=== PATIENT | male | born 1950 | race Caucasian/White ===

== ENCOUNTER → 2017-01-17 | Outpatient (REF) | payer MEDICARE | LOC: M LAB REF 16:33 | PROVIDERS: ATTEND Nurse Practitioner Adult Health | DX: G25.0 Essential tremor (principal) ==

== ENCOUNTER → 2017-03-29 | Outpatient (REF) | payer MEDICARE ==
[2017-04-03 00:06] LABS: PHENOBARBITAL (PRIMIDONE) 18 ug/mL (15-40)
== END ==
LOC: M LAB REF 17:25
PROVIDERS: ATTEND Nurse Practitioner Adult Health
DX: G25.0 Essential tremor (principal); Z79.899 Other long term (current) drug therapy

== ENCOUNTER → 2017-06-06 | Outpatient (REF) | payer MEDICARE | LOC: M LAB REF 17:44 | PROVIDERS: ATTEND Nurse Practitioner Adult Health | DX: D52.8 Other folate deficiency anemias (principal) ==

== ENCOUNTER → 2017-12-07 | Outpatient (REF) | payer MEDICARE ==
[2017-12-09 15:07] LABS: QUANTIFERON GOLD TB Negative (Negative); TB Test (QFT) Antigen 0.05 IU/mL (.); TB Test (QFT) Mitogen 6.33 IU/mL (.); TB Test (QFT) Nil 0.05 IU/mL (.)
== END ==
LOC: M LAB REF 14:22
DX: Z11.1 Encounter for screening for respiratory tuberculosis (principal)
CPT/HCPCS: 86480

== ENCOUNTER → 2018-06-20 | Outpatient (REF) | payer MEDICARE ==
[2018-06-22 08:06] LABS: LDL DIRECT 112 mg/dL (0-99)
== END ==
LOC: M LAB REF 16:44
DX: E78.5 Hyperlipidemia, unspecified (principal)
CPT/HCPCS: 83721

== ENCOUNTER 2018-06-30 17:43 | Emergency (ER) | payer MEDICARE ==
[~2018-06-30] VITALS: Ht 180.3 cm; Wt 132.3 kg
[2018-06-30] MEDS ORDERED: LOSA-4 PO (17:57)
[2018-06-30] MEDS ORDERED: PRIM125TAB PO (17:57)
[2018-06-30] MEDS ORDERED: HYDR-3713 PO (17:57)
[2018-06-30] MEDS ORDERED: METO1TAB33 PO (17:57)
[2018-06-30] MEDS ORDERED: SIMV40TA2 PO (17:57)
[2018-06-30] MEDS ORDERED: METH2.5T48 PO (17:57)
[2018-06-30] MEDS ORDERED: NS 1,000 ML IV ONE (18:15)
[2018-06-30 18:38] LABS: BASO % 0.3 % (0.0-1.0); EOS % 0.3 % (0.0-3.0); HEMATOCRIT 41.8 % (42.0-52.0); HEMOGLOBIN 14.8 g/dl (13.5-17.5); LYMPH # 1.1 10^3/uL (1.5-4.5); LYMPH % 14.4 % (24.0-44.0); MEAN CORPUSCULAR HEMOGLOBIN 35.7 pg (27.0-33.0); MEAN CORPUSCULAR HGB CONC 35.4 g/dl (32.0-36.5); MONO # 0.3 10^3/uL (0.0-0.8); NEUTROPHILS # 6.3 10^3/uL (1.8-7.7); NEUTROPHILS % 80.9 % (36.0-66.0); PLATELET COUNT, AUTOMATED 162 10^3/uL (150-450); RED BLOOD COUNT 4.14 10^6/uL (4.30-6.10); WHITE BLOOD COUNT 7.8 10^3/uL (4.0-10.0)
[2018-06-30 19:07] LABS: ALBUMIN 4.4 GM/DL (3.2-5.2); ALT/SGPT 50 U/L (12-78); BILIRUBIN,DIRECT 0.1 MG/DL (0.0-0.2); BILIRUBIN,TOTAL 0.3 MG/DL (0.2-1.0); BLOOD UREA NITROGEN 23 MG/DL (7-18); CALCIUM LEVEL 9.1 MG/DL (8.8-10.2); CARBON DIOXIDE LEVEL 26 MEQ/L (21-32); CHLORIDE LEVEL 104 MEQ/L (98-107); CREATININE FOR GFR 0.96 MG/DL (0.70-1.30); GLOMERULAR FILTRATION RATE > 60.0 (>49); GLUCOSE, FASTING 111 MG/DL (70-100); LIPASE 80 U/L (73-393); POTASSIUM SERUM 4.2 MEQ/L (3.5-5.1); SODIUM LEVEL 139 MEQ/L (136-145); TOTAL PROTEIN 7.7 GM/DL (6.4-8.2)
[2018-06-30] MEDS ORDERED: KETOROLAC 30 MG/ML VIAL (J1885) IV ONE (19:30)
[2018-06-30] MEDS ORDERED: ISOVUE-370 76% 100ML VIAL (Q9967) As Ordered ONE (19:42)
--- NOTE | 2018-06-30 20:14 | REP ---
Clinical: Lower abdominal pain. Technique: Axial contrast enhanced images from the lung bases to the pubic symphysis using 100 ml Isovue 370 intravenous contrast material with coronal and sagittal re-formations. Comparison: None. Findings: Lung bases demonstrate chronic fibroatelectatic changes. Liver, spleen, gallbladder, pancreas, bilateral adrenal glands and kidneys are essentially normal. 3 mm nonobstructing left renal calculus identified along with mild chronic bilateral perinephric stranding. The enteric system is without obstruction or acute inflammatory process. Normal terminal ileum, cecum and appendix are identified in the right lower quadrant. Extensive colonic and sigmoid diverticulosis noted. No definite evidence for acute diverticulitis. Pelvis demonstrates normal bladder and age appropriate prostate/seminal vesicles. No ascites. No free air. No intraperitoneal or retroperitoneal adenopathy. Surrounding musculoskeletal structures demonstrate degenerative change without focal osseous abnormality. Impression: 1. Extensive diverticulosis without definite evidence for acute diverticulitis. 2. 3 mm nonobstructing left renal calculus. 3. No further acute abdominopelvic pathology appreciated. This typically, no ascites, focal inflammatory stranding or adenopathy noted. Electronically Signed by Sameer Newsome MD 06/30/2018 08:06 P
--- NOTE | 2018-07-01 00:19 | REPVR ---
EXAM: MR Lumbar Spine Without Contrast. EXAM DATE/TIME: 06/30/2018 11:15 PM CLINICAL HISTORY: 68 years old, male; Anal leakage; Loss of anal tone TECHNIQUE: Multiplanar magnetic resonance images of the lumbar spine without intravenous contrast. COMPARISON: UN - CT ABD/PEL W/IV CONTRAST ONLY 06/30/2018 7:43:03 PM FINDINGS: Vertebrae: There is a lumbosacral transitional vertebra, which will be designated as S1 above the last well-defined intervertebral disc, and there is broadening of the both transverse proceses of the lumbosacral transitional vertebra, which are fused to both sides of the sacrum (Castellvi type IIIb lumbosacral transitional vertebra) and this stabilizes the level below the lumbosacral transitional vertebra and leads to the propensity for increased mobility and degenerative disc disease at the level above the lumbosacral transitional vertebra (Bertolotti's syndrome). There is a slight levoscoliosis of the lumbar spine. There is no fracture or subluxation. The vertebral body heights are preserved. Marrow: There is no infiltrative marrow replacing process. There is no evidence for discitis or osteomyelitis. Epidural space: There is no abnormal epidural fluid collection. Spinal cord: The conus medullaris is normal and terminates at the T12-L1 level. DISCS/SPINAL CANAL/NEURAL FORAMINA: T12-L1: Axial imaging was not performed at this level. The disc height is preserved. No disc herniation, spinal canal stenosis, lateral recess stenosis, or neural foraminal stenosis is noted. There are endplate spurs and mild osteoarthritis of the right facet joint. L1-L2: The disc height is preserved. There is desiccation, vacuum phenomenon in the intervertebral disc, mild endplate edema on both sides of the disc space, and endplate spurs projecting anteriorly. No disc herniation, spinal canal stenosis, lateral recess stenosis, or neural foraminal stenosis is noted. The facet joints are unremarkable. L2-L3: There is mild loss of disc height, desiccation, vacuum phenomenon in the intervertebral disc, a 3 mm broad-based posterior disc osteophyte complex, mild osteoarthritis of the facet joints, and endplate spurs. There is mild bilateral neural foraminal stenosis. No spinal canal stenosis or lateral recess stenosis is noted. L3-L4: There is mild loss of disc height dorsally, disc desiccation, mild endplate edema on both sides of the posterior aspect of the disc space, a 2 mm broad-based posterior protrusion, fissuring of the posterior portion of the annulus fibrosis, mild osteoarthritis of the right facet joint, endplate spurs, and increased epidural fat posteriorly. There is mild bilateral neural foraminal stenosis. No spinal canal stenosis or lateral recess stenosis is noted. L4-L5: The disc height is preserved. There is disc desiccation, a 2 mm broad-based posterior protrusion, fatty endplate degenerative changes on both sides of the posterior aspect of the disc space, mild osteoarthritis of the facet joints, increased epidural fat posteriorly, and thickening of the ligamentum flavum. No spinal canal stenosis, lateral recess stenosis, or neural foraminal stenosis is noted. L5-S1: The disc height is preserved. There is disc desiccation, a 2 mm broad-based posterior protrusion, and severe osteoarthritis of the facet joints. No spinal canal stenosis, lateral recess stenosis, or neural foraminal stenosis is noted. S1-S2: There is a lumbosacral transitional vertebra at this level. The disc height is preserved. No disc herniation, spinal canal stenosis, lateral recess stenosis, or neural foraminal stenosis is noted. The facet joints are normal. Soft tissues: No ligamentous sprain or muscular strain is noted. No soft tissue fluid collection is seen. There is nonspecific edema in the subcutaneous tissues dorsally along the midline of the lumbosacral spine. IMPRESSION: 1. Degenerative changes in the lumbar spine as detailed above, but without any severe spinal canal stenosis, lateral recess stenosis, neural foraminal stenosis, or nerve impingement. 2. L2-L3: Mild bilateral neural foraminal stenosis. 3. L3-L4: Mild bilateral neural foraminal stenosis. Electronically signed by: Harry Hernández On 07/01/2018 00:18:32 AM
[2018-07-01] MEDS ORDERED: MORPHINE 4 MG/ML 1ML VIAL/SYRINGE (J2270) IV ONE (01:15)
[2018-07-01 02:11] VITALS: BP 153/70
== END 2018-07-01 02:15 | disposition short-term general hospital (02) ==
LOC: M ED 17:43
DX: R15.9 Full incontinence of feces (principal); N20.0 Calculus of kidney; I10 Essential (primary) hypertension; G25.0 Essential tremor; E78.5 Hyperlipidemia, unspecified; Z87.891 Personal history of nicotine dependence
CPT/HCPCS: 72148; 74177; 80048; 80076; 81001; 83605; 83690; 85025; 96374; 96375; 99291; J1885; J2270; Q9967

== ENCOUNTER → 2018-10-04 | Outpatient (REF) | payer MEDICARE ==
[~2018-10-04] MED LIST: HYDR-3713 PO; LOSA100T50 PO; METH2.5T48 PO; METO1TAB33 PO; PRIM125TAB PO; SIMV40TA2 PO
[2018-10-04 14:17] LABS: INFLUENZA A AMPLIFICATION NEGATIVE (NEGATIVE); INFLUENZA B AMPLIFICATION NEGATIVE (NEGATIVE)
== END ==
LOC: M LAB REF 13:21
PROVIDERS: ATTEND Nurse Practitioner Family
DX: B34.9 Viral infection, unspecified (principal)

== ENCOUNTER → 2018-10-15 | Outpatient (REF) | payer MEDICARE | LOC: M LAB REF 17:00 | PROVIDERS: ATTEND Nurse Practitioner Adult Health | DX: R53.81 Other malaise (principal) ==

== ENCOUNTER → 2018-11-08 | Outpatient (REF) | payer MEDICARE ==
[2018-11-08 18:19] LABS: HEMATOCRIT 40.3 % (42.0-52.0); MEAN CORPUSCULAR HEMOGLOBIN 35.5 pg (27.0-33.0); MEAN CORPUSCULAR HGB CONC 34.7 g/dl (32.0-36.5); MEAN CORPUSCULAR VOLUME 102.3 fl (80.0-96.0); PLATELET COUNT, AUTOMATED 126 10^3/uL (150-450); RED BLOOD COUNT 3.94 10^6/uL (4.30-6.10)
[2018-11-08 18:40] LABS: ALBUMIN 4.2 GM/DL (3.2-5.2); ALT/SGPT 41 U/L (12-78); BILIRUBIN,DIRECT < 0.1 MG/DL (0.0-0.2); BILIRUBIN,TOTAL 0.4 MG/DL (0.2-1.0); TOTAL PROTEIN 7.4 GM/DL (6.4-8.2)
[2018-11-11 10:23] LABS: HEPATITIS B SURFACE ANTIBODY NEGATIVE (POSITIVE)
[2018-11-11 10:33] LABS: HEPATITIS B SURFACE ANTIGEN NEGATIVE (NEGATIVE)
== END ==
LOC: M SFHCPLAZ 14:59
PROVIDERS: ATTEND Dermatology
DX: L85.3 Xerosis cutis (principal)

== ENCOUNTER → 2019-10-15 | Outpatient (REF) | payer MEDICARE ==
[~2019-10-15] MED LIST changes: -SIMV40TA2 PO; +SIMV40TA20 PO
[2019-10-15 11:21] LABS: ALBUMIN 4.3 GM/DL (3.2-5.2); ALT/SGPT 31 U/L (12-78); BILIRUBIN,TOTAL 0.4 MG/DL (0.2-1.0); BLOOD UREA NITROGEN 21 MG/DL (7-18); CALCIUM LEVEL 8.9 MG/DL (8.8-10.2); CARBON DIOXIDE LEVEL 29 MEQ/L (21-32); CHLORIDE LEVEL 102 MEQ/L (98-107); CREATININE FOR GFR 0.75 MG/DL (0.70-1.30); GLOMERULAR FILTRATION RATE > 60.0 (>42); GLUCOSE, FASTING 95 MG/DL (70-100); POTASSIUM SERUM 4.1 MEQ/L (3.5-5.1); SODIUM LEVEL 138 MEQ/L (136-145); TOTAL PROTEIN 7.4 GM/DL (6.4-8.2)
== END ==
LOC: M SFHCPLAZ 08:50
PROVIDERS: ATTEND Nurse Practitioner Family
DX: I10 Essential (primary) hypertension (principal)

== ENCOUNTER → 2019-11-03 | Outpatient (REF) | payer MEDICARE ==
[2019-11-03 13:40] LABS: ALBUMIN 4.3 GM/DL (3.2-5.2); ALT/SGPT 33 U/L (12-78); BILIRUBIN,TOTAL 0.3 MG/DL (0.2-1.0); BLOOD UREA NITROGEN 17 MG/DL (7-18); CALCIUM LEVEL 9.1 MG/DL (8.8-10.2); CARBON DIOXIDE LEVEL 28 MEQ/L (21-32); CHLORIDE LEVEL 106 MEQ/L (98-107); CHOLESTEROL LEVEL 229 MG/DL (<200); CHOLESTEROL RISK RATIO 5.725 (<5); CREATININE FOR GFR 0.79 MG/DL (0.70-1.30); GLOMERULAR FILTRATION RATE > 60.0 (>42); GLUCOSE, FASTING 112 MG/DL (70-100); HDL CHOLESTEROL 40 MG/DL (>40); LDL CHOLESTEROL 121 MG/DL (<100); NON-HDL-C 189 MG/DL; POTASSIUM SERUM 4.6 MEQ/L (3.5-5.1); SODIUM LEVEL 141 MEQ/L (136-145); TOTAL PROTEIN 7.6 GM/DL (6.4-8.2); TRIGLYCERIDES LEVEL 339 MG/DL (<150)
[2019-11-03 13:48] LABS: TOTAL 25(OH) VITAMIN D 23.5 NG/ML (30.0-100.0)
[2019-11-03 14:02] LABS: CREATININE, URINE 29.4 MG/DL; MALB URINE SIEMENS < 5.0 MG/L
== END ==
LOC: M PLALAB 10:28
PROVIDERS: ATTEND Nurse Practitioner Family
DX: E78.2 Mixed hyperlipidemia (principal); Z12.5 Encounter for screening for malignant neoplasm of prostate; I10 Essential (primary) hypertension; M19.91 Primary osteoarthritis, unspecified site
CPT/HCPCS: 36415; 80053; 80061; 82043; 82306; G0103

== ENCOUNTER → 2019-12-25 | Outpatient (REF) | payer MEDICARE ==
[2019-12-25 13:35] LABS: BASO % 0.5 % (0.0-1.0); EOS # 0.1 10^3/uL (0.0-0.5); EOS % 2.1 % (0.0-3.0); HEMATOCRIT 40.6 % (42.0-52.0); LYMPH # 1.7 10^3/uL (1.5-5.0); LYMPH % 40.1 % (24.0-44.0); MEAN CORPUSCULAR HEMOGLOBIN 34.3 pg (27.0-33.0); MEAN CORPUSCULAR HGB CONC 34.5 g/dl (32.0-36.5); MEAN CORPUSCULAR VOLUME 99.5 fl (80.0-96.0); MONO # 0.3 10^3/uL (0.0-0.8); MONO % 6.7 % (0.0-5.0); NEUTROPHILS # 2.1 10^3/uL (1.5-8.5); NEUTROPHILS % 49.9 % (36.0-66.0); PLATELET COUNT, AUTOMATED 138 10^3/uL (150-450); RED BLOOD COUNT 4.08 10^6/uL (4.30-6.10); WHITE BLOOD COUNT 4.2 10^3/uL (4.0-10.0)
[2019-12-25 13:56] LABS: C REACTIVE PROTEIN QUANTITATIV 0.85 MG/DL (0.00-0.30); RHEUMATOID FACTOR QUANT < 10.0 IU/ML (<15.0)
[2019-12-25 14:06] LABS: ERYTHROCYTE SEDIMENTATION RATE 13 mm/hr (0-20)
[2019-12-26 21:07] LABS: ANA (HEP2) Positive (.)
== END ==
LOC: M SFHCPLAZ 12:24
PROVIDERS: ATTEND Nurse Practitioner Family
DX: M25.50 Pain in unspecified joint (principal)

== ENCOUNTER → 2020-02-11 | Outpatient (REF) | payer MEDICARE ==
[2020-03-27 11:47] LABS: ALBUMIN 4.4 GM/DL (3.2-5.2); ALT/SGPT 34 U/L (12-78); BILIRUBIN,TOTAL 0.3 MG/DL (0.2-1.0); BLOOD UREA NITROGEN 21 MG/DL (7-18); CARBON DIOXIDE LEVEL 30 MEQ/L (21-32); CHLORIDE LEVEL 108 MEQ/L (98-107); CHOLESTEROL LEVEL 206 MG/DL (<200); CHOLESTEROL RISK RATIO 4.681 (<5); CREATININE FOR GFR 0.75 MG/DL (0.70-1.30); GLOMERULAR FILTRATION RATE > 60.0 (>42); GLUCOSE, FASTING 116 MG/DL (70-100); HDL CHOLESTEROL 44 MG/DL (>40); HEMOGLOBIN A1c 5.6 %; LDL CHOLESTEROL 94 MG/DL (<100); NON-HDL-C 162 MG/DL; POTASSIUM SERUM 4.2 MEQ/L (3.5-5.1); SODIUM LEVEL 142 MEQ/L (136-145); TOTAL 25(OH) VITAMIN D 26.5 NG/ML (30.0-100.0); TOTAL PROTEIN 7.4 GM/DL (6.4-8.2); TRIGLYCERIDES LEVEL 342 MG/DL (<150)
== END ==
LOC: M SFHCPLAZ 09:06
PROVIDERS: ATTEND Nurse Practitioner Family
DX: R73.01 Impaired fasting glucose (principal); E55.9 Vitamin D deficiency, unspecified; I10 Essential (primary) hypertension; E78.2 Mixed hyperlipidemia; Z79.899 Other long term (current) drug therapy

== ENCOUNTER → 2020-08-18 | Outpatient (REF) | payer MEDICARE ==
[2020-08-18 13:33] LABS: HEMATOCRIT 42.5 % (42.0-52.0); HEMOGLOBIN 14.4 g/dl (13.5-17.5); MEAN CORPUSCULAR HEMOGLOBIN 33.5 pg (27.0-33.0); MEAN CORPUSCULAR HGB CONC 33.9 g/dl (32.0-36.5); MEAN CORPUSCULAR VOLUME 98.8 fl (80.0-96.0); PLATELET COUNT, AUTOMATED 161 10^3/uL (150-450); WHITE BLOOD COUNT 4.4 10^3/uL (4.0-10.0)
[2020-08-18 14:03] LABS: BLOOD UREA NITROGEN 24 MG/DL (7-18); CALCIUM LEVEL 9.6 MG/DL (8.8-10.2); CARBON DIOXIDE LEVEL 31 MEQ/L (21-32); CHLORIDE LEVEL 103 MEQ/L (98-107); CREATININE FOR GFR 0.88 MG/DL (0.70-1.30); GLOMERULAR FILTRATION RATE > 60.0 (>42); GLUCOSE, FASTING 100 MG/DL (70-100); POTASSIUM SERUM 4.2 MEQ/L (3.5-5.1); SODIUM LEVEL 141 MEQ/L (136-145)
[2020-08-18 14:57] LABS: HEMOGLOBIN A1c 5.5 %
== END ==
LOC: M SFHCPLAZ 09:46
PROVIDERS: ATTEND Nurse Practitioner Adult Health
DX: R73.01 Impaired fasting glucose (principal); R68.89 Other general symptoms and signs; Z20.822 Contact with and (suspected) exposure to COVID-19
CPT/HCPCS: 36415; 80048; 83036; 85027; U0003

== ENCOUNTER → 2020-12-27 | Outpatient (REF) | payer MEDICARE ==
[2020-12-27 18:15] LABS: ALBUMIN 4.2 GM/DL (3.2-5.2); ALT/SGPT 32 U/L (12-78); BILIRUBIN,TOTAL 0.3 MG/DL (0.2-1.0); BLOOD UREA NITROGEN 15 MG/DL (7-18); CALCIUM LEVEL 9.1 MG/DL (8.8-10.2); CARBON DIOXIDE LEVEL 31 MEQ/L (21-32); CHLORIDE LEVEL 107 MEQ/L (98-107); CREATININE FOR GFR 0.73 MG/DL (0.70-1.30); GLOMERULAR FILTRATION RATE > 60.0 (>42); GLUCOSE, FASTING 104 MG/DL (70-100); POTASSIUM SERUM 4.1 MEQ/L (3.5-5.1); SODIUM LEVEL 143 MEQ/L (136-145); TOTAL PROTEIN 7.3 GM/DL (6.4-8.2)
[2020-12-27 18:22] LABS: TOTAL 25(OH) VITAMIN D 25.1 NG/ML (30.0-100.0)
[2020-12-27 19:57] LABS: HEMOGLOBIN A1c 5.8 %
== END ==
LOC: M SFHCPLAZ 14:33
PROVIDERS: ATTEND Nurse Practitioner Adult Health
DX: R73.01 Impaired fasting glucose (principal); E55.9 Vitamin D deficiency, unspecified; I10 Essential (primary) hypertension

== ENCOUNTER → 2021-01-19 | Outpatient (CLI) | payer MEDICARE ==
--- NOTE | 2021-01-19 13:24 | REP ---
INDICATION: LEFT KNEE INJURY. COMPARISON: None. TECHNIQUE: Five views of the left knee are provided. FINDINGS: Five views of the left knee demonstrate overall normal mineralization. There is medial compartment joint space narrowing, subcortical cyst formation, spur formation, and sclerosis consistent with osteoarthritis. There is patellofemoral spurring as well. There is also non articular spurring on the superior pole the patella at the quadriceps tendon insertion. Mild vascular calcification is noted. Posterior tibial spurring is seen on the lateral radiograph. Possible small joint effusion.. No fracture or subluxation is seen. . IMPRESSION: Medial and patellofemoral compartment osteoarthritis. Possible joint effusion.. <Electronically signed by Juarez Brothers > 01/19/21 [id number]
== END ==
LOC: M PLAIMG 12:50
PROVIDERS: ATTEND Nurse Practitioner Adult Health
DX: M17.12 Unilateral primary osteoarthritis, left knee (principal)

== ENCOUNTER 2021-05-25 11:58 | Emergency (ER) | payer MEDICARE ==
[~2021-05-25] VITALS: Ht 177.8 cm; Wt 122.6 kg
[2021-05-25 11:59] VITALS: BP 158/74
[2021-05-25] MEDS ORDERED: PROP60CA (12:06)
[2021-05-25] MEDS ORDERED: DULO1CAP4 (12:06)
[2021-05-25] MEDS ORDERED: TORS10TA3 (12:06)
[2021-05-25] MEDS ORDERED: CELE1CAP9 (12:06)
[2021-05-25] MEDS ORDERED: ATOR40TA75 (12:06)
--- OUTSIDE RECORDS SUMMARY | 2021-05-25 12:06 | CCD ---
Author Author [facility] Organization [facility] Address Unknown Phone Unavailable Care Team Providers Care Utility Arborist Name Role Phone Adriana Hightower Unavailable PROBLEMS Type Condition ICD9-CM Code [id number] Code Onset Dates Condition S tatus W/U Status Risk SNOMED Code Notes Problem Seborrheic dermatitis L21.9 Active confirmed 71222189 Problem Actinic keratoses L57.0 Active confirmed 40 3980947 Problem Xerosis cutis L85.3 Active confirmed 358728 00 Problem Seborrheic keratoses L82.1 Active confirmed 647764011 Problem Essential (primary) hypertension I10 Active conf irmed 65792130 Problem Essential tremor G25.0 Active confirmed 609 808920 Problem Mixed hyperlipidemia E78.2 Active confirmed 432945923 Problem Right hip pain M25.551 Active confirmed 3169 [id number] Problem Primary osteoarthritis, unspecified site M19.91 Active confirmed 540418826 Problem Frequent falls R29.6 Active confirmed 09638 2001 Problem Lentigines L81.4 Active confirmed 327117323 Problem Vitamin D deficiency E55.9 Active confirmed 68469381 Problem Elevated fasting glucose R73.01 Active confirmed 85107293 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 Active confirmed 158235 04 Problem Body mass index (BMI) of 40.1 to 44.9 in adult Z68 .41 Active confirmed 241869270 ALLERGIES No Known Allergies ENCOUNTERS from 1950 to 2021-05-12 Encounter Location Date Provider Diagnosis [address] [phone] [place] [address] May, Adriana Hightower IMMUNIZATIONS Vaccine Route Administration Date Status COVID-19 dose #1 given elsewhere Unspecified Unknown Aug 11, 2020 Administered Influenza Pharmacy Given Unknown May 03, 2020 Adminis tered Influenza 18 yrs & older Flublok IM Intramuscular Aug 04, 2019 Administered SOCIAL HISTORY Tobacco Use: Social History Observation Description Date Details (start date - stop date) Former Smoker Sex Assigned At : Social History Observation Description Sex Assigned At Unknown Audit Question Answer Notes Total Score: 1 Interpretation: Alcohol Education Language: Question Answer Notes Languages spoken: Sinhala Yarsanism: Question Answer Notes Yarsanism 21 Scientology Sexual Hx: Question Answer Notes Had sex in the last 12 months (vaginal, oral, or anal)? No Have you ever had an STD? No Drug and Alcohol Question Answer Notes Total Score: 0 Interpretation: No problems reported BMI Care Goal Follow-Up Question Answer Notes Above Normal BMI Follow-Up Dietary management educatio n, guidance, and counseling Tobacco Use: Question Answer Notes Are you a: former smoker How long has it been since you last smoked? > 10 years REASON FOR REFERRAL No Information VITAL SIGNS No information MEDICATIONS Medication SIG (Take, Route, Frequency, Duration) Notes Start Da te End Date Status Propranolol HCl ER 60 MG 1 capsule Orally twice daily for 90 day(s) Active DULoxetine HCl 20 MG 1 capsule Orally Daily for 90 day(s) Dec, Active Chromium 1 MG 1 capsule Orally Twice a day Active Mometasone Furoate 0.1 % 1 application Externally Twi ce a day for five days once monthly as needed for 30 days Dec, Ac tive Torsemide 10 MG 1 tablet Orally Once a day for 90 day(s) Active Losartan Potassium 100 MG 1 tablet orally once daily for 90 days Active Atorvastatin Calcium 40 MG 1 tablet Orally Once a day for 90 Active Atorvastatin Calcium 40 MG 1 tablet Orally Once a day for 90 day(s) Active Vitamin B-6 100 MG 1 tablet Orally Once a day for 30 day(s) Active Metoprolol Succinate ER 100 MG 1 tablet Orally Once a day for 90 day( s) Active Vitamin D3 50 MCG (1999 UT) 1 capsule Orally Once a day for 30 day(s) Active Sulfacetamide-Sulfur Wash 10-5 wash topical Wash face and chest daily as instructed for 30 days Dec, Active Topamax 25 MG 1 tablet Orally Once a day Active Ketoconazole 2 % 1 application to affected ar ea Externally BID to face and scalp areas with gritty rash for 30 day(s) Active Vitamin B-1 100 MG 1 tablet Orally Once a day for 30 day(s) Active CeleBREX 200 MG 1 capsule with food Orally Once a day for 90 day(s) Active Primidone 250 MG 1.5 tabs orally three times daily for 90 days Active Hydrocortisone 2.5 % 1 application to affected ar ea Externally BID to areas on face to ears with rash after keto cream applied for 30 days 12 2018 Active Vitamin B-12 1000 MCG 1 tablet Orally Once a day Active Zithromax 250 MG 2 tablet on the first day, then 1 tablet daily for 4 days Orally Once a day for 5 day(s) Apr, A ctive Multi Vitamin Daily _ 2 gummies Orally Once a day Active Aspirin 81 81 MG 1 tablet Orally Once a day Active Aleve 220 MG 1 tablet with food or milk as needed Orally Twice a day Active Cephalexin 500 MG 1 tablet Orally Four times a day for 10 days Apr, Active traMADol HCl 50 MG 1 tablet [id number] tid prn right hip pain mdd3 for 30 days last fill 03/31/21 due Sunday do not fill early please Apr, Active PROCEDURES No Information RESULTS No Results REASON FOR VISIT Need all new scripts sent to [facility] MEDICAL (GENERAL) HISTORY Type Description Date Medical History HTN Medical History Hyperlipidemia Medical History Essential tremors Medical History elevated blood sugar Medical History osteoarthritis Medical History left knee needs replacement Medical History vitamin d deficiency Medical History Actinic Keratosis Medical History nuclear stress test years ago Dr. Woods 's office Medical History right hip pain- mri 11/26/20 minimal degenerative changes of hip joint Surgical History skull surgery (eyeball inucleated) Surgical History meniscus repair Right knee 2013 Surgical History Right Knee replacement 02/2019 Hospitalization History surgical Hospitalization History pnuemonia as a child Hospitalization History r/o intestional blockage 06/2018 Goals Section No Information Health Concerns No Information MEDICAL EQUIPMENT No Information MENTAL STATUS No Information FUNCTIONAL STATUS No Information ASSESSMENTS No Information PLAN OF TREATMENT Medication Medication Name Sig Start Date Stop Date Cephalexin 500 MG 1 tablet Orally Four times a day for 10 days 1 9 Apr, 2021 traMADol HCl 50 MG 1 tablet [id number] tid prn right hip pain mdd3 for 30 days Apr, Metoprolol Succinate ER 100 MG 1 tablet Orally Once a day for 90 day(s) DULoxetine HCl 20 MG 1 capsule Orally Daily for 90 day(s) Dec Zithromax 250 MG 2 tablet on the first day, then 1 tablet daily for 4 days Orally Once a day for 5 day(s) Apr, Primidone 250 MG 1.5 tabs orally three times daily for 90 days CeleBREX 200 MG 1 capsule with food Orally Once a day for 90 day (s) Losartan Potassium 100 MG 1 tablet orally once daily for 90 days Propranolol HCl ER 60 MG 1 capsule Orally twice daily for 90 day (s) Atorvastatin Calcium 40 MG 1 tablet Orally Once a day for 90 day (s) Torsemide 10 MG 1 tablet Orally Once a day for 90 day(s) Next Appt Details Provider Name:Adriana Hightower, 10:30:00 AM, [address] [facility], , [place], [address], Insurance Providers Payer Name Payer Address Payer Phone Insured Name Patient Relati onship to Insured Coverage Start Date Coverage End Date MEDICARE BLUE PPO [address] [facility] [address] [address] VALERIANO CEDENO self
--- OUTSIDE RECORDS SUMMARY | 2021-05-25 12:06 | CCD | Continuity of Care Document ---
Author [facility] Organization Unknown Address [address] [place] [address] Phone [phone] Care Team Providers Care Roadway Technician Name Role Phone AUTM Unavailable Adriana Hightower R.N. AUTM [phone] AUTM Unavailable Problems Description No Information Available Social History Type Date Description Comments Sex Unknown Tobacco Use Start: Unknown End: Patient is a former smoker 2 ppd Smoking Status Reviewed: 05/20/21 Patient is a former smoker 2 ppd Allergies and adverse reactions Description No Known Drug Allergies Medications Active Medications SIG Qnty Indications Ordering Provide r Date Topiramate 25mg Tablets 1 tab by mouth every day 30tabs Unknown Atorvastatin Calcium 40mg Tablets 1 tab by mouth every day Adriana Hightower A.N.P. Torsemide 10mg Tablets 1 tab by mouth every day 30tabs Adriana Hightower A.N.P. Duloxetine HCL 20mg Caps DR Part Take One Capsule By Mouth Every Day Unknown Losartan Potassium 100mg Tablets Take 1 Tablet By Mouth Every Day Adriana Hightower A.N.P . Tramadol HCL 50mg Tablets 1 tab by mouth everydau Adriana Hightower A.N.P. 00 Primidone 250mg Tablets Take 1 And 1/2 Tablets By Mouth Three Times Daily Ethan Hightower A.N.P. Celecoxib 200mg Capsules Take 1 Capsule By Mouth Every Day With Food Unknown Propranolol HCL ER 60mg Caps ER 24 HR Take 2 Capsules By Mouth Every Day. Maximum Daily Dose Is 2 Unknown Multivitamin Tablets 1 by mouth every day Unknown Chromium 400mcg Tablets 1 tab by mouth every day Unknown Vitamin B1 100mg Tablets 1 tab by mouth every day Unknown Vitamin B 6 50mg Tablets 1 tab by mouth every day Unknown Vitamin B 12 500mcg Tablets one tablet by mouth daily. Unknown Glucosamine Chondroitin 1500 Complex 1500Com Capsules 1 tab by mouth every day Unknown Immunizations Description No Information Available Vital Signs Date Vital Result Comment 05/20/2021 8:05am BP Systolic 120 mmHg BP Diastolic 74 mmHg Heart Rate 74 /min O2 % BldC Oximetry 93 % Height 71 inches 5'11" Weight 272.00 lb BMI (Body Mass Index) 37.9 kg/m2 [place] Body Weight 172 lb Neck Circumference in inches 19 [place] Score 12 Weight 123.379 kg BSA (Body Surface Area) 2.40 m2 Results Description No Information Available Procedures Description No Information Available Medical Devices Description No Information Available Encounters Description No Information Available Assessments Date Code Description Provider 05/20/2021 R06.83 Snoring Nona Berry N .PLeno 05/20/2021 R40.0 Somnolence Nona Berry N .P. Plan of Treatment Future Appointment(s):* 06/19/2021 7:45 pm - [facility] at [facility] Pulmonary/Thoracic 05/20/2021 - Nona Berry NNatty* R06.83 Snoring * R40.0 Somnolence * * New Orders:* Sleep Nocturnal Diagnostic Sleep Study, Ordered: 05/20/21 * Follow up:* 1. Follow up after testing. Functional Status Description No Information Available Mental Status Description No Information Available Referrals Refer to Reason for Referral Status Appt Date Nona Berry F.NNatty SNORING Scheduled 05/20/2021 [facility] Medical [facility] [address] [place], [place] [id number] [phone]
--- OUTSIDE RECORDS SUMMARY | 2021-05-25 12:06 | CCD ---
Author Author [facility] Organization [facility] Address Unknown Phone Unavailable Care Team Providers Care Teaseler Name Role Phone Adriana Hightower Unavailable PROBLEMS Type Condition ICD9-CM Code [id number] Code Onset Dates Condition S tatus W/U Status Risk SNOMED Code Notes Problem Seborrheic dermatitis L21.9 Active confirmed 55947431 Problem Actinic keratoses L57.0 Active confirmed 40 6812951 Problem Xerosis cutis L85.3 Active confirmed 988478 00 Problem Seborrheic keratoses L82.1 Active confirmed 154795357 Problem Essential (primary) hypertension I10 Active conf irmed 80688379 Problem Essential tremor G25.0 Active confirmed 609 137163 Problem Mixed hyperlipidemia E78.2 Active confirmed 947451766 Problem Right hip pain M25.551 Active confirmed 3169 [id number] Problem Primary osteoarthritis, unspecified site M19.91 Active confirmed 299947225 Problem Frequent falls R29.6 Active confirmed 75611 2001 Problem Lentigines L81.4 Active confirmed 575327303 Problem Vitamin D deficiency E55.9 Active confirmed 24432328 Problem Elevated fasting glucose R73.01 Active confirmed 10138965 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 Active confirmed 873827 04 Problem Body mass index (BMI) of 40.1 to 44.9 in adult Z68 .41 Active confirmed 081863208 ALLERGIES No Known Allergies ENCOUNTERS from 1950 to 2021-05-02 Encounter Location Date Provider Diagnosis [address] [phone] [place] [address] Apr, Adriana Hightower IMMUNIZATIONS Vaccine Route Administration Date [...] Education Language: Question Answer Notes Languages spoken: Slovenian Restorationist: Question Answer Notes Restorationist 21 Scientologist Sexual Hx: Question Answer Notes Had sex [...] Notes Start Da te End Date Status Losartan Potassium 100 MG TAKE 1 TABLET BY MOUTH EVERY DAY for 90 Active Mometasone Furoate 0.1 % 1 application Externally Twi ce a day for five days once monthly as needed for 30 days Dec, Ac tive Ketoconazole 2 % 1 application to affected ar ea Externally BID to face and scalp areas with gritty rash for 30 day(s) Active Topamax 25 MG 1 tablet Orally Once a day Active Vitamin B-1 100 MG 1 tablet Orally Once a day for 30 day(s) Active Vitamin B-6 100 MG 1 tablet Orally Once a day for 30 day(s) Active Atorvastatin Calcium 40 MG 1 tablet Orally Once a day for 90 Active Sulfacetamide-Sulfur Wash 10-5 wash topical Wash face and chest daily as instructed for 30 days Dec, Active Multi Vitamin Daily _ 2 gummies Orally Once a day Active Aleve 220 MG 1 tablet with food or milk as needed Orally Twice a day Active Cephalexin 500 MG 1 tablet Orally Four times a day for 10 days Apr, Active Vitamin D3 50 MCG (2000 UT) 1 capsule Orally Once a day for 30 day(s) Active Chromium 1 MG 1 capsule Orally Twice a day Active CeleBREX 200 MG 1 capsule with food Orally Once a day for 30 days Active Propranolol HCl ER 60 MG 1 capsule Orally twice daily Active Vitamin B-12 1000 MCG 1 tablet Orally Once a day Active Propranolol HCl 20 MG 1 tablet Oral Twice a day for 90 day(s) Active Aspirin 81 81 MG 1 tablet Orally Once a day Active Hydrocortisone 2.5 % 1 application to affected ar ea Externally BID to areas on face to ears with rash after keto cream applied for 30 days 2018 Active DULoxetine HCl 20 MG 1 capsule Orally Daily for 90 day(s) Dec, Active Atorvastatin Calcium 40 MG 1 tablet Orally Once a day for 90 day(s) Active Metoprolol Succinate ER 100 MG 1 tablet Orally Once a day for 90 day( s) Active Primidone 250 MG TAKE 1 AND 1/2 TABLETS BY MOUTH THREE TIMES DAILY Active traMADol HCl 50 MG 1 tablet [id number] tid prn right hip pain mdd3 for 30 days last fill 03/31/21 due Sunday do not fill early please Apr, Active Torsemide 10 MG 1 tablet Orally Once a day for 90 day(s) Active PROCEDURES No Information RESULTS No Results REASON FOR VISIT Update Demographics - Additional Info MEDICAL (GENERAL) HISTORY Type Description Date Medical [...] 2021 traMADol HCl 50 MG 1 tablet [id number] tid prn right hip pain mdd3 for 30 days Apr, Losartan Potassium 100 MG TAKE 1 TABLET BY MOUTH EVERY DAY for 9 0 Next Appt Details Provider Name:Adriana Hightower, 2021-07- 10:30:00 AM, [address] [facility], , [place], [address], Insurance Providers Payer Name Payer Address Payer Phone Insured Name Patient Relati onship to Insured Coverage Start Date Coverage End Date MEDICARE BLUE O [address] [id number] VALERIANO CEDENO self
--- OUTSIDE RECORDS SUMMARY | 2021-05-25 12:06 | CCD ---
Author Author [facility] Organization [facility] Address Unknown Phone Unavailable Care Team Providers Care Metal Technician Name Role Phone Adriana Hightower Unavailable PROBLEMS Type Condition ICD9-CM Code [id number] Code Onset Dates Condition S tatus W/U Status Risk SNOMED Code Notes Problem Seborrheic dermatitis L21.9 Active confirmed 63362860 Problem Actinic keratoses L57.0 Active confirmed 40 4622203 Problem Xerosis cutis L85.3 Active confirmed 373094 00 Problem Seborrheic keratoses L82.1 Active confirmed 978845009 Problem Essential (primary) hypertension I10 Active conf irmed 83664699 Problem Essential tremor G25.0 Active confirmed 609 441213 Problem Mixed hyperlipidemia E78.2 Active confirmed 647357168 Problem Right hip pain M25.551 Active confirmed 3169 [id number] Problem Primary osteoarthritis, unspecified site M19.91 Active confirmed 940903262 Problem Frequent falls R29.6 Active confirmed 24652 2001 Problem Lentigines L81.4 Active confirmed 210562517 Problem Vitamin D deficiency E55.9 Active confirmed 45519168 Problem Elevated fasting glucose R73.01 Active confirmed 12890818 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 Active confirmed 879153 04 Problem Body mass index (BMI) of 40.1 to 44.9 in adult Z68 .41 Active confirmed 100969502 ALLERGIES No Known Allergies ENCOUNTERS from 1950 to 2021-04-30 Encounter Location Date Provider Diagnosis [address] [phone] [place] [address] 11 Apr, 2021 Adriana Hightower IMMUNIZATIONS Vaccine Route Administration Date [...] Education Language: Question Answer Notes Languages spoken: Amharic Orthodox: Question Answer Notes Orthodox 21 Judaism Sexual Hx: Question Answer Notes Had sex [...] Notes Start Da te End Date Status Vitamin B-6 100 MG 1 tablet Orally Once a day for 30 day(s) Active Losartan Potassium 100 MG 1 tablet Orally Once a day for 90 Active Ketoconazole 2 % 1 application to affected ar ea Externally BID to face and scalp areas with gritty rash for 30 day(s) Active Mometasone Furoate 0.1 % 1 application Externally Twi ce a day for five days once monthly as needed for 30 days Dec, Ac tive Sulfacetamide-Sulfur Wash 10-5 wash topical Wash face and chest daily as instructed for 30 days Dec, Active Vitamin B-1 100 MG 1 tablet Orally Once a day for 30 day(s) Active Atorvastatin Calcium 40 MG 1 tablet Orally Once a day for 90 Active Vitamin B-12 1000 MCG 1 tablet Orally Once a day Active Multi Vitamin Daily _ 2 gummies Orally Once a day Active Aleve 220 MG 1 tablet with food or milk as needed Orally Twice a day Active Cephalexin 500 MG 1 tablet Orally Four times a day for 10 days Apr, Active Vitamin D3 50 MCG (2000 UT) 1 capsule Orally Once a day for 30 day(s) Active Propranolol HCl 20 MG 1 tablet Oral Twice a day for 90 day(s) Active CeleBREX 200 MG 1 capsule with food Orally Once a day for 30 days Active Propranolol HCl ER 60 MG 1 capsule Orally twice daily Active Chromium 1 MG 1 capsule Orally Twice a day Active Topamax 25 MG 1 tablet Orally Once a day Active Aspirin 81 [...] Active traMADol HCl 50 MG 1 tablet [id number] tid prn right hip pain mdd3 for 30 days last fill 03/31/21 due Sunday do not fill early please Apr, Active Torsemide 10 MG 1 tablet Orally Once a day for 90 day(s) Active PROCEDURES No Information RESULTS No Results REASON FOR VISIT referral MEDICAL (GENERAL) HISTORY Type Description Date Medical [...] times a day for 10 days 1 Apr, traMADol HCl 50 MG 1 tablet [id number] tid prn right hip pain mdd3 for 30 days Apr, Next Appt Details Provider Name:Adriana Hightower, 10:30:00 AM, [address] [place] [address], , [place], [address], Insurance Providers Payer Name Payer Address Payer Phone Insured Name Patient Relati onship to Insured Coverage Start Date Coverage End Date MEDICARE BLUE PPO [address] [place] [id number] VALERIANO CEDENO self
--- OUTSIDE RECORDS SUMMARY | 2021-05-25 12:06 | CCD | Continuity of Care Document ---
Author [facility] N[facility] Organization Unknown Address [address] [place] [address] Phone [phone] Care Team Providers Care Cotton Picker Operator Name Role Phone AUTM Unavailable Adriana Hightower R.N. AUTM [phone] AUTM Unavailable Problems Description No Information Available [...] Tablets By Mouth Three Times Daily Ethan Highotwer A.N.P. Celecoxib 200mg Capsules Take 1 Capsule [...] lb BMI (Body Mass Index) 37.9 kg/m2 [place] Body Weight 172 lb Neck Circumference in inches 19 [place] Score 12 Weight 123.379 kg BSA (Body Surface Area) 2.40 m2 Results Description No Information Available Procedures Date Code Description Status 05/20/2021 07719 Office/Outpatient New Low MDM 30 -44 Minutes Completed Medical Devices Description No Information Available Encounters Type Date Location Provider Dx Diagnosis Office Visit 05/20/2021 8:00a [facility] Pulmonary/Thoracic Ashok Berry N.PLeno R06.83 Snoring R40.0 Somnolence Assessments Date Code Description Provider 05/20/2021 R06.83 Snoring Nona Berry, N .PLeno 05/20/2021 R40.0 Somnolence Nona Berry, N .P. Plan of Treatment Future Appointment(s):* 07/13/2021 3:00 pm - Gigi Vasquez MD at [facility] Pulmonary/Thoracic * 06/19/2021 7:45 pm - [facility] Sleep Lab at [facility] Pulmonary/Thoracic 05/20/2021 - Nona Berry, N.P.* R06.83 Snoring * R40.0 Somnolence * * New Orders:* Sleep Nocturnal Diagnostic Sleep Study, Scheduled: 06/19/21 * Follow up:* 1. Follow up after testing. Functional Status Description No Information Available Mental Status Description No Information Available Referrals Refer to Reason for Referral Status Appt Date Nona Berry F.N.P. SNORING Scheduled 05/20/2021 [facility]-Pulmonary [address] [place], [place] [address] [phone]
--- OUTSIDE RECORDS SUMMARY | 2021-05-25 12:06 | CCD ---
Author Author [facility] Organization [facility] Address Unknown Phone Unavailable Care Team Providers Care Steward/Stewardess Deck Name Role Phone Adriana Hightower Unavailable PROBLEMS Type Condition ICD9-CM Code YEM32-VC Code Onset Dates Condition S tatus W/U Status Risk SNOMED Code Notes Problem Seborrheic dermatitis L21.9 Active confirmed 69588599 Problem Actinic keratoses L57.0 Active confirmed 40 8802981 Problem Xerosis cutis L85.3 Active confirmed 246167 00 Problem Seborrheic keratoses L82.1 Active confirmed 346255685 Problem Essential (primary) hypertension I10 Active conf irmed 27909063 Problem Essential tremor G25.0 Active confirmed 609 512960 Problem Mixed hyperlipidemia E78.2 Active confirmed 419153263 Problem Right hip pain M25.551 Active confirmed 3169 86965437876 Problem Primary osteoarthritis, unspecified site M19.91 Active confirmed 552188005 Problem Frequent falls R29.6 Active confirmed 03057 2001 Problem Lentigines L81.4 Active confirmed 155267370 Problem Vitamin D deficiency E55.9 Active confirmed 37032751 Problem Elevated fasting glucose R73.01 Active confirmed 21935345 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 Active confirmed 977647 04 Problem Body mass index (BMI) of 40.1 to 44.9 in adult Z68 .41 Active confirmed 479609123 ALLERGIES No Known Allergies ENCOUNTERS from 1950 to 2021-05-03 Encounter Location Date Provider Diagnosis [address] [phone] [place] [address] Apr, Adriana Hightower IMMUNIZATIONS Vaccine Route Administration [...] Education Language: Question Answer Notes Languages spoken: Uzbek Lutheran: Question Answer Notes Lutheran 21 Holiness Sexual Hx: Question Answer Notes Had sex [...] Notes Start Da te End Date Status Zithromax 250 MG 2 tablet on the first day, then 1 tablet daily for 4 days Orally Once a day for 5 day(s) Apr, A ctive Topamax 25 MG 1 tablet Orally Once a day Active Ketoconazole 2 % 1 application to affected ar ea Externally BID to face and scalp areas with gritty rash for 30 day(s) Active Propranolol HCl 20 MG 1 tablet Oral Twice a day for 90 day(s) Active Vitamin B-6 100 MG 1 tablet Orally Once a day for 30 day(s) Active Atorvastatin Calcium 40 MG 1 tablet Orally Once a day for 90 Active Losartan Potassium 100 MG TAKE 1 TABLET BY MOUTH EVERY DAY for 90 Active Mometasone Furoate 0.1 % 1 application Externally Twi ce a day for five days once monthly as needed for 30 days Dec, Ac tive Vitamin B-1 100 MG 1 tablet Orally Once a day for 30 day(s) Active Multi Vitamin Daily _ 2 gummies Orally Once a day Active Aleve 220 MG 1 tablet with food or milk as needed Orally Twice a day Active Cephalexin 500 MG 1 tablet Orally Four times a day for 10 days Apr, Active Vitamin D3 50 MCG (1999 UT) 1 capsule Orally Once a day for 30 day(s) Active Vitamin B-12 1000 MCG 1 tablet Orally Once a day Active CeleBREX 200 MG 1 capsule with food Orally Once a day for 30 days Active Propranolol HCl ER 60 MG 1 capsule Orally twice daily Active Sulfacetamide-Sulfur Wash 10-5 wash topical Wash face and chest daily as instructed for 30 days Dec, Active Chromium 1 MG 1 capsule Orally Twice a day Active Aspirin 81 81 MG [...] 1/2 TABLETS BY MOUTH THREE TIMES DAILY 90 Active traMADol HCl 50 MG 1 tablet [id number] tid prn right hip pain mdd3 for 30 days last fill 03/31/21 due Sunday do not fill early please Apr, Active Torsemide 10 MG 1 tablet Orally Once a day for 90 day(s) Active PROCEDURES No Information RESULTS No Results REASON FOR VISIT Now I need a [facility]! MEDICAL (GENERAL) HISTORY Type Description Date Medical [...] 2021 traMADol HCl 50 MG 1 tablet [id number] tid prn right hip pain mdd3 for 30 days Apr, Losartan Potassium 100 MG TAKE 1 TABLET BY MOUTH EVERY DAY for 9 0 Zithromax 250 MG 2 tablet on the first day, then 1 tablet daily for 4 days Orally Once a day for 5 day(s) Apr, Next Appt Details Provider Name:Adriana Hightower, 10:30:00 AM, [address] [facility], , [place], [address], Insurance Providers Payer Name Payer Address Payer Phone Insured Name Patient Relati onship to Insured Coverage Start Date Coverage End Date MEDICARE BLUE PPO [id number] [address] VALERIANO CEDENO self
--- OUTSIDE RECORDS SUMMARY | 2021-05-25 12:06 | CCD ---
Author Author [facility] Organization [facility] Address Unknown Phone Unavailable Care Team Providers Care Gypsum Calciner Name Role Phone Adriana Hightower Unavailable PROBLEMS Type Condition ICD9-CM Code KAH10-CI Code Onset Dates Condition S tatus W/U Status Risk SNOMED Code Notes Problem Seborrheic dermatitis L21.9 Active confirmed 22505061 Problem Actinic keratoses L57.0 Active confirmed 40 8564093 Problem Xerosis cutis L85.3 Active confirmed 987767 00 Problem Seborrheic keratoses L82.1 Active confirmed 928670110 Problem Essential (primary) hypertension I10 Active conf irmed 48615779 Problem Essential tremor G25.0 Active confirmed 609 549147 Problem Mixed hyperlipidemia E78.2 Active confirmed 095531197 Problem Right hip pain M25.551 Active confirmed 3169 37689636282 Problem Primary osteoarthritis, unspecified site M19.91 Active confirmed 650038772 Problem Frequent falls R29.6 Active confirmed 32394 2001 Problem Lentigines L81.4 Active confirmed 532284748 Problem Vitamin D deficiency E55.9 Active confirmed 42703144 Problem Elevated fasting glucose R73.01 Active confirmed 15739441 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 Active confirmed 094787 04 Problem Body mass index (BMI) of 40.1 to 44.9 in adult Z68 .41 Active confirmed 414470137 ALLERGIES No Known Allergies ENCOUNTERS from 1950 to 2021-05-05 Encounter Location Date Provider Diagnosis [facility] [address] [facility] [phone] [place] [address] Apr, Adriana Hihgtower Synovial cyst of elbow M71.3 29 ; Right hip pain M25.551 ; Essential tremor G25.0 and Frequent falls R29.6 IMMUNIZATIONS Vaccine Route Administration Date Status COVID-19 [...] Education Language: Question Answer Notes Languages spoken: Samoan Restorationism: Question Answer Notes Restorationism 21 Amish Sexual Hx: Question Answer Notes Had sex [...] smoked? > 10 years REASON FOR REFERRAL from 1950 to 2021-05-05 Reason please eval and treat 71 yr old male with essential tremor and frequrdnt falls. Diagnosis 1 Essential tremor (G25.0) Diagnosis 2 Frequent falls (R29.6) Referral Organization [facility] Referring Provider First Name Adriana Referring Provider Last Name Campbell Referring Provider Specialty Family Medicine Referred Provider AgapitoPhysical therapy Referred Provider Specialty Physical Therapist Referral Priority Routine VITAL SIGNS Weight 285.6 lbs Apr, Weight-kg 129.55 kg Apr, Height 70 in Apr, BMI 40.97 kg/m2 Apr, Heart Rate 74 /min Apr, Respiratory Rate 20 /min Apr, Temperature 98.3 degrees Fahrenheit Apr, Oximetry 95 Apr, Blood pressure systolic 126 mm Hg Apr, Blood pressure diastolic 68 mm Hg Apr, MEDICATIONS Medication SIG (Take, Route, Frequency, Duration) [...] Active traMADol HCl 50 MG 1 tablet [id number] tid prn right hip pain mdd3 for 30 days last fill 03/31/21 due Sunday do not fill early please Apr, Active Torsemide 10 MG 1 tablet Orally Once a day for 90 day(s) Active PROCEDURES No Information RESULTS No Results REASON FOR VISIT Cyst MEDICAL (GENERAL) HISTORY Type Description Date Medical [...] No Information FUNCTIONAL STATUS No Information ASSESSMENTS Encounter Date Diagnosis Assessment Notes Treatment Notes Treatm ent Clinical Notes Apr, Synovial cyst of elbow (ICD-10 - M71.329) Discussed treatment with patient, will treat with antibiotics, strongly advised patient not to poke a hole and drain fluid out of cyst. Discussed it will take at least 6 weeks to resolve Apr, Right hip pain (ICD-10 - M25.551) Tramadol has been working, has been following with orthopedics, [facility] I stop reviewed, last filled 03/31/2021, [facility] I stop [id number] Apr, Essential tremor (ICD-10 - G25.0) Requesting referral to physical therapy for essential tremor and frequent falls Apr, Frequent falls (ICD-10 - R29.6) PLAN OF TREATMENT Medication Medication Name Sig Start Date Stop Date Cephalexin 500 MG 1 tablet Orally Four times a day for 10 days 1 Apr, traMADol HCl 50 MG 1 tablet [id number] tid prn right hip pain mdd3 for 30 days Apr, Losartan Potassium 100 MG TAKE 1 TABLET BY MOUTH EVERY DAY for 9 0 Zithromax 250 MG 2 tablet on the first day, then 1 tablet daily for 4 days Orally Once a day for 5 day(s) Apr, Treatment Notes Assessment Notes Clinical Notes Synovial cyst of elbow Discussed treatme nt with patient, will treat with antibiotics, strongly advised patient not to poke a hole and drain fluid out of cyst. Discussed it will take at least 6 weeks to resolve Right hip pain Tramadol has been wo rking, has been following with orthopedics, [facility] I stop reviewed, last filled 03/31/2021, [facility] I stop [id number] Essential tremor Requesting referral to physical therapy for essential tremor and frequent falls Referrals Referral Date Details please eval and treat 71 yr old male with essential tremor and frequrdnt falls., Physical therapy Agapito Phillips Appt Details July 2021 as scheduled Reason: Provider Name:Adriana Hightower, 10:30:00 AM, [address] [facility], , [place], [address], Insurance Providers Payer Name Payer Address Payer Phone Insured Name Patient Relati onship to Insured Coverage Start Date Coverage End Date MEDICARE BLUE PPO [address] [facility] BLUE [address]OSS [address] [facility] [id number] VALERIANO CEDENO
--- OUTSIDE RECORDS SUMMARY | 2021-05-25 12:06 | CCD | Continuity of Care Document ---
Author Nas Brown N.P. Organization Unknown Address [address] [place] [address] Phone [phone] Care Team Providers Care Blast Furnace Keeper Name Role Phone AUTM Unavailable dAriana Hightower R.N. AUTM [phone] AUTM Unavailable Problems Description No Information Available [...] lb BMI (Body Mass Index) 37.9 kg/m2 [place] Body Weight 172 lb Neck Circumference in inches 19 [place] Score 12 Weight 123.379 kg BSA (Body Surface Area) 2.40 m2 Results Description No Information Available Procedures Description No Information Available Medical Devices Description No Information Available Encounters Description No Information Available Assessments Date Code Description Provider 05/20/2021 R06.83 Snoring Nona Berry N .PLeno 05/20/2021 R40.0 Somnolence Nona Berry N .P. Plan of Treatment Future Appointment(s):* 06/19/2021 7:45 pm - [facility] at [facility]monary/Thoracic 05/20/2021 - Nona Berry NNatty* R06.83 Snoring * R40.0 Somnolence * * New Orders:* Sleep Nocturnal Diagnostic Sleep Study, Ordered: 05/20/21 * Follow up:* 1. Follow up after testing. Functional Status Description No Information Available Mental Status Description No Information Available Referrals Refer to Reason for Referral Status Appt Date Nona Berry F.NNatty SNORING Scheduled 05/20/2021 [facility]-Pulmonary [address] [place], [place] [address] [phone]
--- OUTSIDE RECORDS SUMMARY | 2021-05-25 12:06 | CCD ---
Author Author [facility] Organization [facility] Address Unknown Phone Unavailable Care Team Providers Care Segmental Paver Installer Name Role Phone Campbell Adriana Unavailable PROBLEMS Type Condition ICD9-CM Code ETR39-CZ Code Onset Dates Condition S tatus W/U Status Risk SNOMED Code Notes Problem Seborrheic dermatitis L21.9 Active confirmed 17456047 Problem Actinic keratoses L57.0 Active confirmed 40 9159817 Problem Xerosis cutis L85.3 Active confirmed 140157 00 Problem Seborrheic keratoses L82.1 Active confirmed 919563279 Problem Essential (primary) hypertension I10 Active conf irmed 11816123 Problem Essential tremor G25.0 Active confirmed 609 142126 Problem Mixed hyperlipidemia E78.2 Active confirmed 456241081 Problem Right hip pain M25.551 Active confirmed 3169 96266432012 Problem Primary osteoarthritis, unspecified site M19.91 Active confirmed 840189411 Problem Frequent falls R29.6 Active confirmed 63898 2001 Problem Lentigines L81.4 Active confirmed 088489265 Problem Vitamin D deficiency E55.9 Active confirmed 83297812 Problem Elevated fasting glucose R73.01 Active confirmed 23309581 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 Active confirmed 362851 04 Problem Body mass index (BMI) of 40.1 to 44.9 in adult Z68 .41 Active confirmed 057693027 ALLERGIES No Known Allergies ENCOUNTERS from 1950 to 2021-05-12 Encounter Location Date Provider Diagnosis [address] [phone] [place] [address] May, Adriana Hightower Essential tremor G25.0 ; Mix ed hyperlipidemia E78.2 and Essential (primary) hypertension I10 IMMUNIZATIONS Vaccine Route Administration Date Status COVID-19 [...] Education Language: Question Answer Notes Languages spoken: Libyan Scientologist: Question Answer Notes Scientologist 21 Hindu Sexual Hx: Question Answer Notes Had sex [...] cream applied for 30 days 2018 Active Vitamin B-12 1000 MCG 1 [...] Active traMADol HCl 50 MG 1 tablet [id number] tid prn right hip pain mdd3 for 30 days last fill 03/31/21 due Sunday do not fill early please Apr, Active PROCEDURES No Information RESULTS No Results REASON FOR VISIT refill-all MEDICAL (GENERAL) HISTORY Type Description Date Medical [...] Notes Treatment Notes Treatm ent Clinical Notes May, Essential tremor (ICD-10 - G25.0) May, Mixed hyperlipidemia (ICD-10 - E78.2) May, Essential (primary) hypertension (ICD-10 - I10) PLAN OF TREATMENT Medication Medication Name Sig Start Date Stop Date Cephalexin 500 MG 1 tablet Orally Four times a day for 10 days 1 9 Apr, 2021 traMADol HCl 50 MG 1 tablet [id number] tid prn right hip pain mdd3 for [...] Details Provider Name:Adriana Hightower, 10:30:00 AM, [address] [facility], , [place], [address], Insurance Providers Payer Name Payer Address Payer Phone Insured Name Patient Relati onship to Insured Coverage Start Date Coverage End Date MEDICARE BLUE PPO [address] [facility] [address] [place] [address] [id number] VALERIANO CEDENO
--- OUTSIDE RECORDS SUMMARY | 2021-05-25 12:07 | CCD ---
Author Author [facility] Organization [facility] Address Unknown Phone Unavailable Care Team Providers Care Mechanical Design Engineer Name Role Phone Campbell, Adriana Unavailable PROBLEMS Type Condition ICD9-CM Code [id number] Code Onset Dates Condition S tatus W/U Status Risk SNOMED Code Notes Problem Seborrheic dermatitis L21.9 Active confirmed 44204213 Problem Actinic keratoses L57.0 Active confirmed 40 5196443 Problem Xerosis cutis L85.3 Active confirmed 060082 00 Problem Seborrheic keratoses L82.1 Active confirmed 999844269 Problem Essential (primary) hypertension I10 Active conf irmed 48071875 Problem Essential tremor G25.0 Active confirmed 609 711547 Problem Mixed hyperlipidemia E78.2 Active confirmed 008775696 Problem Right hip pain M25.551 Active confirmed 3169 14642210086 Problem Primary osteoarthritis, unspecified site M19.91 Active confirmed 649315603 Problem Frequent falls R29.6 Active confirmed 54411 2001 Problem Lentigines L81.4 Active confirmed 951114784 Problem Vitamin D deficiency E55.9 Active confirmed 12556107 Problem Elevated fasting glucose R73.01 Active confirmed 00678177 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 Active confirmed 701456 04 Problem Body mass index (BMI) of 40.1 to 44.9 in adult Z68 .41 Active confirmed 300309714 ALLERGIES No Known Allergies ENCOUNTERS from 1950 to 2021-03-30 Encounter Location Date Provider Diagnosis [address] [phone] [place] [address] Mar, Adriana Servage Right hip pain M25.551 IMMUNIZATIONS Vaccine Route Administration Date Status COVID-19 [...] Education Language: Question Answer Notes Languages spoken: Japanese Alevism: Question Answer Notes Alevism 21 Oriental Orthodox Sexual Hx: Question Answer Notes Had sex [...] Notes Start Da te End Date Status Chromium 1 MG 1 capsule Orally Twice a day Active Sulfacetamide-Sulfur Wash 10-5 wash topical Wash face and chest daily as instructed for 30 days Dec, Active Metoprolol Succinate ER 100 MG 1 tablet Orally Once a day for 90 day( s) Active DULoxetine HCl 20 MG 1 capsule Orally Daily for 90 day(s) Dec, Active Vitamin B-1 100 MG 1 tablet Orally Once a day for 30 day(s) Active Ketoconazole 2 % 1 application to affected ar ea Externally BID to face and scalp areas with gritty rash for 30 day(s) Active Torsemide 10 MG 1 tablet Orally Once a day for 90 day(s) Active Aspirin 81 81 MG 1 tablet Orally Once a day Active Losartan Potassium 100 MG 1 tablet Orally Once a day for 90 Active Primidone 250 MG TAKE 1 AND 1/2 TABLETS BY MOUTH THREE TIMES DAILY Active Vitamin D3 50 MCG (1999) 1 capsule Orally Once a day for 30 day(s) Active CeleBREX 200 MG 1 capsule with food Orally Once a day for 30 days Active Atorvastatin Calcium 40 MG 1 tablet Orally Once a day for 90 Active Hydrocortisone 2.5 % 1 application to affected ar ea Externally BID to areas on face to ears with rash after keto cream applied for 30 days 12 2018 Active Vitamin B-6 100 MG 1 tablet Orally Once a day for 30 day(s) Active Propranolol HCl ER 60 MG 1 capsule Orally twice daily Active Aleve 220 MG 1 tablet with food or milk as needed Orally Twice a day Active Vitamin B-12 1000 MCG 1 tablet Orally Once a day Active Mometasone Furoate 0.1 % 1 application Externally Twi ce a day for five days once monthly as needed for 30 days Dec, Ac tive Multi Vitamin Daily _ 2 gummies Orally Once a day Active traMADol HCl 50 MG 1 tablet orally [id number] ti d prn right hip pain mdd3 for 30 days Mar, Active Propranolol HCl 20 MG 1 tablet Oral Twice a day for 90 day(s) Active Atorvastatin Calcium 40 MG 1 tablet Orally Once a day for 90 day(s) Active Topamax 25 MG 1 tablet Orally Once a day Active PROCEDURES No Information RESULTS No Results REASON FOR VISIT refill MEDICAL (GENERAL) HISTORY Type Description Date Medical [...] Notes Treatment Notes Treatm ent Clinical Notes Mar, Right hip pain (ICD-10 - M25.551) PLAN OF TREATMENT Medication Medication Name Sig Start Date Stop Date CeleBREX 200 MG 1 capsule with food Orally Once a day for 30 day s Propranolol HCl 20 MG 1 tablet Oral Twice a day for 90 day(s) traMADol HCl 50 MG 1 tablet orally [id number] ti d prn right hip pain mdd3 for 30 days Mar, Primidone 250 MG TAKE 1 AND 1/2 TABLETS BY MOUTH THREE TIMES RUSS LY for 90 DULoxetine HCl 20 MG 1 capsule Orally Daily for 90 day(s) Dec Next Appt Details Provider Name:Adriana Hightower, 10:30:00 AM, [address] [facility], , [place], [address], Insurance Providers Payer Name Payer Address Payer Phone Insured Name Patient Relati onship to Insured Coverage Start Date Coverage End Date MEDICARE BLUE O [address] [address] VALERIANO CEDENO self
--- OUTSIDE RECORDS SUMMARY | 2021-05-25 12:07 | CCD | Continuity of Care Document ---
Author Author [facility] Organization Unknown Address [address], [address] [place] [address] Phone [phone] Care Team Providers Care Lithopress Operator Name Role Phone Adriana Hightower MARIELA AUTM [phone] Problems Description No Information Available Social History Type Date Description Comments Sex Unknown Tobacco Use Start: Unknown End: Unknown Former Cigarette Smo ker Quit - 2002 ETOH Use Social Drinker Sun Exposure minimum amount of sun exposure Sun Exposure Has never used tanning bed Sun Exposure Has never experienced blistering from sunburns Sun Exposure Does not use sunscreen Allergies, Adverse Reactions, Alerts Description No Information Available Medications Active Medications SIG Qnty Indications Ordering Provide r Date Ketoconazole 2% Cream apply to face and ears sparingly twice a day 60gm L21.8 LUIS A Sebastian 12/07/2020 Ketoconazole 2% Shampoo shampoo daily until scalp is clear, then 2-3 times per week for maintenance. 120ml L21.8 NINA Sebastian 11/17/2020 Clobetasol Propionate 0.05% Cream apply to affected area sparingly twice a day x 2 weeks and as needed for flares. 60gm R21 NNIA Sebastian 11/17/2020 Celebrex Unknown Aspirin 81 Unknown Glucosamine Chondroitin 1500 Complex Unknown [place] Unknown Vitamin D-3 Unknown Chromium Unknown Vitamin B-6 Unknown Vitamin B 12 Unknown Vitamin B-1 Unknown Multivitamin Unknown Losartan Potassium Unknown Tramadol HCL Unknown Topiramate Unknown Inderal LA Unknown Torsemide Unknown Atorvastatin Calcium Unknown Primidone Unknown History Medications Fluticasone Propionate 0.05% Cream apply to face, scalp, and chest sparingly twice a day x 3-5 days, then prn 30gm L21.8 Arturo Dhillon 01/13/2021 - 03/23/2021 Immunizations Description No Information Available Vital Signs Date Vital Result Comment 03/22/2021 2:36pm BP Systolic 152 mmHg BP Diastolic 69 mmHg Weight 286.00 lb Height 71 inches 5'11" BMI (Body Mass Index) 39.9 kg/m2 01/13/2021 11:32am BP Systolic 122 mmHg BP Diastolic 64 mmHg Weight 290.00 lb Respiratory Rate 17 /min Results Test Acquired Date Facility Test Result H/L Range Note Laboratory test finding 03/22/2021 [employer] [facility] Pathology <pending> L Back (1 Of 2) 11/17/2020 [employer] [facility] LC Icd9 Code ICD9 Code: L57.0 1, 2 PDFReport SEE IMAGE 1 A) LN2 to any remaining, merritt t 12/07/20 B) LN2 to any remaining, appt 12/07/20 2 ICD9 Code: L57.0 Protocol: shave Clinical Text: AK VS SCC Final Diagnosis: ACTINIC KERATOSIS. Gross Text: The specimen grossly was irregular in shape and measured 5 x 2 mm. on the surface and 1 mm. deep. All of the tissue was submitted for processing. Microscopic Description: The epidermis shows partial thickness keratinocytic atypia between adnexa. There is a background of solar elastosis. CPT: 88946*2 Procedures Date Code Description Status 03/22/2021 70372 Office/Outpatient Established Mo d MDM 30-39 Min Completed 03/22/2021 58095 Shave Biopsy Of Skin, Single Les ion Completed 01/13/2021 11282 Office/Outpatient Established Mo d MDM 30-39 Min Completed 12/07/2020 69918 Office/Outpatient Established Mo d MDM 30-39 Min Completed 12/07/2020 24642 Destruction Of Lesion First Comp leted 11/17/2020 63712 Office/Outpatient New Moderate M DM 45-59 Minutes Completed 11/17/2020 42127 Each Separate/Additional Lesion Completed 11/17/2020 09719 Shave Biopsy Of Skin, Single Les ion Completed Medical Devices Description No Information Available Encounters Type Date Location Provider Dx Diagnosis Office Visit 03/22/2021 2:30p Main Office SUSAN Sebastian-C R 21 Rash and other nonspecific skin eruption L21.8 Other seborrheic dermatitis R20.8 Other disturbances of skin s ensation Office Visit 01/13/2021 11:30a Main Office Mirta Cruz'yunier, F.N.P. L57.0 Actinic keratosis L21.8 Other seborrheic dermatitis R20.8 Other disturbances of skin s ensation Office Visit 12/07/2020 9:15a Main Office SUSAN Sebastian-C L 21.8 Other seborrheic dermatitis R20.8 Other disturbances of skin s ensation L57.0 Actinic keratosis R21 Rash and other nonspecific s kin eruption Office Visit 11/17/2020 10:30a Main Office SUSAN Sebastian-C D 48.5 Neoplasm of uncertain behavior of skin L82.1 Other seborrheic keratosis R21 Rash and other nonspecific s kin eruption L85.3 Xerosis cutis R20.8 Other disturbances of skin s ensation L81.4 Other melanin hyperpigmentat ion L21.8 Other seborrheic dermatitis Z12.83 Encounter for screening for malignant neoplasm of skin Assessments Date Code Description Provider 03/22/2021 R21 Rash and other nonspecific skin eruption Janice Ortiz [employer] PROGRAM TEACHER-C 03/22/2021 L21.8 Other seborrheic dermatitis Megan sa Sb Ortiz [employer] PROGRAM TEACHER-C 03/22/2021 R20.8 Other disturbances of skin sensa tion Janice Ortiz [employer] PROGRAM TEACHER-C 01/13/2021 L57.0 Actinic keratosis Janice LUIS A PalaciosP-C 01/13/2021 L57.0 Actinic keratosis Mirta florez, F.N.P. 01/13/2021 L21.8 Other seborrheic dermatitis Megan sa SUSAN Topete-C 01/13/2021 L21.8 Other seborrheic dermatitis Juana Downs, F.N.P. 01/13/2021 R20.8 Other disturbances of skin sensa tion Janice Sb Ortiz, [facility] 01/13/2021 R20.8 Other disturbances of skin sensa tion Mirta Downs, F.N.P. 12/07/2020 L21.8 Other seborrheic dermatitis Megan sa Sb Ortiz, [facility] 12/07/2020 R20.8 Other disturbances of skin sensa tion Janice Sb Ortiz, [facility] 12/07/2020 L57.0 Actinic keratosis Janice Sb barrett, [facility] 12/07/2020 R21 Rash and other nonspecific skin eruption Janice Sb Ortiz, [facility] 11/17/2020 D48.5 Neoplasm of uncertain behavior o f skin Janicesa Sb Ortiz, [facility] 11/17/2020 L82.1 Other seborrheic keratosis Eliss a Sb Ortiz, [facility] 11/17/2020 R21 Rash and other nonspecific skin eruption Janice Sb Joni, [facility] 11/17/2020 L85.3 Xerosis cutis Janice Basurto Kerry basurto, [facility] 11/17/2020 R20.8 Other disturbances of skin sensa tion Janice Sb Ortiz, [facility] 11/17/2020 L81.4 Other melanin hyperpigmentation Janice Ortiz [employer]GRAM TEACHER-C 11/17/2020 L21.8 Other seborrheic dermatitis Megan sa Sb Ortiz, [facility] 11/17/2020 Z12.83 Encounter for screening for true gnant neoplasm of skin NINA Sebastian Plan of Treatment Future Appointment(s):* 12/15/2021 2:45 pm - NINA Sebastian at Main Office 03/22/2021 - NINA Sebastian* R21 Rash and other nonspecific skin eruption* Comments:* Shave biopsy today, chest - AK vs. seborrheic dermatitis vs. nummular dermatitisWound care instructions given.Will call when pathology is available. * L21.8 Other seborrheic dermatitis* Comments:* Improved.Continue to wash with Ivory soap.Continue to apply Eucerin moisturizer.Continue Ketoconazole 2% shampoo daily until clear then decrease to TIW for maintenance. Continue Ketoconazole 2% cream to face and ears twice daily until clear.Call with problems. * R20.8 Other disturbances of skin sensation* Comments:* See above. * Follow up:* November 2021 - Functional Status Description No Information Available Mental Status Description No Information Available Referrals Description No Information Available
--- OUTSIDE RECORDS SUMMARY | 2021-05-25 12:07 | CCD ---
Author Author [facility] Organization [facility] Address Unknown Phone Unavailable Care Team Providers Care Case Management Assistant Name Role Phone Adriana Hightower Unavailable PROBLEMS Type Condition ICD9-CM Code [id number] Code Onset Dates Condition S tatus W/U Status Risk SNOMED Code Notes Problem Seborrheic dermatitis L21.9 Active confirmed 01921351 Problem Actinic keratoses L57.0 Active confirmed 40 4585861 Problem Xerosis cutis L85.3 Active confirmed 229565 00 Problem Seborrheic keratoses L82.1 Active confirmed 677340329 Problem Essential (primary) hypertension I10 Active conf irmed 73172100 Problem Essential tremor G25.0 Active confirmed 609 721888 Problem Mixed hyperlipidemia E78.2 Active confirmed 694129419 Problem Right hip pain M25.551 Active confirmed 3169 03328540597 Problem Primary osteoarthritis, unspecified site M19.91 Active confirmed 500422114 Problem Frequent falls R29.6 Active confirmed 67791 2002 Problem Lentigines L81.4 Active confirmed 489993650 Problem Vitamin D deficiency E55.9 Active confirmed 50608978 Problem Elevated fasting glucose R73.01 Active confirmed 65244459 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 Active confirmed 525454 04 Problem Body mass index (BMI) of 40.1 to 44.9 in adult Z68 .41 Active confirmed 446106056 ALLERGIES No Known Allergies ENCOUNTERS from 1950 to 2021-03-16 Encounter Location Date Provider Diagnosis [address] [phone] [place] [address] Mar, Adriana Hightower Snoring R06.83 IMMUNIZATIONS Vaccine Route Administration Date Status COVID-19 [...] Education Language: Question Answer Notes Languages spoken: Russian Jainism: Question Answer Notes Jainism 21 Restorationism Sexual Hx: Question Answer Notes Had sex [...] years REASON FOR REFERRAL from 1950 to 2021-03-16 Reason please eval and treat for sl eep apnea Diagnosis 1 Snoring (R06.83) Diagnosis 2 Body mass index (BMI) of 40. 1 to 44.9 in adult (Z68.41) Referral Organization [facility] Referring Provider First Name Adriana Referring Provider Last Name Campbell Referring Provider Specialty Family Medicine Referred Provider Gigi Vasquez Referred Provider Specialty Pulmonary Diseases Referral Priority Routine General Notes [place] Witt 03/16/2021 8:22 :43 AM > referral faxed VITAL SIGNS No information MEDICATIONS Medication SIG (Take, Route, Frequency, Duration) Notes Start Da te End Date Status Torsemide 10 MG 1 tablet Orally Once a day for 90 day(s) Active Sulfacetamide-Sulfur Wash 10-5 wash topical Wash face and chest daily as instructed for 30 days Dec, Active Chromium 1 MG 1 capsule Orally Twice a day Active traMADol HCl 50 MG 1 tablet orally 431443048 ti d prn right hip pain mdd3 for 30 days Oct, Active Losartan Potassium 100 MG 1 tablet Orally Once a day for 90 Active Hydrocortisone 2.5 % 1 application to affected ar ea Externally BID to areas on face to ears with rash after keto cream applied for 30 days 2018 Active Vitamin B-1 100 MG 1 tablet Orally Once a day for 30 day(s) Active Vitamin B-6 100 MG 1 tablet Orally Once a day for 30 day(s) Active Multi Vitamin Daily _ 2 gummies Orally Once a day Active Vitamin D3 50 MCG (1999 [place]) 1 capsule Orally Once a day for 30 day(s) Active Aspirin 81 81 MG 1 tablet Orally Once a day Active CeleBREX 200 MG 1 capsule with food Orally Once a day for 30 days Active Mometasone Furoate 0.1 % 1 application Externally Twi ce a day for five days once monthly as needed for 30 days Dec, Ac tive Atorvastatin Calcium 40 MG 1 tablet Orally Once a day for 90 Active Atorvastatin Calcium 40 MG 1 tablet Orally Once a day for 90 day(s) Active Topamax 25 MG 1 tablet Orally Once a day Active Primidone 250 MG 1 1/2 tablets Orally TID Active Ketoconazole 2 % 1 application to affected ar ea Externally BID to face and scalp areas with gritty rash for 30 day(s) Active Propranolol HCl ER 60 MG 1 capsule Orally twice daily Active Aleve 220 MG 1 tablet with food or milk as needed Orally Twice a day Active DULoxetine HCl 20 MG 1 capsule Orally Daily for 90 day(s) Dec, Active Propranolol HCl 20 MG 1 tablet Oral Twice a day for 90 day(s) Active Vitamin B-12 1000 MCG 1 tablet Orally Once a day Active Metoprolol Succinate ER 100 MG 1 tablet Orally Once a day for 90 day( s) Active PROCEDURES No Information RESULTS No Results REASON FOR VISIT For Adriana Hightower MEDICAL (GENERAL) HISTORY Type Description Date Medical [...] Treatment Notes Treatm ent Clinical Notes Mar, Snoring (ICD-10 - R06.83) PLAN OF TREATMENT Medication Medication Name Sig Start Date Stop Date CeleBREX 200 MG 1 capsule with food Orally Once a day for 30 day s Propranolol HCl 20 MG 1 tablet Oral Twice a day for 90 day(s) traMADol HCl 50 MG 1 tablet orally 112707000 ti d prn right hip pain mdd3 for 30 days Oct, DULoxetine HCl 20 MG 1 capsule Orally Daily for 90 day(s) Dec Referrals Referral Date Details please eval and treat for sl eep apnea, Gigi Vasquez Next Appt Details Provider Name:Adriana Hightower, 10:30:00 AM, [address] [facility], , [place], [address], Insurance Providers Payer Name Payer Address Payer Phone Insured Name Patient Relati onship to Insured Coverage Start Date Coverage End Date MEDICARE BLUE PPO [address] [address] VALERIANO CEDENO self
--- OUTSIDE RECORDS SUMMARY | 2021-05-25 12:07 | CCD ---
Author Author [facility] Organization [facility] Address Unknown Phone Unavailable Care Team Providers Care Receptionist/Telephone Operator Name Role Phone Adriana Hightower Unavailable PROBLEMS Type Condition ICD9-CM Code [id number] Code Onset Dates Condition S tatus W/U Status Risk SNOMED Code Notes Problem Seborrheic dermatitis L21.9 Active confirmed 35444601 Problem Actinic keratoses L57.0 Active confirmed 40 4213290 Problem Xerosis cutis L85.3 Active confirmed 296789 00 Problem Seborrheic keratoses L82.1 Active confirmed 721812623 Problem Essential (primary) hypertension I10 Active conf irmed 12170168 Problem Essential tremor G25.0 Active confirmed 609 031383 Problem Mixed hyperlipidemia E78.2 Active confirmed 571722025 Problem Right hip pain M25.551 Active confirmed 3169 70116242496 Problem Primary osteoarthritis, unspecified site M19.91 Active confirmed 204583765 Problem Frequent falls R29.6 Active confirmed 09158 2001 Problem Lentigines L81.4 Active confirmed 237002032 Problem Vitamin D deficiency E55.9 Active confirmed 40468449 Problem Elevated fasting glucose R73.01 Active confirmed 49217050 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 Active confirmed 040476 04 Problem Body mass index (BMI) of 40.1 to 44.9 in adult Z68 .41 Active confirmed 416917147 ALLERGIES No Known Allergies ENCOUNTERS from 1950 to 2021-04-23 Encounter Location Date Provider Diagnosis [address] [phone] [place] [address] 15 Apr, 2021 Adriana Hightower IMMUNIZATIONS Vaccine Route [...] Education Language: Question Answer Notes Languages spoken: Bengali Quaker: Question Answer Notes Quaker 21 Yazidi Sexual Hx: Question Answer Notes Had sex [...] keto cream applied for 30 days 12 J ul, 2019 Active Vitamin B-6 100 MG 1 tablet [...] traMADol HCl 50 MG 1 tablet orally 665684057 ti d prn right hip pain mdd3 for 30 days Mar, Active Propranolol HCl 20 MG 1 tablet Oral Twice a day for 90 day(s) Active Atorvastatin Calcium 40 MG 1 tablet Orally Once a day for 90 day(s) Active Topamax 25 MG 1 tablet Orally Once a day Active PROCEDURES No Information RESULTS No Results REASON FOR VISIT cyst MEDICAL (GENERAL) HISTORY Type Description Date Medical [...] traMADol HCl 50 MG 1 tablet orally 511856956 ti d prn right hip pain mdd3 for 30 days Mar, Primidone 250 MG TAKE 1 AND 1/2 TABLETS BY MOUTH THREE TIMES RUSS LY for 90 DULoxetine HCl 20 MG 1 capsule Orally Daily for 90 day(s) Dec Next Appt Details Provider Name:Adriana Hightower, 2020-10- 07:15:00 AM, [address] [facility], , [place], [address], Provider Name:Adriana Tray Forresterranda, 10:30:00 AM, [address] [facility], , [place], [address], Insurance Providers Payer Name Payer Address Payer Phone Insured Name Patient Relati onship to Insured Coverage Start Date Coverage End Date MEDICARE BLUE O [address] [address] VALERIANO CEDENO
--- OUTSIDE RECORDS SUMMARY | 2021-05-25 12:07 | CCD ---
Author Author [facility] Organization [facility] Address Unknown Phone Unavailable Care Team Providers Care Vacuum System Tester Name Role Phone Adriana Hightower Unavailable PROBLEMS Type Condition ICD9-CM Code [id number] Code Onset Dates Condition S tatus W/U Status Risk SNOMED Code Notes Problem Seborrheic dermatitis L21.9 Active confirmed 01688590 Problem Actinic keratoses L57.0 Active confirmed 40 3382178 Problem Xerosis cutis L85.3 Active confirmed 110686 00 Problem Seborrheic keratoses L82.1 Active confirmed 770265803 Problem Essential (primary) hypertension I10 Active conf irmed 75125492 Problem Essential tremor G25.0 Active confirmed 609 400778 Problem Mixed hyperlipidemia E78.2 Active confirmed 634926394 Problem Right hip pain M25.551 Active confirmed 3169 [id number] Problem Primary osteoarthritis, unspecified site M19.91 Active confirmed 033813002 Problem Frequent falls R29.6 Active confirmed 52017 2001 Problem Lentigines L81.4 Active confirmed 278294965 Problem Vitamin D deficiency E55.9 Active confirmed 24674125 Problem Elevated fasting glucose R73.01 Active confirmed 86588411 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 Active confirmed 767739 04 Problem Body mass index (BMI) of 40.1 to 44.9 in adult Z68 .41 Active confirmed 246748157 ALLERGIES No Known Allergies ENCOUNTERS from 1950 to 2021 Encounter Location Date Provider Diagnosis [address] [phone] [place] [address] 16 Mar, 2021 Adriana Hightower Essential tremor G25.0 IMMUNIZATIONS Vaccine Route Administration Date Status COVID-19 [...] Education Language: Question Answer Notes Languages spoken: Lithuanian Samaritan: Question Answer Notes Samaritan 21 Anabaptism Sexual Hx: Question Answer Notes Had sex [...] a day for 90 day( s) Active traMADol HCl 50 MG 1 tablet orally [id number] ti d prn right hip pain mdd3 for 30 days Oct, Active Vitamin B-1 100 MG 1 tablet Orally Once a day for 30 day(s) Active Hydrocortisone 2.5 % 1 application to affected ar ea Externally BID to areas on face to ears with rash after keto cream applied for 30 days 2018 Active Torsemide 10 MG 1 tablet Orally Once a day for 90 day(s) Active Vitamin B-6 100 MG 1 tablet Orally Once a day for 30 day(s) Active Losartan Potassium 100 MG 1 tablet Orally Once a day for 90 Active Vitamin D3 50 MCG (1999 UT) [...] Once a day for 90 day(s) Active Propranolol HCl ER 60 MG 1 capsule Orally twice daily Active Aleve 220 MG 1 tablet with food or milk as needed Orally Twice a day Active Ketoconazole 2 % 1 application to affected ar ea Externally BID to face and scalp areas with gritty rash for 30 day(s) Active Primidone 250 MG 1 1/2 tablets Orally TID for 90 day(s) Active Multi Vitamin Daily _ 2 gummies Orally Once a day Active DULoxetine HCl 20 MG 1 capsule Orally Daily for 90 day(s) Dec, Active Propranolol HCl 20 MG 1 tablet Oral Twice a day for 90 day(s) Active Vitamin B-12 1000 MCG 1 tablet Orally Once a day Active Topamax 25 MG 1 [...] Treatment Notes Treatm ent Clinical Notes Mar, Essential tremor (ICD-10 - G25.0) PLAN OF TREATMENT Medication Medication Name Sig Start Date Stop Date CeleBREX 200 MG 1 capsule with food Orally Once a day for 30 day s Propranolol HCl 20 MG 1 tablet Oral Twice a day for 90 day(s) DULoxetine HCl 20 MG 1 capsule Orally Daily for 90 day(s) Dec Primidone 250 MG 1 1/2 tablets Orally TID for 90 day(s) traMADol HCl 50 MG 1 tablet orally [id number] ti d prn right hip pain mdd3 for 30 days Oct, Next Appt Details Provider Name:Adriana Hightower, 10:30:00 AM, [address] [facility], , [place], [address], Insurance Providers Payer Name Payer Address Payer Phone Insured Name Patient Relati onship to Insured Coverage Start Date Coverage End Date MEDICARE BLUE PPO [address] [id number] VALERIANO CEDENO
--- OUTSIDE RECORDS SUMMARY | 2021-05-25 12:07 | CCD ---
Author Author [facility] Organization [facility] Address Unknown Phone Unavailable Care Team Providers Care Finishing Supervisor Plastic Sheets Name Role Phone Adriana Hightower Unavailable PROBLEMS Type Condition ICD9-CM Code [id number] Code Onset Dates Condition S tatus W/U Status Risk SNOMED Code Notes Problem Seborrheic dermatitis L21.9 Active confirmed 87219398 Problem Actinic keratoses L57.0 Active confirmed 40 2811087 Problem Xerosis cutis L85.3 Active confirmed 747193 00 Problem Seborrheic keratoses L82.1 Active confirmed 203908588 Problem Essential (primary) hypertension I10 Active conf irmed 03400467 Problem Essential tremor G25.0 Active confirmed 609 275464 Problem Mixed hyperlipidemia E78.2 Active confirmed 284956413 Problem Right hip pain M25.551 Active confirmed 3169 [id number] Problem Primary osteoarthritis, unspecified site M19.91 Active confirmed 632508903 Problem Frequent falls R29.6 Active confirmed 26570 2002 Problem Lentigines L81.4 Active confirmed 291587208 Problem Vitamin D deficiency E55.9 Active confirmed 00238468 Problem Elevated fasting glucose R73.01 Active confirmed 27196408 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.] Information RESULTS No Results REASON FOR VISIT worried about sleep apnea MEDICAL (GENERAL) HISTORY Type Description Date Medical [...] traMADol HCl 50 MG 1 tablet orally [id number] ti d prn right hip pain mdd3 for 30 days Oct, DULoxetine HCl 20 MG 1 capsule Orally Daily for 90 day(s) Dec Next Appt Details Provider Name:Adriana Hightower, 10:30:00 AM, [address] [facility], , [place], [address], Insurance Providers Payer Name Payer Address Payer Phone Insured Name Patient Relati onship to Insured Coverage Start Date Coverage End Date MEDICARE BLUE O [address] [id number] VALERIANO CEDENO self
--- OUTSIDE RECORDS SUMMARY | 2021-05-25 12:07 | CCD ---
Author Author [facility] Organization [facility] Address Unknown Phone Unavailable Care Team Providers Care Department Mgr Name Role Phone SYSTEM IN, NOT IN PROVIDER Unavailable Unavailable LAROCKGabi NP Unavailable Unavailable LAROCKGabi NP Unavailable Unavailable LAROCKGabi NP Unavailable Unavailable LAROCKGabi NP Unavailable Unavailable LAROCK, Gabi WILSON NP Unavailable Unavailable LAROCKGabi NP Unavailable Unavailable LAROCK, Gabi WILSON NP Unavailable Unavailable LAROCKGabi NP Unavailable Unavailable LAROCKGabi NP Unavailable Unavailable LAROCK, Gabi WILSON NP Unavailable Unavailable LAROCK, Gabi WILSON NP Unavailable Unavailable LAROCK, Gabi WILSON NP Unavailable Unavailable LAROCK, Gabi WILSON NP Unavailable Unavailable LAROCKGabi NP Unavailable Unavailable LAROCK, Gabi WILSON NP Unavailable Unavailable LAROCKGabi NP Unavailable Unavailable LAROCKGabi NP Unavailable Unavailable LAROCK, Gabi WILSON NP Unavailable Unavailable LAROCK, Gabi WILSON NP Unavailable Unavailable LAROCK, Gabi WILSON NP Unavailable Unavailable LAROCK, Gabi WILSON NP Unavailable Unavailable LAROCKGabi NP Unavailable Unavailable Victorina Mark MD Unavailable Unavailable Victorina Mark MD Unavailable Unavailable Victorina Mark MD Unavailable Unavailable Victorina Mark MD Unavailable Unavailable Victorina Mark MD Unavailable Unavailable Victorina Mark MD Unavailable Unavailable Victorina Mark MD Unavailable Unavailable Victorina Mark MD Unavailable Unavailable Victorina Mark MD Unavailable Unavailable JasVictorina MD Unavailable Unavailable JasVictorina MD Unavailable Unavailable ColonaVictorina MD Unavailable Unavailable ColonaVictorina MD Unavailable Unavailable JasVictorina MD Unavailable Unavailable JasVictorina MD Unavailable Unavailable ColonaVictorina MD Unavailable Unavailable JasVictorina MD Unavailable Unavailable JasVictorina MD Unavailable Unavailable JasVictorina MD Unavailable Unavailable JasVictorina MD Unavailable Unavailable ColonaVictorina MD Unavailable Unavailable ColonaVictorina MD Unavailable Unavailable ColonaVictorina MD Unavailable Unavailable ColonaVictorina MD Unavailable Unavailable JasVictorina MD Unavailable Unavailable JasVictorina MD Unavailable Unavailable JasVictorina MD Unavailable Unavailable ColonaVictorina MD Unavailable Unavailable ColonaVictorina MD Unavailable Unavailable JasVictorina MD Unavailable Unavailable JasVictorina MD Unavailable Unavailable JasVictorina MD Unavailable Unavailable JasVictorina MD Unavailable Unavailable JasVictorina MD Unavailable Unavailable ColonaVictorina MD Unavailable Unavailable ColonaVictorina MD Unavailable Unavailable JasVictorina MD Unavailable Unavailable JasVictorina MD Unavailable Unavailable ColonaVictorina MD Unavailable Unavailable ColonaVictorina MD Unavailable Unavailable ColonaVictorina MD Unavailable Unavailable JasVictorina MD Unavailable Unavailable ColonaVictorina MD Unavailable Unavailable JasVictorina MD Unavailable Unavailable JasVictorina khanna MD Unavailable Unavailable JasVictorina MD Unavailable Unavailable ColonaVictorina MD Unavailable Unavailable ColonaVictorina MD Unavailable Unavailable JasVictorina MD Unavailable Unavailable ColonaVictorina MD Unavailable Unavailable JasVictorina MD Unavailable Unavailable JasVictorina khanna MD Unavailable Unavailable ColonaVictorina MD Unavailable Unavailable ColonaVictorina MD Unavailable Unavailable ColonaVictorina MD Unavailable Unavailable JasVictorina MD Unavailable Unavailable ColonaVictorina MD Unavailable Unavailable ColonaVictorina MD Unavailable Unavailable JasVictorina MD Unavailable Unavailable JasVictorina MD Unavailable Unavailable JasVictorina MD Unavailable Unavailable JasVictorina MD Unavailable Unavailable JasVictorina MD Unavailable Unavailable JasVictorina MD Unavailable Unavailable Jas, Victorina Brad MALDONADO Unavailable Unavailable Colona, Victorina Brad MALDONADO Unavailable Unavailable Colona, Victorina Brad MALDONADO Unavailable Unavailable Jas, Victorina Brad MALDONADO Unavailable Unavailable Colona, Victorina Brad MALDONADO Unavailable Unavailable Jas, Victorina Brad MD Unavailable Unavailable Jas, Victorina Brad MALDONADO Unavailable Unavailable Colona, Victorina Brad MALDONADO Unavailable Unavailable Colona, Victorina Brad MALDONADO Unavailable Unavailable Jas, Victorina Brad MALDONADO Unavailable Unavailable Jas, Victorina Brad MALDONADO Unavailable Unavailable Jas, Victorina Brad MALDONADO Unavailable Unavailable Jas, Victorina Brad MD Unavailable Unavailable Jas, Victorina Brad MALDONADO Unavailable Unavailable Colona, Victorina Brad MALDONADO Unavailable Unavailable Colona, Victorina Brad MALDONADO Unavailable Unavailable Colona, Victorina Brad MALDONADO Unavailable Unavailable Colona, Victorina Brad MALDONADO Unavailable Unavailable Colona, Victorina Brad MD Unavailable Unavailable Colona, Victorina Brad MD Unavailable Unavailable Jas, Victorina Brad MD Unavailable Unavailable Colona, Victorina Brad MD Unavailable Unavailable Quinones, D Janice ENDODONTIST-C Unavailable Unavailable Quinones, D Janice ENDODONTIST-C Unavailable Unavailable Quinones, D Janice ENDODONTIST-C Unavailable Unavailable Quinones, D Janice ENDODONTIST-C Unavailable Unavailable Quinones, D Janice ENDODONTIST-C Unavailable Unavailable Quinones, D Janice ENDODONTIST-C Unavailable Unavailable Quinones, D Janice ENDODONTIST-C Unavailable Unavailable SUZANNA, RAY CARLOS ENDODONTIST-C Unavailable Unavailable SUZANNA, RAY CARLOS ENDODONTIST-C Unavailable Unavailable SUZANNA, RAY CARLOS ENDODONTIST-C Unavailable Unavailable SUZANNA, RAY CARLOS ENDODONTIST-C Unavailable Unavailable SUZANNA, RAY CARLOS ENDODONTIST-C Unavailable Unavailable SUZANNA, RAY CARLOS ENDODONTIST-C Unavailable Unavailable SUZANNA, RAY CARLOS ENDODONTIST-C Unavailable Unavailable SUZANNA, RAY CARLOS ENDODONTIST-C Unavailable Unavailable SUZANNA, RAY CARLOS ENDODONTIST-C Unavailable Unavailable SUZANNA, RAY CARLOS ENDODONTIST-C Unavailable Unavailable SUZANNA, RAY CARLOS ENDODONTIST-C Unavailable Unavailable SUZANNA, RAY CARLOS ENDODONTIST-C Unavailable Unavailable SUZANNA, RAY CARLOS ENDODONTIST-C Unavailable Unavailable SUZANNA, RAY CARLOS ENDODONTIST-C Unavailable Unavailable SUZANNA, RAY CARLOS ENDODONTIST-C Unavailable Unavailable SUZANNA, RAY CARLOS ENDODONTIST-C Unavailable Unavailable SUZANNARAY MartinezSEA ENDODONTIST-C Unavailable Unavailable Culberson, Alvina ENDODONTIST Unavailable Unavailable Culberson, Alvina ENDODONTIST Unavailable Unavailable Culberson, Alvina ENDODONTIST Unavailable Unavailable Culberson, Alvina ENDODONTIST Unavailable Unavailable Culberson, Alvina ENDODONTIST Unavailable Unavailable Culberson, Alvina ENDODONTIST Unavailable Unavailable Culberson, Alvina ENDODONTIST Unavailable Unavailable Culberson, Alvina ENDODONTIST Unavailable Unavailable Culberson, Alvina ENDODONTIST Unavailable Unavailable Culberson, Alvina ENDODONTIST Unavailable Unavailable Culberson, Alvina ENDODONTIST Unavailable Unavailable Culberson, Alvina ENDODONTIST Unavailable Unavailable Culberson, Alvina ENDODONTIST Unavailable Unavailable Culberson, Alvina ENDODONTIST Unavailable Unavailable Culberson, Alvina ENDODONTIST Unavailable Unavailable Culberson, Alvina ENDODONTIST Unavailable Unavailable Culberson, Alvina ENDODONTIST Unavailable Unavailable Culberson, Alvina ENDODONTIST Unavailable Unavailable Culberson, Alvina ENDODONTIST Unavailable Unavailable Culberson, Alvina ENDODONTIST Unavailable Unavailable Culberson, Alvina ENDODONTIST Unavailable Unavailable Culberson, Alvina ENDODONTIST Unavailable Unavailable Culberson, Alvina ENDODONTIST Unavailable Unavailable Culberson, Alvina ENDODONTIST Unavailable Unavailable Culberson, Alvina ENDODONTIST Unavailable Unavailable Culberson, Alvina ENDODONTIST Unavailable Unavailable Culberson, Alvina ENDODONTIST Unavailable Unavailable Culberson, Alvina ENDODONTIST Unavailable Unavailable Culberson, Alvina ENDODONTIST Unavailable Unavailable Culberson, Alvina ENDODONTIST Unavailable Unavailable Culberson, Alvina ENDODONTIST Unavailable Unavailable Culberson, Alvina ENDODONTIST Unavailable Unavailable Culberson, Alvina ENDODONTIST Unavailable Unavailable Culberson, Alvina ENDODONTIST Unavailable Unavailable Culberson, Alvina ENDODONTIST Unavailable Unavailable Culberson, Alvina ENDODONTIST Unavailable Unavailable MD JEREMIE MIRANDA Unavailable Unavailable KHAIRALLAH, RAMZI MD Unavailable Unavailable KHAIRALLAH, RAMZI MD Unavailable Unavailable KHAIRALLAH, RAMZI MD Unavailable Unavailable KHAIRALLAH, RAMZI MD Unavailable Unavailable KHAIRALLAH, RAMZI MD Unavailable Unavailable KHAIRALLAH, RAMZI MD Unavailable Unavailable KHAIRALLAH, RAMZI MD Unavailable Unavailable KHAIRALLAH, RAMZI MD Unavailable Unavailable KHAIRALLAH, RAMZI MD Unavailable Unavailable KHAIRALLAH, RAMZI MD Unavailable Unavailable KHAIRALLAH, RAMZI MD Unavailable Unavailable KHAIRALLAH, RAMZI MD Unavailable Unavailable KHAIRALLAH, RAMZI MD Unavailable Unavailable KHAIRALLAH, RAMZI MD Unavailable Unavailable KHAIRALLAH, RAMZI MD Unavailable Unavailable KHAIRALLAH, RAMZI MD Unavailable Unavailable KHAIRALLAH, RAMZI MD Unavailable Unavailable KHAIRALLAH, RAMZI MD Unavailable Unavailable KHAIRALLAH, RAMZI MD Unavailable Unavailable KHAIRALLAH, RAMZI MD Unavailable Unavailable KHAIRALLAH, RAMZI MD Unavailable Unavailable KHAIRALLAH, RAMZI MD Unavailable Unavailable KHAIRALLAH, RAMZI MD Unavailable Unavailable KHAIRALLAH, RAMZI MD Unavailable Unavailable KHAIRALLAH, RAMZI MD Unavailable Unavailable KHAIRALLAH, RAMZI MD Unavailable Unavailable KHAIRALLAH, RAMZI MD Unavailable Unavailable KHAIRALLAH, RAMZI MD Unavailable Unavailable KHAIRALLAH, RAMZI MD Unavailable Unavailable KHAIRALLAH, RAMZI MD Unavailable Unavailable KHAIRALLAH, RAMZI MD Unavailable Unavailable KHAIRALLAH, RAMZI MD Unavailable Unavailable KHAIRALLAH, RAMZI MD Unavailable Unavailable KHAIRALLAH, RAMZI MD Unavailable Unavailable KHAIRALLAH, RAMZI MD Unavailable Unavailable KHAIRALLAH, RAMZI MD Unavailable Unavailable KHAIRALLAH, RAMZI MD Unavailable Unavailable KHAIRALLAH, RAMZI MD Unavailable Unavailable KHAIRALLAH, RAMZI MD Unavailable Unavailable KHAIRALLAH, RAMZI MD Unavailable Unavailable KHAIRALLAH, RAMZI MD Unavailable Unavailable KHAIRALLAH, RAMZI MD Unavailable Unavailable KHAIRALLAH, RAMZI MD Unavailable Unavailable KHAIRALLAH, RAMZI MD Unavailable Unavailable KHAIRALLAH, RAMZI MD Unavailable Unavailable KHAIRALLAH, RAMZI MD Unavailable Unavailable KHAIRALLAH, RAMZI MD Unavailable Unavailable KHAIRALLAH, RAMZI MD Unavailable Unavailable KHAIRALLAH, RAMZI MD Unavailable Unavailable KHAIRALLAH, RAMZI MD Unavailable Unavailable KHAIRALLAH, RAMZI MD Unavailable Unavailable KHAIRALLAH, RAMZI MD Unavailable Unavailable KHAIRALLAH, RAMZI MD Unavailable Unavailable KHAIRALLAH, RAMZI MD Unavailable Unavailable KHAIRALLAH, RAMZI MD Unavailable Unavailable KHAIRALLAH, RAMZI MD Unavailable Unavailable KHAIRALLAH, RAMZI MD Unavailable Unavailable KHAIRALLAH, RAMZI MD Unavailable Unavailable KHAIRALLAH, RAMZI MD Unavailable Unavailable KHAIRALLAH, RAMZI MD Unavailable Unavailable KHAIRALLAH, RAMZI MD Unavailable Unavailable KHAIRALLAH, RAMZI MD Unavailable Unavailable KHAIRALLAH, RAMZI MD Unavailable Unavailable KHAIRALLAH, RAMZI MD Unavailable Unavailable KHAIRALLAH, RAMZI MD Unavailable Unavailable KHAIRALLAH, RAMZI MD Unavailable Unavailable KHAIRALLAH, RAMZI MD Unavailable Unavailable KHAIRALLAH, RAMZI MD Unavailable Unavailable KHAIRALLAH, RAMZI MD Unavailable Unavailable KHAIRALLAH, RAMZI MD Unavailable Unavailable KHAIRALLAH, RAMZI MD Unavailable Unavailable KHAIRALLAH, RAMZI MD Unavailable Unavailable KHAIRALLAH, RAMZI MD Unavailable Unavailable KHAIRALLAH, RAMZI MD Unavailable Unavailable KHAIRALLAH, RAMZI MD Unavailable Unavailable KHAIRALLAH, RAMZI MD Unavailable Unavailable KHAIRALLAH, RAMZI MD Unavailable Unavailable KHAIRALLAH, RAMZI MD Unavailable Unavailable KHAIRALLAH, RAMZI MD Unavailable Unavailable KHAIRALLAH, RAMZI MD Unavailable Unavailable KHAIRALLAH, RAMZI MD Unavailable Unavailable KHAIRALLAH, RAMZI MD Unavailable Unavailable KHAIRALLAH, RAMZI MD Unavailable Unavailable KHAIRALLAH, RAMZI MD Unavailable Unavailable KHAIRALLAH, RAMZI MD Unavailable Unavailable KHAIRALLAH, RAMZI MD Unavailable Unavailable KHAIRALLAH, RAMZI MD Unavailable Unavailable KHAIRALLAH, RAMZI MD Unavailable Unavailable KHAIRALLAH, RAMZI MD Unavailable Unavailable Re-disclosure Warning The records that you are about to access may contain information from federally-assisted alcohol or drug abuse programs. If such information is present, then the following federally mandated warning applies: This information has been disclosed to you from records protected by federal confidentiality rules (42 CFR part 2). The federal rules prohibit you from making any further disclosure of this information unless further disclosure is expressly permitted by the written consent of the person to whom it pertains or as otherwise permitted by 42 CFR part 2. A general authorization for the release of medical or other information is NOT sufficient for this purpose. The Federal rules restrict any use of the information to criminally investigate or prosecute any alcohol or drug abuse patient.The records that you are about to access may contain highly sensitive health information, the redisclosure of which is protected by Article 27-F of the [facility] Public Health law. If you continue you may have access to information: Regarding HIV / AIDS; Provided by facilities licensed or operated by the [facility] Office of Mental Health; or Provided by the [facility] Office for People With Developmental Disabilities. If such information is present, then the following [facility] mandated warning applies: This information has been disclosed to you from confidential records which are protected by state law. State law prohibits you from making any further disclosure of this information without the specific written consent of the person to whom it pertains, or as otherwise permitted by law. Any unauthorized further disclosure in violation of state law may result in a fine or senior care sentence or both. A general authorization for the release of medical or other information is NOT sufficient authorization for further disc losure. Allergies and Adverse Reactions Type Description Substance Reaction Status Data Source(s ) Propensity to adverse reactions NO KNOWN ALLERGIES NO KNOWN ALLERGIES [facility] Propensity to adverse reactions NO KNOWN ALLERGIES NO KNOWN ALLERGIES [facility] Family History Family Member Name Family Member Gender Family Member Status Date o f Status Description Data Source(s) Unknown Female Problem (finding) 11/24/2016 12:00:00 AM EDT [facility] ([facility]) Unknown Female Problem (finding) 11/24/2016 12:00:00 AM EDT [facility] ([facility]) Unknown Female Problem (finding) 11/24/2013 12:00:00 AM EDT [facility] ([facility]) Unknown Male Problem MEDENT ([facility]) Encounters Encounter Providers Location Date Indications Data Source(s ) Outpatient Attender: CARLOS Luis/Nilo/Julio/Naveen marshall 05/20/2021 07:00:00 AM EST [facility] ([facility] [place] [address] [address] 05/11/2021 12:00:00 AM EDT eCW1 ([facility]) [place] [address] [address] 05/11/2021 12:00:00 AM EDT eCW1 ([facility]) [place] [address] [address] 05/02/2021 12:00:00 AM EDT [facility]) [place] [address] [address] 05/01/2021 12:00:00 AM EDT eCW1 ([facility]) Office Visit, Est Pt., Level 3 PC [address] [place] [address] 04/26/2021 12:00:00 AM EDT eCW1 ([facility]) [place] [address] [address] 04/22/2021 12:00:00 AM EDT eCW1 ([facility]) [place] [address] [address] 04/18/2021 12:00:00 AM EDT eCW1 ([facility]) [place] [address] [address] 03/30/2021 12:00:00 AM EDT eCW1 ([facility]) [place] [address] [address] 03/24/2021 12:00:00 AM EDT eCW1 ([facility]) Outpatient Attender: Janice GUNNP-C Main Office 03/22/2021 02:30:00 PM EDT [facility] ([facility]) [place] [address] [address] 03/10/2021 12:00:00 AM EDT eCW1 ([facility]) [place] [address] [address] 03/03/2021 12:00:00 AM EDT eCW1 ([facility]) Outpatient Attender: STEVE PERALTA NP 02/07 08:28:05 AM EDT - 03/02/2021 09:30:06 AM EDT [facility] ([facility] ) [place] [address] [address] 02/22/2021 12:00:00 AM EDT [facility]CW1 ([facility]) [place] [address] [address] 02/03/2021 12:00:00 AM EDT eCW1 ([facility]) [place] [address] [address] 01/26/2021 12:00:00 AM EDT eCW1 ([facility]) [place] [address] [address] 01/24/2021 12:00:00 AM EDT eCW1 ([facility]) [place] [address] [address] 01/21/2021 12:00:00 AM EDT eCW1 ([facility]) [place] [address] [address] 01/19/2021 12:00:00 AM EDT eCW1 ([facility]) [place] [address] [address] 01/19/2021 12:00:00 AM EDT eCW1 [facility]) Outpatient Attender: Mirta Mason [facility] Main Office 01/13/2021 11:30:00 AM EDT [facility] ([facility]) [place] [address] [address] 01/03/2021 12:00:00 AM EDT eCW1 [facility]) [place] [address] [address] 12/27/2020 12:00:00 AM EDT eCW1 ([facility]) [place] [address] [address] 12/14/2020 12:00:00 AM EDT eCW1 ([facility]) Outpatient Attender: MD JEREMIE MIRANDAReferrer: Kenney Mark MD [id number] 12/13/2020 12:00:00 AM EDT [facility] Patient discharged. Outpatient Attender: Janice Quinones ENDODONTIST-C Main Office 12/07/2020 09:15:00 AM EDT [facility] ([facility]) [place] [address] [address] 11/23/2020 12:00:00 AM EDT eCW1 ([facility]) Unknown [address] [facility] [place] [address] 11/22/2020 12:00:00 AM EDT eCW1 ([facility]) [place] [address] [address] 11/22/2020 12:00:00 AM EDT eCW1 ([facility]) Outpatient Attender: Janice Quinones [facility] Main Office 11/17/2020 10:30:00 AM EDT [facility] ([facility]) [place] [address] [address] 11/17/2020 12:00:00 AM EDT eCW1 ([facility]) Outpatient Referrer: PROVIDER SYSTEM IN 11/03/2020 1 2:00:00 AM EDT Essential [facility]or [facility] Essential tremor Outpatient Attender: MD JEREMIE MIRANDAReferrer: Kenney Mark MD [id number] 11/01/2020 12:00:00 AM EDT [facility] Patient discharged. [place] [address] [address] 10/25/2020 12:00:00 AM EDT eCW1 ([facility]) [place] [address] [address] 10/21/2020 12:00:00 AM EDT eCW1 ([facility]) Office Visit, Est Pt., Level 3 PC [address] [place] [address] 10/18/2020 12:00:00 AM EDT eCW1 ([facility]) [place] [address] [address] 10/16/2020 12:00:00 AM EDT eCW1 ([facility]) [place] [address] [facility] [place] [address] 10/14/2020 12:00:00 AM EDT eCW1 ([facility]) [place] [address] [address] 09/28/2020 12:00:00 AM EDT eCW1 ([facility]) Unknown [address] [facility] [place] [address] 08/30/2020 12:00:00 AM EST eCW1 ([facility]) Unknown [address] [facility] [place] [address] 08/26/2020 12:00:00 AM EST eCW1 ([facility]) Unknown [address] [facility] [place] [address] 08/25/2020 12:00:00 AM EST eCW1 ([facility]) Unknown [address] [facility] [place] [address] 08/24/2020 12:00:00 AM EST eCW1 ([facility]) Unknown [address] [facility] [place] [address] 08/24/2020 12:00:00 AM EST eCW1 ([facility]) Unknown [address] [facility] [place] [address] 08/23/2020 12:00:00 AM EST eCW1 ([facility]) Unknown [address] [facility] [place] [address] 08/23/2020 12:00:00 AM EST eCW1 ([facility]) Unknown [address] [facility] [place] [address] 08/20/2020 12:00:00 AM EST [facility]CW[facility] ([facility]) [place] [address] [address] 08/19/2020 12:00:00 AM EST eCW1 ([facility]) [place]patient [address] [address] 08/18/2020 12:00:00 AM EST eCW1 ([facility]) [place] [address] [address] 08/18/2020 12:00:00 AM EST eCW1 ([facility]) [place] [address] [address] 07/27/2020 12:00:00 AM EST eCW1 ([facility]) Attender: ROWDY VERONICA MD [facility] 07/20/2020 07:07:00 PM EST - 07/20/2020 07:07:00 PM EST [facility] ( [facility]) [place] [address] [address] 07/16/2020 12:00:00 AM EST eCW1 ([facility]) [place] [address] [address] 06/29/2020 12:00:00 AM EST eCW1 ([facility]) [place]patient [address] [address] 06/29/2020 12:00:00 AM EST [facility]CW1 [facility] [place] [address] [address] 05/14/2020 12:00:00 AM EST eCW1 ([facility]) [place] [address] [address] 04/25/2020 12:00:00 AM EDT eCW1 ([facility]) Immunizations Vaccine Date Status Description Data Source(s) COVID-19 VACCINE Moderna 05/06/2021 12:00:00 AM EDT completed [employer] Vaccine Series Complete: YESThis Data wa s Submitted to [facility] Via [employer]. COVID-19 VACCINE Moderna 09/08/2020 12:00:00 AM EST completed [employer] Vaccine Series Complete: YESThis Data wa s Submitted to [facility] Via [employer]. COVID-19 dose #1 given elsewhere Unspecified 08/11/2020 05:0 1:00 PM EST completed eCW1 ([facility]) COVID-19 dose #1 given elsewhere Unspecified 08/11/2020 05:0 1:00 PM EST completed eCW1 ([facility]) COVID-19 dose #1 given elsewhere Unspecified 08/11/2020 05:0 1:00 PM EST completed eCW1 ([facility]) COVID-19 dose #1 given elsewhere Unspecified 08/11/2020 05:0 1:00 PM EST completed eCW1 ([facility]) COVID-19 dose #1 given elsewhere Unspecified 08/11/2020 05:0 1:00 PM EST completed eCW1 ([facility]) COVID-19 dose #1 given elsewhere Unspecified 08/11/2020 05:0 1:00 PM EST completed eCW1 ([facility]) COVID-19 dose #1 given elsewhere Unspecified 08/11/2020 05:0 1:00 PM EST completed eCW1 ([facility]) COVID-19 dose #1 given elsewhere Unspecified 08/11/2020 05:0 1:00 PM EST completed eCW1 ([facility]) COVID-19 dose #1 given elsewhere Unspecified 08/11/2020 05:0 1:00 PM EST completed eCW1 ([facility]) COVID-19 dose #1 given elsewhere Unspecified 08/11/2020 05:0 1:00 PM EST completed eCW1 ([facility]) COVID-19 dose #1 given elsewhere Unspecified 08/11/2020 05:0 1:00 PM EST completed eCW1 ([facility]) COVID-19 dose #1 given elsewhere Unspecified 08/11/2020 05:0 1:00 PM EST completed eCW1 ([facility]) COVID-19 dose #1 given elsewhere Unspecified 08/11/2020 05:0 1:00 PM EST completed eCW1 ([facility]) COVID-19 dose #1 given elsewhere Unspecified 08/11/2020 05:0 1:00 PM EST completed eCW1 ([facility]) COVID-19 dose #1 given elsewhere Unspecified 08/11/2020 05:0 1:00 PM EST completed eCW1 ([facility]) COVID-19 dose #1 given elsewhere Unspecified 08/11/2020 05:0 1:00 PM EST completed eCW1 ([facility]) COVID-19 dose #1 given elsewhere Unspecified 08/11/2020 05:0 1:00 PM EST completed eCW1 ([facility]) COVID-19 dose #1 given elsewhere Unspecified 08/11/2020 05:0 1:00 PM EST completed eCW1 ([facility]) COVID-19 dose #1 given elsewhere Unspecified 08/11/2020 05:0 1:00 PM EST completed eCW1 ([facility]) COVID-19 dose #1 given elsewhere Unspecified 08/11/2020 05:0 1:00 PM EST completed eCW1 ([facility]) COVID-19 dose #1 given elsewhere Unspecified 08/11/2020 05:0 1:00 PM EST completed eCW1 ([facility]) COVID-19 dose #1 given elsewhere Unspecified 08/11/2020 05:0 1:00 PM EST completed eCW1 ([facility]) COVID-19 dose #1 given elsewhere Unspecified 08/11/2020 05:0 1:00 PM EST completed eCW1 ([facility]) COVID-19 dose #1 given elsewhere Unspecified 08/11/2020 05:0 1:00 PM EST completed eCW1 ([facility]) COVID-19 dose #1 given elsewhere Unspecified 08/11/2020 05:0 1:00 PM EST completed eCW1 ([facility]) COVID-19 dose #1 given elsewhere Unspecified 08/11/2020 05:0 1:00 PM EST completed eCW1 ([facility]) COVID-19 dose #1 given elsewhere Unspecified 08/11/2020 05:0 1:00 PM EST completed eCW1 ([facility]) COVID-19 dose #1 given elsewhere Unspecified 08/11/2020 05:0 1:00 PM EST completed eCW1 ([facility]) COVID-19 dose #1 given elsewhere Unspecified 08/11/2020 05:0 1:00 PM EST completed eCW1 ([facility]) COVID-19 dose #1 given elsewhere Unspecified 08/11/2020 05:0 1:00 PM EST completed eCW1 ([facility]) COVID-19 dose #1 given elsewhere Unspecified 08/11/2020 05:0 1:00 PM EST completed eCW1 ([facility]) COVID-19 dose #1 given elsewhere Unspecified 08/11/2020 05:0 1:00 PM EST completed eCW1 ([facility]) COVID-19 dose #1 given elsewhere Unspecified 08/11/2020 05:0 1:00 PM EST completed eCW1 ([facility]) COVID-19 dose #1 given elsewhere Unspecified 08/11/2020 05:0 1:00 PM EST completed eCW1 ([facility]) COVID-19 dose #1 given elsewhere Unspecified 08/11/2020 05:0 1:00 PM EST completed eCW1 ([facility]) COVID-19 dose #1 given elsewhere Unspecified 08/11/2020 05:0 1:00 PM EST completed eCW1 ([facility]) COVID-19 dose #1 given elsewhere Unspecified 08/11/2020 05:0 1:00 PM EST completed eCW1 ([facility]) Imm: COVID-19 dose #1 given elsewhere Unspecified 08/11/2020 05:01:00 PM EST completed eCW1 ([facility]) Imm: COVID-19 dose #1 given elsewhere Unspecified 08/11/2020 05:01:00 PM EST completed eCW1 ([facility]) Imm: COVID-19 dose #1 given elsewhere Unspecified 08/11/2020 05:01:00 PM EST completed eCW1 ([facility]) COVID-19 dose #1 (given elsewhere) Unspecified 08/11/2020 05 :01:00 PM EST completed eCW1 ([facility]) COVID-19 dose #1 (given elsewhere) Unspecified 08/11/2020 05 :01:00 PM EST completed eCW1 ([facility]) COVID-19 dose #1 (given elsewhere) Unspecified 08/11/2020 05 :01:00 PM EST completed eCW1 ([facility]) COVID-19 dose #1 (given elsewhere) Unspecified 08/11/2020 05 :01:00 PM EST completed eCW1 ([facility]) COVID-19(given elsewhere) Unspecified 08/11/2020 05:01:00 PM EST co mpleted eCW1 ([facility]) COVID-19 VACCINE Moderna 08/11/2020 12:00:00 AM EST completed [employer] Vaccine Series Complete: NOThis Data was Submitted to [facility] Via [employer]. IIV3. This is one of two codes replacing CVX 15, which is being retired. 05/03/2020 11:30:00 AM EDT completed eCW1 ([facility]) IIV3. This is one of two codes replacing CVX 15, which is being retired. 05/03/2020 11:30:00 AM EDT completed eCW1 ([facility]) IIV3. This is one of two codes replacing CVX 15, which is being retired. 05/03/2020 11:30:00 AM EDT completed eCW1 ([facility]) IIV3. This is one of two codes replacing CVX 15, which is being retired. 05/03/2020 11:30:00 AM EDT completed eCW1 ([facility]) IIV3. This is one of two codes replacing CVX 15, which is being retired. 05/03/2020 11:30:00 AM EDT completed eCW1 ([facility]) IIV3. This is one of two codes replacing CVX 15, which is being retired. 05/03/2020 11:30:00 AM EDT completed eCW1 ([facility]) IIV3. This is one of two codes replacing CVX 15, which is being retired. 05/03/2020 11:30:00 AM EDT completed eCW1 ([facility]) IIV3. This is one of two codes replacing CVX 15, which is being retired. 05/03/2020 11:30:00 AM EDT completed eCW1 ([facility]) IIV3. This is one of two codes replacing CVX 15, which is being retired. 05/03/2020 11:30:00 AM EDT completed eCW1 ([facility]) IIV3. This is one of two codes replacing CVX 15, which is being retired. 05/03/2020 11:30:00 AM EDT completed eCW1 ([facility]) IIV3. This is one of two codes replacing CVX 15, which is being retired. 05/03/2020 11:30:00 AM EDT completed eCW1 ([facility]) IIV3. This is one of two codes replacing CVX 15, which is being retired. 05/03/2020 11:30:00 AM EDT completed eCW1 ([facility]) IIV3. This is one of two codes replacing CVX 15, which is being retired. 05/03/2020 11:30:00 AM EDT completed eCW1 ([facility]) IIV3. This is one of two codes replacing CVX 15, which is being retired. 05/03/2020 11:30:00 AM EDT completed eCW1 ([facility]) IIV3. This is one of two codes replacing CVX 15, which is being retired. 05/03/2020 11:30:00 AM EDT completed eCW1 ([facility]) IIV3. This is one of two codes replacing CVX 15, which is being retired. 05/03/2020 11:30:00 AM EDT completed eCW1 ([facility]) IIV3. This is one of two codes replacing CVX 15, which is being retired. 05/03/2020 11:30:00 AM EDT completed eCW1 ([facility]) IIV3. This is one of two codes replacing CVX 15, which is being retired. 05/03/2020 11:30:00 AM EDT completed eCW1 ([facility]) IIV3. This is one of two codes replacing CVX 15, which is being retired. 05/03/2020 11:30:00 AM EDT completed eCW1 ([facility]) IIV3. This is one of two codes replacing CVX 15, which is being retired. 05/03/2020 11:30:00 AM EDT completed eCW1 ([facility]) IIV3. This is one of two codes replacing CVX 15, which is being retired. 05/03/2020 11:30:00 AM EDT completed eCW1 ([facility]) IIV3. This is one of two codes replacing CVX 15, which is being retired. 05/03/2020 11:30:00 AM EDT completed eCW1 ([facility]) IIV3. This is one of two codes replacing CVX 15, which is being retired. 05/03/2020 11:30:00 AM EDT completed eCW1 ([facility]) IIV3. This is one of two codes replacing CVX 15, which is being retired. 05/03/2020 11:30:00 AM EDT completed eCW1 ([facility]) IIV3. This is one of two codes replacing CVX 15, which is being retired. 05/03/2020 11:30:00 AM EDT completed eCW1 ([facility]) IIV3. This is one of two codes replacing CVX 15, which is being retired. 05/03/2020 11:30:00 AM EDT completed eCW1 ([facility]) IIV3. This is one of two codes replacing CVX 15, which is being retired. 05/03/2020 11:30:00 AM EDT completed eCW1 ([facility]) IIV3. This is one of two codes replacing CVX 15, which is being retired. 05/03/2020 11:30:00 AM EDT completed eCW1 ([facility]) IIV3. This is one of two codes replacing CVX 15, which is being retired. 05/03/2020 11:30:00 AM EDT completed eCW1 ([facility]) IIV3. This is one of two codes replacing CVX 15, which is being retired. 05/03/2020 11:30:00 AM EDT completed eCW1 ([facility]) IIV3. This is one of two codes replacing CVX 15, which is being retired. 05/03/2020 11:30:00 AM EDT completed eCW1 ([facility]) IIV3. This is one of two codes replacing CVX 15, which is being retired. 05/03/2020 11:30:00 AM EDT completed eCW1 ([facility]) IIV3. This is one of two codes replacing CVX 15, which is being retired. 05/03/2020 11:30:00 AM EDT completed eCW1 ([facility]) IIV3. This is one of two codes replacing CVX 15, which is being retired. 05/03/2020 11:30:00 AM EDT completed eCW1 ([facility]) IIV3. This is one of two codes replacing CVX 15, which is being retired. 05/03/2020 11:30:00 AM EDT completed eCW1 ([facility]) IIV3. This is one of two codes replacing CVX 15, which is being retired. 05/03/2020 11:30:00 AM EDT completed eCW1 ([facility]) IIV3. This is one of two codes replacing CVX 15, which is being retired. 05/03/2020 11:30:00 AM EDT completed eCW1 ([facility]) IIV3. This is one of two codes replacing CVX 15, which is being retired. 05/03/2020 11:30:00 AM EDT completed eCW1 ([facility]) IIV3. This is one of two codes replacing CVX 15, which is being retired. 05/03/2020 11:30:00 AM EDT completed eCW1 ([facility]) IIV3. This is one of two codes replacing CVX 15, which is being retired. 05/03/2020 11:30:00 AM EDT completed eCW1 ([facility]) IIV3. This is one of two codes replacing CVX 15, which is being retired. 05/03/2020 11:30:00 AM EDT completed eCW1 ([facility]) IIV3. This is one of two codes replacing CVX 15, which is being retired. 05/03/2020 11:30:00 AM EDT completed eCW1 ([facility]) IIV3. This is one of two codes replacing CVX 15, which is being retired. 05/03/2020 11:30:00 AM EDT completed eCW1 ([facility]) IIV3. This is one of two codes replacing CVX 15, which is being retired. 05/03/2020 11:30:00 AM EDT completed eCW1 ([facility]) IIV3. This is one of two codes replacing CVX 15, which is being retired. 05/03/2020 11:30:00 AM EDT completed eCW1 ([facility]) IIV3. This is one of two codes replacing CVX 15, which is being retired. 05/03/2020 11:30:00 AM EDT completed eCW1 ([facility]) Medications Medication Brand Name Start Date Product Form Dose Route Admi nistrative Instructions Pharmacy Instructions Status Indications Reaction Description Data Source(s) atorvastatin 40 MG Oral Tablet ATORVASTATIN CALCIUM 05/12/2021 1 2:00:00 AM EDT tablet 90 TAKE ONE TABLET BY MOUTH EVERY D AY TAKE ONE TABLET BY MOUTH EVERY DAY SOLD: 05/13/2021 [facility] 60 mg 05/12/2021 12:00:00 AM EDT capsule,extended releas e 24 hr 180 TAKE ONE CAPSULE BY MOUTH TWICE A DAY TAKE ONE CAPSULE BY MOUTH TWICE A DAY SOLD: 05/13/2021 [facility] 10 mg 05/12/2021 12:00:00 AM EDT tablet 90 TAKE ONE TABLET BY MOUTH EVERY DAY TAKE ONE TABLET BY MOUTH EVERY DAY SOLD: 05/13/2021 [facility] 200 mg 05/12/2021 12:00:00 AM EDT capsule 90 TAKE 1 CAPSULE BY MOUTH ONCE DAILY WITH FOOD TAKE 1 CAPSULE BY MOUTH ONCE DAILY WITH FOOD SOLD: 05/13/2021 [facility] 20 mg 05/04/2021 12:00:00 AM EDT capsule,delayed release (DR/EC) 90 TAKE ONE CAPSULE BY MOUTH EVERY DAY TAKE ONE CAPSULE BY MOUTH EVERY DAY SOLD: 05/05/2021 [facility] 250 mg 05/03/2021 12:00:00 AM EDT tablet 6 TAKE TWO TABLETS BY MOUTH AT ONCE ON THE FIRST DAY THEN TAKE ONE DAILY THEREAFTER TAKE TWO TABLETS BY MOUTH AT ONCE ON THE FIRST DAY THEN TAKE ONE DAILY THEREAFTER SOLD: 05/03/2021 [facility] Azithromycin 250 MG Oral Tablet [Zithromax] Zithromax 250 MG Zithromax 250 MG 05/03/2021 12:00:00 AM EDT active Zithromax 250 MG eCW1 ([facility]) Ketoconazole 20 MG/ML Medicated Shampoo KETOCONAZOLE 05/03/20 12:00:00 AM EDT shampoo 120 USE TO SHAMPOO DAILY UNTIL SCALP IS CLEAR THEN 2-3 TIMES WEEKLY FOR MAITENANCE USE TO SHAMPOO DAILY UNTIL SCALP IS VINAY R THEN 2-3 TIMES WEEKLY FOR MAITENANCE SOLD: 05/03/2021 [facility] Azithromycin 250 MG Oral Tablet [Zithromax] Zithromax 250 MG Zithromax 250 MG 05/03/2021 12:00:00 AM EDT active Zithromax 250 MG eCW1 ([facility]) Azithromycin 250 MG Oral Tablet [Zithromax] Zithromax 250 MG Zithromax 250 MG 05/03/2021 12:00:00 AM EDT active Zithromax 250 MG eCW1 ([facility]) Azithromycin 250 MG Oral Tablet [Zithromax] Zithromax 250 MG Zithromax 250 MG 05/03/2021 12:00:00 AM EDT active Zithromax 250 MG eCW1 ([facility]) Azithromycin 250 MG Oral Tablet [Zithromax] Zithromax 250 MG Zithromax 250 MG 05/03/2021 12:00:00 AM EDT active Zithromax 250 MG eCW1 ([facility]) tramadol hydrochloride 50 MG Oral Tablet traMADol HCl 50 MG traMADol HCl 50 MG 04/26/2021 12:00:00 AM EDT 1.0 {tablet} active traMADol HCl 50 MG eCW1 ([facility]) Cephalexin 500 MG Oral Tablet Cephalexin 500 MG 04/26/2021 12:00:00 AM EDT 1.0 {tablet} active Cephalexin 500 MG eCW1 ([facility]) Cephalexin 500 MG Oral Tablet Cephalexin 500 MG 04/26/2021 12:00:00 AM EDT 1.0 {tablet} active Cephalexin 500 MG eCW1 ([facility]) Cephalexin 500 MG Oral Tablet Cephalexin 500 MG 04/26/2021 12:00:00 AM EDT 1.0 {tablet} active Cephalexin 500 MG eCW1 ([facility]) tramadol hydrochloride 50 MG Oral Tablet traMADol HCl 50 MG traMADol HCl 50 MG 04/26/2021 12:00:00 AM EDT 1.0 {tablet} active traMADol HCl 50 MG eCW1 ([facility]) tramadol hydrochloride 50 MG Oral Tablet traMADol HCl 50 MG traMADol HCl 50 MG 04/26/2021 12:00:00 AM EDT 1.0 {tablet} active traMADol HCl 50 MG eCW1 ([facility]) tramadol hydrochloride 50 MG Oral Tablet traMADol HCl 50 MG traMADol HCl 50 MG 04/26/2021 12:00:00 AM EDT 1.0 {tablet} active traMADol HCl 50 MG eCW1 ([facility]) Cephalexin 500 MG Oral Tablet Cephalexin 500 MG 04/26/2021 12:00:00 AM EDT 1.0 {tablet} active Cephalexin 500 MG eCW1 ([facility]) Cephalexin 500 MG Oral Tablet Cephalexin 500 MG 04/26/2021 12:00:00 AM EDT 1.0 {tablet} active Cephalexin 500 MG eCW1 ([facility]) tramadol hydrochloride 50 MG Oral Tablet traMADol HCl 50 MG traMADol HCl 50 MG 04/26/2021 12:00:00 AM EDT 1.0 {tablet} active traMADol HCl 50 MG eCW1 ([facility]) Cephalexin 500 MG Oral Tablet Cephalexin 500 MG 04/26/2021 12:00:00 AM EDT 1.0 {tablet} active Cephalexin 500 MG eCW1 ([facility]) tramadol hydrochloride 50 MG Oral Tablet traMADol HCl 50 MG traMADol HCl 50 MG 04/26/2021 12:00:00 AM EDT 1.0 {tablet} active traMADol HCl 50 MG eCW1 ([facility]) Cephalexin 500 MG Oral Tablet Cephalexin 500 MG 04/26/2021 12:00:00 AM EDT 1.0 {tablet} active Cephalexin 500 MG eCW1 ([facility]) tramadol hydrochloride 50 MG Oral Tablet traMADol HCl 50 MG traMADol HCl 50 MG 04/26/2021 12:00:00 AM EDT 1.0 {tablet} active traMADol HCl 50 MG eCW1 ([facility]) tramadol hydrochloride 50 MG Oral Tablet traMADol HCl 50 MG traMADol HCl 50 MG 03/30/2021 12:00:00 AM EDT 1.0 {tablet} active traMADol HCl 50 MG eCW1 ([facility]) tramadol hydrochloride 50 MG Oral Tablet traMADol HCl 50 MG traMADol HCl 50 MG 03/30/2021 12:00:00 AM EDT 1.0 {tablet} active traMADol HCl 50 MG eCW1 ([facility]) Fluticasone propionate 0.5 MG/ML Topical Cream Fluticasone P ropionate 01/13/2021 12:00:00 AM EDT completed [facility] ([facility]) duloxetine 20 MG Delayed Release Oral Capsule DULoxeti ne HCl 20 MG DULoxetine HCl 20 MG 01/03/2021 12:00:00 AM EDT 1.0 {capsule} a ctive DULoxetine HCl 20 MG eCW1 ([facility]) duloxetine 20 MG Delayed Release Oral Capsule DULoxeti ne HCl 20 MG DULoxetine HCl 20 MG 01/03/2021 12:00:00 AM EDT 1.0 {capsule} a ctive DULoxetine HCl 20 MG eCW1 ([facility]) duloxetine 20 MG Delayed Release Oral Capsule DULoxeti ne HCl 20 MG DULoxetine HCl 20 MG 01/03/2021 12:00:00 AM EDT 1.0 {capsule} a ctive DULoxetine HCl 20 MG eCW1 ([facility]) duloxetine 20 MG Delayed Release Oral Capsule DULoxeti ne HCl 20 MG DULoxetine HCl 20 MG 01/03/2021 12:00:00 AM EDT 1.0 {capsule} a ctive DULoxetine HCl 20 MG eCW1 ([facility]) duloxetine 20 MG Delayed Release Oral Capsule DULoxeti ne HCl 20 MG DULoxetine HCl 20 MG 01/03/2021 12:00:00 AM EDT 1.0 {capsule} a ctive DULoxetine HCl 20 MG eCW1 ([facility]) duloxetine 20 MG Delayed Release Oral Capsule DULoxeti ne HCl 20 MG DULoxetine HCl 20 MG 01/03/2021 12:00:00 AM EDT 1.0 {capsule} a ctive DULoxetine HCl 20 MG eCW1 ([facility]) duloxetine 20 MG Delayed Release Oral Capsule DULoxeti ne HCl 20 MG DULoxetine HCl 20 MG 01/03/2021 12:00:00 AM EDT 1.0 {capsule} a ctive DULoxetine HCl 20 MG eCW1 ([facility]) duloxetine 20 MG Delayed Release Oral Capsule DULoxeti ne HCl 20 MG DULoxetine HCl 20 MG 01/03/2021 12:00:00 AM EDT 1.0 {capsule} a ctive DULoxetine HCl 20 MG eCW1 ([facility]) duloxetine 20 MG Delayed Release Oral Capsule DULoxeti ne HCl 20 MG DULoxetine HCl 20 MG 01/03/2021 12:00:00 AM EDT 1.0 {capsule} a ctive DULoxetine HCl 20 MG eCW1 ([facility]) duloxetine 20 MG Delayed Release Oral Capsule DULoxeti ne HCl 20 MG DULoxetine HCl 20 MG 01/03/2021 12:00:00 AM EDT 1.0 {capsule} a ctive DULoxetine HCl 20 MG eCW1 ([facility]) duloxetine 20 MG Delayed Release Oral Capsule DULoxeti ne HCl 20 MG DULoxetine HCl 20 MG 01/03/2021 12:00:00 AM EDT 1.0 {capsule} a ctive DULoxetine HCl 20 MG eCW1 ([facility]) duloxetine 20 MG Delayed Release Oral Capsule DULoxeti ne HCl 20 MG DULoxetine HCl 20 MG 01/03/2021 12:00:00 AM EDT 1.0 {capsule} a ctive DULoxetine HCl 20 MG eCW1 ([facility]) duloxetine 20 MG Delayed Release Oral Capsule DULoxeti ne HCl 20 MG DULoxetine HCl 20 MG 01/03/2021 12:00:00 AM EDT 1.0 {capsule} a ctive DULoxetine HCl 20 MG eCW1 ([facility]) duloxetine 20 MG Delayed Release Oral Capsule DULoxeti ne HCl 20 MG DULoxetine HCl 20 MG 01/03/2021 12:00:00 AM EDT 1.0 {capsule} a ctive DULoxetine HCl 20 MG eCW1 ([facility]) duloxetine 20 MG Delayed Release Oral Capsule DULoxeti ne HCl 20 MG DULoxetine HCl 20 MG 01/03/2021 12:00:00 AM EDT 1.0 {capsule} a ctive DULoxetine HCl 20 MG eCW1 ([facility]) duloxetine 20 MG Delayed Release Oral Capsule DULoxeti ne HCl 20 MG DULoxetine HCl 20 MG 01/03/2021 12:00:00 AM EDT 1.0 {capsule} a ctive DULoxetine HCl 20 MG eCW1 ([facility]) duloxetine 20 MG Delayed Release Oral Capsule DULoxeti ne HCl 20 MG DULoxetine HCl 20 MG 01/03/2021 12:00:00 AM EDT 1.0 {capsule} a ctive DULoxetine HCl 20 MG eCW1 ([facility]) duloxetine 20 MG Delayed Release Oral Capsule DULoxeti ne HCl 20 MG DULoxetine HCl 20 MG 01/03/2021 12:00:00 AM EDT 1.0 {capsule} a ctive DULoxetine HCl 20 MG eCW1 ([facility]) duloxetine 20 MG Delayed Release Oral Capsule DULoxeti ne HCl 20 MG DULoxetine HCl 20 MG 01/03/2021 12:00:00 AM EDT 1.0 {capsule} a ctive DULoxetine HCl 20 MG eCW1 ([facility]) duloxetine 20 MG Delayed Release Oral Capsule DULoxeti ne HCl 20 MG DULoxetine HCl 20 MG 01/03/2021 12:00:00 AM EDT 1.0 {capsule} a ctive DULoxetine HCl 20 MG eCW1 ([facility]) Ketoconazole 20 MG/ML Topical Cream Ketoconazole 12/07/2020 12:00:00 AM EDT active [facility] ([facility]) Ketoconazole 20 MG/ML Medicated Shampoo Ketoconazole 11/18/19 12:00:00 AM EDT active [facility] ( [facility]) Clobetasol Propionate 0.5 MG/ML Topical Cream Clobetasol Pro pionate 11/17/2020 12:00:00 AM EDT active [facility] ([facility]) tramadol hydrochloride 50 MG Oral Tablet Tramadol HCl 50 MG Tramadol HCl 50 MG 10/18/2020 12:00:00 AM EDT 1.0 {tablet} active Tramadol HCl 50 MG eCW1 ([facility]) tramadol hydrochloride 50 MG Oral Tablet traMADol HCl 50 MG traMADol HCl 50 MG 10/18/2020 12:00:00 AM EDT 1.0 {tablet} active traMADol HCl 50 MG eCW1 ([facility]) tramadol hydrochloride 50 MG Oral Tablet Tramadol HCl 50 MG Tramadol HCl 50 MG 10/18/2020 12:00:00 AM EDT 1.0 {tablet} active Tramadol HCl 50 MG eCW1 ([facility]) tramadol hydrochloride 50 MG Oral Tablet traMADol HCl 50 MG traMADol HCl 50 MG 10/18/2020 12:00:00 AM EDT 1.0 {tablet} active traMADol HCl 50 MG eCW1 ([facility]) tramadol hydrochloride 50 MG Oral Tablet traMADol HCl 50 MG traMADol HCl 50 MG 10/18/2020 12:00:00 AM EDT 1.0 {tablet} active traMADol HCl 50 MG eCW1 ([facility]) tramadol hydrochloride 50 MG Oral Tablet traMADol HCl 50 MG traMADol HCl 50 MG 10/18/2020 12:00:00 AM EDT 1.0 {tablet} active traMADol HCl 50 MG eCW1 ([facility]) tramadol hydrochloride 50 MG Oral Tablet Tramadol HCl 50 MG Tramadol HCl 50 MG 10/18/2020 12:00:00 AM EDT 1.0 {tablet} active Tramadol HCl 50 MG eCW1 ([facility]) tramadol hydrochloride 50 MG Oral Tablet traMADol HCl 50 MG traMADol HCl 50 MG 10/18/2020 12:00:00 AM EDT 1.0 {tablet} active traMADol HCl 50 MG eCW1 ([facility]) tramadol hydrochloride 50 MG Oral Tablet traMADol HCl 50 MG traMADol HCl 50 MG 10/18/2020 12:00:00 AM EDT 1.0 {tablet} active traMADol HCl 50 MG eCW1 ([facility]) tramadol hydrochloride 50 MG Oral Tablet Tramadol HCl 50 MG Tramadol HCl 50 MG 10/18/2020 12:00:00 AM EDT 1.0 {tablet} active Tramadol HCl 50 MG eCW1 ([facility]) tramadol hydrochloride 50 MG Oral Tablet Tramadol HCl 50 MG Tramadol HCl 50 MG 10/18/2020 12:00:00 AM EDT 1.0 {tablet} active Tramadol HCl 50 MG eCW1 ([facility]) tramadol hydrochloride 50 MG Oral Tablet traMADol HCl 50 MG traMADol HCl 50 MG 10/18/2020 12:00:00 AM EDT 1.0 {tablet} active traMADol HCl 50 MG eCW1 ([facility]) tramadol hydrochloride 50 MG Oral Tablet traMADol HCl 50 MG traMADol HCl 50 MG 10/18/2020 12:00:00 AM EDT 1.0 {tablet} active traMADol HCl 50 MG eCW1 ([facility]) tramadol hydrochloride 50 MG Oral Tablet traMADol HCl 50 MG traMADol HCl 50 MG 10/18/2020 12:00:00 AM EDT 1.0 {tablet} active traMADol HCl 50 MG eCW1 ([facility]) tramadol hydrochloride 50 MG Oral Tablet Tramadol HCl 50 MG Tramadol HCl 50 MG 10/18/2020 12:00:00 AM EDT 1.0 {tablet} active Tramadol HCl 50 MG eCW1 ([facility]) tramadol hydrochloride 50 MG Oral Tablet traMADol HCl 50 MG traMADol HCl 50 MG 10/18/2020 12:00:00 AM EDT 1.0 {tablet} active traMADol HCl 50 MG eCW1 ([facility]) tramadol hydrochloride 50 MG Oral Tablet traMADol HCl 50 MG traMADol HCl 50 MG 10/18/2020 12:00:00 AM EDT 1.0 {tablet} active traMADol HCl 50 MG eCW1 ([facility]) tramadol hydrochloride 50 MG Oral Tablet Tramadol HCl 50 MG Tramadol HCl 50 MG 10/18/2020 12:00:00 AM EDT 1.0 {tablet} active Tramadol HCl 50 MG eCW1 ([facility]) tramadol hydrochloride 50 MG Oral Tablet traMADol HCl 50 MG traMADol HCl 50 MG 10/18/2020 12:00:00 AM EDT 1.0 {tablet} active traMADol HCl 50 MG eCW1 ([facility]) tramadol hydrochloride 50 MG Oral Tablet Tramadol HCl 50 MG Tramadol HCl 50 MG 10/18/2020 12:00:00 AM EDT 1.0 {tablet} active Tramadol HCl 50 MG eCW1 ([facility]) tramadol hydrochloride 50 MG Oral Tablet traMADol HCl 50 MG traMADol HCl 50 MG 10/18/2020 12:00:00 AM EDT 1.0 {tablet} active traMADol HCl 50 MG eCW1 ([facility]) tramadol hydrochloride 50 MG Oral Tablet Tramadol HCl 50 MG Tramadol HCl 50 MG 10/18/2020 12:00:00 AM EDT 1.0 {tablet} active Tramadol HCl 50 MG eCW1 ([facility]) tramadol hydrochloride 50 MG Oral Tablet Tramadol HCl 50 MG Tramadol HCl 50 MG 10/18/2020 12:00:00 AM EDT 1.0 {tablet} active Tramadol HCl 50 MG eCW1 ([facility]) Insurance Providers Payer name Policy type / Coverage type Policy ID Covered republican ID Covered republican's relationship to orozco Policy Orozco Plan Information Medicare Natl [facility] Medicare Primary [id number] Self [id number] Medicare Natl Govt Servic Medicare Primary [id number] Self [id number] Medicare Natl Govt Servic Medicare Primary [id number] Self [id number] [facility] Health Maintenance Organization ([facility]) [id number] Family Dependent Z [id number] [facility] Health Maintenance Organization ([facility]) [id number] Family Dependent Z [id number] [facility] Health Maintenance Organization ([facility]) [id number] Family Dependent Z [id number] [facility] Health Maintenance Organization ([facility]) [id number] Family Dependent [id number] [facility] Health Maintenance Organization ([facility]) [id number] Family Dependent Z [id number] [facility] Health Maintenance Organization ([facility]) [id number] Family Dependent Z [id number] [facility] Health Maintenance Organization ([facility]) [id number] Family Dependent Z [id number] [facility] Health Maintenance Organization ([facility]) [id number] Family Dependent Z [id number] [facility] Health Maintenance Organization ([facility]) [id number] Family Dependent Z [id number] [facility] Health Maintenance Organization ([facility]) Usbpi [id number] Family Dependent U sbpi [facility] Health Maintenance Organization ([facility]) [id number] Family Dependent Z [id number] [facility] Health Maintenance Organization ([facility]) [id number] Family Dependent Z [id number] [facility] Health Maintenance Organization ([facility]) [id number] Family Dependent Z [id number] [place] [employer] Commercial 802 [id number]. [id number] Family Dependent 802 [employer] [place] [employer] Medigap Part B [id number] Family Dependent [id number] [place] [employer] Medigap Part B [id number] Family Dependent [id number] [employer] [place] Commercial 802 [id number]. [id number] Family Dependent 802 [place] [employer] Commercial 802 [id number] [id number] Self 802 [place] [employer] Medigap Part B [id number] Self [id number] [place] [employer] Commercial [id number] Self Y [id number] [place] [employer] Commercial Gold Select [id number] Self G old Select [place] [employer] Medigap Part B [id number] Self [id number] [place] [employer] [id number] 2..[id number] Self Y [id number] [place] [employer] [id number] [id number] Self Y [id number] BS [place] Medigap Part B [id number] 2..[id number] Self Y [id number] [place] [employer] Commercial [id number] [id number] Self Y [id number] BS [place] [employer] Medigap Part B [id number] Self Y [id number] [place] [employer] Medigap Part B [id number] [id number] Self Y [id number] [place] [employer] Medigap Part B [id number] [id number] Self Y [id number] [place] [employer] [id number] [id number] Self Y [id number] [place] [employer] [id number] [id number] Self Y [id number] [place] [employer] [id number] [id number] Self Y [id number] [facility] Solutions Commercial [id number] Self [id number] [facility] Medicare [place] Commercial [id number] Self [id number] [employer] Medicare [place] Commercial [id number] Self [id number] UHC UNITED MEDICARE COMPLETE G [id number] Self [id number] EXCELLUS HMO [id number] Self [id number] [id number] Blue [facility] Medicare P [id number] SELF [id number] [employer] Blue Cross and Blue Shield - [place] Blue Cross/B lue Shield [id number] Self [id number] EXCELLUS MEDICARE BLUE PPO G [id number] Self [id number] [facility](MCAID) O [id number] S [id number] MEDICARE COMPLETE [id number] SP [id number] [facility] [id number] SP [id number] ANSI-Medicare Part B [id number] ANSI-Medicare Part B [id number] ANSI-Medicare Part B [id number] ANSI-Medicare Part B [id number] MEDICARE COMPLETE [id number] SP [id number] [place] [employer] Medigap Part B [id number] [place] [employer] Commercial 802 [id number] 802 Blue Shield Medicare P [id number] SELF [id number] MEDICARE [id number] SP [id number] MEDICARE BLUE PPO 306 [id number] SP [id number] [facility] O [id number] S [id number] [facility] NATHANAEL [id number] SP [id number] [place] 305/805 [id number] SP [id number] EXCELL[employer] BCBS B [id number] S [id number] [place] PPO 302/307 [id number] WI2 [id number] BCBS [place] PPO 302/307 [id number] SP [id number] EXCELLUS BCBS P [id number] S VYS [id number] BCBS [place] PPO 302/307 [id number] WI2 [id number] EXCELL[employer] BCBS P [id number] S VYS [id number] Problems, Conditions, and Diagnoses Code Display Name Description Problem Type Effective Dates Data Source(s) G25.0 Essential tremor Essential tremor Diagnosis 11/03/2020 01 :35:44 PM EDT [facility] R29.6 [id number] Frequent falls Problem 01/25/2021 12:00:00 A M EDT eCW1 ([facility]) M25.551 [id number] Right hip pain Problem 12/27/2020 12:00 :00 AM EDT eCW1 ([facility]) Z68.41 [id number] Body mass index (BMI) of 40.1 to 44.9 in adult Problem 06/29/2020 12:00:00 AM EST [facility] ([facility]) Surgeries/Procedures Procedure Description Date Indications Data Source(s) OFFICE OUTPATIENT NEW 30 MINUTES 05/20/2021 12:00:00 A M CARLYLE NOONAN ([facility], ) Shave Biopsy Of Skin, Single Lesion 03/22/2021 12:00:0 0 AM EDT [facility] ([facility]) OFFICE OUTPATIENT VISIT 25 MINUTES 03/22/2021 12:00:00 AM EDT [facility] ([facility]) OFFICE OUTPATIENT VISIT 25 MINUTES 01/13/2021 12:00:00 AM EDT [facility] ([facility]) DESTRUCTION PREMALIGNANT LESION 1ST 12/07/2020 12:00:0 0 AM EDT [facility] ([facility]) OFFICE OUTPATIENT VISIT 25 MINUTES 12/07/2020 12:00:00 AM EDT [facility] ([facility]) Shave Biopsy Of Skin, Single Lesion 11/17/2020 12:00:0 0 AM EDT [facility] ([facility]) Each Separate/Additional Lesion 11/17/2020 12:00:00 AM EDT [facility] ([facility]) OFFICE OUTPATIENT NEW 45 MINUTES 11/17/2020 12:00:00 [facility] HEAD/BRAIN W/O CONTRAST MATERIAL <td>CT HEAD WITHOU T CONTRAST [id number]</td><td>Routine</td><td>11/03/2020 2:10 PM EDT</td><td> Essential tremor</td><td> </td> 11/03/2020 02:10:02 PM EDT Essential tremor [facility] Essential tremor Results ID Date Data Source [id number] 03/22/2021 03:20:00 PM EDT [facility] ([facility]) Name Value Range Interpretation Code Description Data Tc rce(s) Supporting Document(s) Laboratory test finding (navigational concept) Laboratory test result [facility] ([facility]) ID Date Data Source [id number] 03/02/2021 08:45:00 AM EDT [facility] Name Value Range Interpretation Code Description Data Ct rce(s) Supporting Document(s) SARS-CoV-2 RNA Resp Ql OLIVIA+probe NOT DETECTED [facility] This lab was ordered by DANNIE agee and reported by DANNIE Frazier. ID Date Data Source [id number] 11/17/2020 11:14:00 AM EDT [facility] ([facility]) Name Value Range Interpretation Code Description Data Ct rce(s) Supporting Document(s) Laboratory test finding (navigational concept) Laboratory test result [facility] ([facility]) A) LN2 to any remaining, appt 12/07/20 B) LN2 to any remaining, appt 12/07/20 Laboratory test finding (navigational concept) Laboratory test result [facility] ([facility]) A) LN2 to any remaining, appt 12/07/20 B) LN2 to any remaining, appt 12/07/20 ID Date Data Source [id number] 11/03/2020 02:33:[address] [facility] CT HEAD WITHOUT CONTRAST [id number] RESU LTInterpreted by:Brenda Rodriguez MDHISTORY: Essential tremor.TECHNIQUE: Noncontrast CT head. Automated dose- lowering techniques and/or adjustment according to patient size were utilized for this exam.FINDINGS:There is generalized volume loss with commensurate enlargement of the ventricular system. There is no evidence of acute intracranial bleeding, acute territorial infarct, brain edema or mass effect. No extra-axial fluid collection nor midline shift is seen. The basal cisterns are patent.The calvarium is intact. The left maxillary sinus is almost completely opacified. The remainder of the paranasal sinuses as well as the mastoid air cells are well-aerated.IMPRESSION: No evidence of acute intracranial process.This document has been electronically signed by Brenda Rodriguez MD on 11/03/2020 2:31 PM Name Value Range Interpretation Code Description Data Ct rce(s) Supporting Document(s) ID Date Data Source [id number] 08/18/2020 09:14:00 AM EST [facility] Name Value Range Interpretation Code Description Data Ct rce(s) Supporting Document(s) SARS coronavirus 2 RNA Not Detected [facility] [place] This lab was ordered by [facility] and reported by [email or web address]. ID Date Data Source Coronavirus 2019 Nasopharygeal (Send Out) COVID 08/18/2020 1 2:00:00 AM EST eCW1 ([facility]) Name Value Range Interpretation Code Description Data Ct rce(s) Supporting Document(s) This nucleic acid amplification test was developed and its CORONAVIRUS 2019 NASOPHARYGEAL eCW1 ([facility]) ID Date Data Source Basic Metabolic Profile (BMP) 08/18/2020 12:00:00 AM EST eCW 1 ([facility]) Name Value Range Interpretation Code Description Data Ct rce(s) Supporting Document(s) 100 70-100 GLUCOSE, FASTING eCW1 ([facility]) 0.88 0.70-1.30 CREATININE FOR GFR eCW1 ([facility]) 24 7-18 BLOOD UREA NITROGEN eCW1 ([facility]) 4.2 3.5-5.1 POTASSIUM SERUM eCW1 ([facility]) 141 136-145 SODIUM LEVEL eCW1 ([facility]) > 60.0 >42 GLOMERULAR FILTRATION RATE eCW 1 ([facility]) 103 98-107 CHLORIDE LEVEL eCW1 ([facility]) 31 21-32 CARBON DIOXIDE LEVEL eCW1 ([facility]) 9.6 8.8-10.2 CALCIUM LEVEL eCW1 ([facility]) ID Date Data Source [id number] 08/18/2020 12:00:00 AM EST eCW1 ([facility]) Name Value Range Interpretation Code Description Data Ct rce(s) Supporting Document(s) Hemoglobin A1c/Hemoglobin.total in Blood 5.5 HEMOGLOBIN A1c eCW1 ([facility]) ID Date Data Source CBC - Complete Blood Count 08/18/2020 12:00:00 AM EST eCW1 ( [facility]) Name Value Range Interpretation Code Description Data Ct rce(s) Supporting Document(s) 4.4 4.0-10.0 WHITE BLOOD COUNT eCW1 ([facility]) 14.4 13.5-17.5 HEMOGLOBIN eCW1 ([facility]) 4.30 4.30-6.10 RED BLOOD COUNT eCW1 ([facility]) 42.5 42.0-52.0 HEMATOCRIT eCW1 ([facility]) 33.9 32.0-36.5 MEAN CORPUSCULAR HGB CONC eCW1 ([facility]) 33.5 27.0-33.0 MEAN CORPUSCULAR HEMOGLOB IN eCW1 ([facility]) 12.6 11.5-14.5 RED CELL DISTRIBUTION WID TH eCW1 ([facility]) 98.8 80.0-96.0 MEAN CORPUSCULAR VOLUME e CW1 ([facility]) 161 150-450 PLATELET COUNT, AUTOMATED eCW1 ([facility]) ID Date Data Source [id number] 07/05/2020 12:00:00 AM EST [facility] Name Value Range Interpretation Code Description Data Ct rce(s) Supporting Document(s) SARS coronavirus 2 RNA [Presence] in Res piratory specimen by OLIVIA with probe detection [facility] This lab was ordered by Freddie Miguel and reported by [email or web address]. ID Date Data Source [id number] 07/05/2020 12:00:00 AM EST [facility] Name Value Range Interpretation Code Description Data Ct rce(s) Supporting Document(s) Carestart Rapid COVID Antigen Test [facility] This lab was reported by Freddie torre. Procedure Social History Code Duration Value Status Description Data Source(s ) Smoking 05/20/2021 12:00:00 AM EST Patient is a former smoker completed Patient is a former smoker [facility] ([facility], ) Smoking 04/26/2021 12:00:00 AM EDT Former Smoker completed Former Smoker eCW1 ([facility]) Smoking 04/26/2021 12:00:00 AM EDT Former Smoker completed Former Smoker eCW1 ([facility]) Smoking 04/26/2021 12:00:00 AM EDT Former Smoker completed Former Smoker eCW1 ([facility]) Smoking 04/26/2021 12:00:00 AM EDT Former Smoker completed Former Smoker eCW1 ([facility]) Smoking 04/26/2021 12:00:00 AM EDT Former Smoker completed Former Smoker eCW1 ([facility]) Smoking 04/26/2021 12:00:00 AM EDT Former Smoker completed Former Smoker eCW1 ([facility]) Smoking 04/26/2021 12:00:00 AM EDT Former Smoker completed Former Smoker eCW1 ([facility]) Smoking 01/19/2021 12:00:00 AM EDT Former Smoker completed Former Smoker eCW1 ([facility]) Smoking 01/19/2021 12:00:00 AM EDT Former Smoker completed Former Smoker eCW1 ([facility]) Smoking 01/19/2021 12:00:00 AM EDT Former Smoker completed Former Smoker eCW1 ([facility]) Smoking 01/19/2021 12:00:00 AM EDT Former Smoker completed Former Smoker eCW1 ([facility]) Smoking 01/19/2021 12:00:00 AM EDT Former Smoker completed Former Smoker eCW1 ([facility]) Smoking 01/19/2021 12:00:00 AM EDT Former Smoker completed Former Smoker eCW1 ([facility]) Smoking 01/19/2021 12:00:00 AM EDT Former Smoker completed Former Smoker eCW1 ([facility]) Smoking 01/19/2021 12:00:00 AM EDT Former Smoker completed Former Smoker eCW1 ([facility]) Smoking 01/19/2021 12:00:00 AM EDT Former Smoker completed Former Smoker eCW1 ([facility]) Smoking 01/19/2021 12:00:00 AM EDT Former Smoker completed Former Smoker eCW1 ([facility]) Smoking 01/19/2021 12:00:00 AM EDT Former Smoker completed Former Smoker eCW1 ([facility]) Smoking 01/19/2021 12:00:00 AM EDT Former Smoker completed Former Smoker eCW1 ([facility]) Smoking 01/03/2021 12:00:00 AM EDT Former Smoker completed Former Smoker eCW1 ([facility]) Smoking 12/27/2020 12:00:00 AM EDT Former Smoker completed Former Smoker eCW1 ([facility]) Smoking 10/18/2020 12:00:00 AM EDT Former Smoker completed Former Smoker eCW1 ([facility]) Smoking 10/18/2020 12:00:00 AM EDT Former Smoker completed Former Smoker eCW1 ([facility]) Smoking 10/18/2020 12:00:00 AM EDT Former Smoker completed Former Smoker eCW1 ([facility]) Smoking 10/18/2020 12:00:00 AM EDT Former Smoker completed Former Smoker eCW1 ([facility]) Smoking 10/18/2020 12:00:00 AM EDT Former Smoker completed Former Smoker eCW1 ([facility]) Smoking 10/18/2020 12:00:00 AM EDT Former Smoker completed Former Smoker eCW1 ([facility]) Smoking 10/18/2020 12:00:00 AM EDT Former Smoker completed Former Smoker eCW1 ([facility]) Smoking 10/18/2020 12:00:00 AM EDT Former Smoker completed Former Smoker eCW1 ([facility]) Smoking 10/18/2020 12:00:00 AM EDT Former Smoker completed Former Smoker eCW1 ([facility]) Smoking 10/18/2020 12:00:00 AM EDT Former Smoker completed Former Smoker eCW1 ([facility]) Smoking 10/18/2020 12:00:00 AM EDT Former Smoker completed Former Smoker eCW1 ([facility]) Smoking 08/18/2020 12:00:00 AM EST Former Smoker completed Former Smoker eCW1 ([facility]) Smoking 08/18/2020 12:00:00 AM EST Former Smoker completed Former Smoker eCW1 ([facility]) Smoking 08/18/2020 12:00:00 AM EST Former Smoker completed Former Smoker eCW1 ([facility]) Smoking 08/18/2020 12:00:00 AM EST Former Smoker completed Former Smoker eCW1 ([facility]) Smoking 08/18/2020 12:00:00 AM EST Former Smoker completed Former Smoker eCW1 ([facility]) Smoking 08/18/2020 12:00:00 AM EST Former Smoker completed Former Smoker eCW1 ([facility]) Smoking 08/18/2020 12:00:00 AM EST Former Smoker completed Former Smoker eCW1 ([facility]) Smoking 08/18/2020 12:00:00 AM EST Former Smoker completed Former Smoker eCW1 ([facility]) Smoking 08/18/2020 12:00:00 AM EST Former Smoker completed Former Smoker eCW1 ([facility]) Smoking 08/18/2020 12:00:00 AM EST Former Smoker completed Former Smoker eCW1 ([facility]) Smoking 08/18/2020 12:00:00 AM EST Former Smoker completed Former Smoker eCW1 ([facility]) Smoking 08/18/2020 12:00:00 AM EST Former Smoker completed Former Smoker eCW1 ([facility]) Smoking 08/18/2020 12:00:00 AM EST Former Smoker completed Former Smoker eCW1 ([facility]) Smoking 06/29/2020 12:00:00 AM EST Former Smoker completed Former Smoker eCW1 ([facility]) Vital Signs ID Date Data Source UNK Name Value Range Interpretation Code Description Data Source(s) Diastolic blood pressure 74 mm[Hg] 74 mm[Hg] [facility] ([facility]) Body weight 272.00 [lb_av] 272.00 [lb_av] MED[facility] T ([facility]) Systolic blood pressure 120 mm[Hg] 120 mm[Hg] M [facility] ([facility]) Heart rate 74 /min 74 /min [facility] ([facility]) Oxygen saturation in Arterial blood by Pulse oximetry 93 % 93 % [facility] ([facility]) Body height 71 [in_i] 71 [in_i] [facility] ([facility]) 5'11" Body mass index (BMI) [Ratio] 37.9 kg/m2 37.9 k g/m2 [facility] ([facility]) [place] body weight 172 [lb_av] 172 [lb_av] MED[facility] T ([facility]) Body weight 123.379 kg 123.379 kg [facility] ([facility]) Body surface area Derived from formula 2.40 m2 2.40 m2 [facility] ([facility]) Body weight 285.6 [lb_av] 285.6 [lb_av] eCW1 ([facility]) Body weight 129.55 kg 129.55 kg W1 ([facility]) Body height 70 [in_i] 70 [in_i] W1 ([facility]) Body mass index (BMI) [Ratio] 40.97 kg/m2 40.97 kg/m2 [facility] ([facility]) Heart rate 74 /min 74 /min eCW1 ([facility]) Respiratory rate 20 /min 20 /min eCW1 ([facility]) Body temperature 98.3 [degF] 98.3 [degF] eCW1 ( [facility]) Systolic blood pressure 126 mm[Hg] 126 mm[Hg] e CW1 ([facility]) Diastolic blood pressure 68 mm[Hg] 68 mm[Hg] eCW1 ([facility]) Systolic blood pressure 152 mm[Hg] 152 mm[Hg] M [facility]ENT ([facility]) Diastolic blood pressure 69 mm[Hg] 69 mm[Hg] [facility] ([facility]) Body weight 286.00 [lb_av] 286.00 [lb_av] MEDEN T ([facility]) Body height 71 [in_i] 71 [in_i] [facility] ([facility]) 5'11" Body mass index (BMI) [Ratio] 39.9 kg/m2 39.9 k g/m2 [facility] ([facility]) Body weight 291 [lb_av] 291 [lb_av] eCW1 ([facility]) Body height 70 [in_i] 70 [in_i] eCW1 ([facility]) Body mass index (BMI) [Ratio] 41.75 kg/m2 41.75 kg/m2 W1 ([facility]) Heart rate 67 /min 67 /min eCW1 ([facility]) Respiratory rate 20 /min 20 /min W1 ([facility]) Body temperature 97 [degF] 97 [degF] eCW1 ([facility]) Systolic blood pressure 130 mm[Hg] 130 mm[Hg] e CW1 ([facility]) Diastolic blood pressure 66 mm[Hg] 66 mm[Hg] eCW1 ([facility]) Systolic blood pressure 122 mm[Hg] 122 mm[Hg] M EDENT ([facility]) Diastolic blood pressure 64 mm[Hg] 64 mm[Hg] MEDENT ([facility]) Body weight 290.00 [lb_av] 290.00 [lb_av] MEDEN T ([facility]) Respiratory rate 17 /min 17 /min MEDENT ( [facility]) Body weight 290.00 [lb_av] 290.00 [lb_av] MEDEN T ([facility]) Respiratory rate 17 /min 17 /min MEDENT ( [facility]) Body weight 287.6 [lb_av] 287.6 [lb_av] eCW1 (Formerly [facility], 1928–1983) Body height 70 [in_i] 70 [in_i] eCW1 ([facility]) Body mass index (BMI) [Ratio] 41.26 kg/m2 41.26 kg/m2 eCW1 ([facility]) Heart rate 78 /min 78 /min eCW1 ([facility]) Respiratory rate 20 /min 20 /min eCW1 ([facility]) Body temperature 98.9 [degF] 98.9 [degF] eCW1 ( [facility]) Systolic blood pressure 144 mm[Hg] 144 mm[Hg] e CW1 ([facility]) Diastolic blood pressure 72 mm[Hg] 72 mm[Hg] eCW1 ([facility]) Systolic blood pressure 120 mm[Hg] 120 mm[Hg] M EDENT ([facility]) Diastolic blood pressure 70 mm[Hg] 70 mm[Hg] MEDENT ([facility]) Body weight 290.00 [lb_av] 290.00 [lb_av] MEDEN T ([facility]) Respiratory rate 18 /min 18 /min MEDENT ( [facility]) Body weight 293 [lb_av] 293 [lb_av] eCW1 (Formerly [facility], [facility]) Body height 70 [in_i] 70 [in_i] eCW1 ([facility]) Body mass index (BMI) [Ratio] 42.04 kg/m2 42.04 kg/m2 eCW1 ([facility]) Heart rate 72 /min 72 /min eCW1 ([facility]) Respiratory rate 18 /min 18 /min eCW1 ([facility]) Body temperature 98.8 [degF] 98.8 [degF] eCW1 ( [facility]) Systolic blood pressure 130 mm[Hg] 130 mm[Hg] e CW1 ([facility]) Diastolic blood pressure 70 mm[Hg] 70 mm[Hg] eCW1 ([facility]) Body weight 282 [lb_av] 282 [lb_av] eCW1 (Formerly [facility], [facility]) Body height 70 [in_i] 70 [in_i] eCW1 ([facility]) Body mass index (BMI) [Ratio] 40.46 kg/m2 40.46 kg/m2 eCW1 ([facility]) Heart rate 78 /min 78 /min eCW1 ([facility]) Respiratory rate 18 /min 18 /min eCW1 ([facility]) Body temperature 96.4 [degF] 96.4 [degF] eCW1 ( [facility]) Systolic blood pressure 142 mm[Hg] 142 mm[Hg] e CW1 ([facility]) Diastolic blood pressure 70 mm[Hg] 70 mm[Hg] eCW1 ([facility]) Body weight 285 [lb_av] 285 [lb_av] eCW1 ([facility]ly [facility], [facility]) Body height 70 [in_i] 70 [in_i] eCW1 ([facility]) Body mass index (BMI) [Ratio] 40.89 kg/m2 40.89 kg/m2 eCW1 ([facility]) Heart rate 88 /min 88 /min eCW1 ([facility]) Respiratory rate 18 /min 18 /min eCW1 ([facility]) Body temperature 99 [degF] 99 [degF] eCW1 ([facility]) Systolic blood pressure 160 mm[Hg] 160 mm[Hg] e CW1 ([facility]) Diastolic blood pressure 88 mm[Hg] 88 mm[Hg] eCW1 ([facility]) Patient Treatment Plan of Care Planned Activity Planned Date Details Description Data Source (s) Azithromycin 250 MG Oral Tablet [Zithromax] 05/03/2021 12:00:00 AM EDT eCW1 ([facility]) Azithromycin 250 MG Oral Tablet [Zithromax] 05/03/2021 12:00:00 AM EDT eCW1 ([facility]) Azithromycin 250 MG Oral Tablet [Zithromax] 05/03/2021 12:00:00 AM EDT eCW1 ([facility]) Azithromycin 250 MG Oral Tablet [Zithromax] 05/03/2021 12:00:00 AM EDT eCW1 ([facility]) Azithromycin 250 MG Oral Tablet [Zithromax] 05/03/2021 12:00:00 AM EDT eCW1 ([facility]) tramadol hydrochloride 50 MG Oral Tablet 04/26/2021 12:00:00 AM EDT eCW1 ([facility]) Cephalexin 500 MG Oral Tablet 04/26/2021 12:00:00 AM EDT eCW1 ([facility]) tramadol hydrochloride 50 MG Oral Tablet 04/26/2021 12:00:00 AM EDT eCW1 ([facility]) Cephalexin 500 MG Oral Tablet 04/26/2021 12:00:00 AM EDT eCW1 ([facility]) tramadol hydrochloride 50 MG Oral Tablet 04/26/2021 12:00:00 AM EDT eCW1 ([facility]) Cephalexin 500 MG Oral Tablet 04/26/2021 12:00:00 AM EDT eCW1 ([facility]) tramadol hydrochloride 50 MG Oral Tablet 04/26/2021 12:00:00 AM EDT eCW1 ([facility]) Cephalexin 500 MG Oral Tablet 04/26/2021 12:00:00 AM EDT eCW1 ([facility]) tramadol hydrochloride 50 MG Oral Tablet 04/26/2021 12:00:00 AM EDT eCW1 ([facility]) Cephalexin 500 MG Oral Tablet 04/26/2021 12:00:00 AM EDT eCW1 ([facility]) tramadol hydrochloride 50 MG Oral Tablet 04/26/2021 12:00:00 AM EDT eCW1 ([facility]) Cephalexin 500 MG Oral Tablet 04/26/2021 12:00:00 AM EDT eCW1 ([facility]) tramadol hydrochloride 50 MG Oral Tablet 04/26/2021 12:00:00 AM EDT eCW1 ([facility]) Cephalexin 500 MG Oral Tablet 04/26/2021 12:00:00 AM EDT eCW1 ([facility]) tramadol hydrochloride 50 MG Oral Tablet 03/30/2021 12:00:00 AM EDT eCW1 ([facility]) tramadol hydrochloride 50 MG Oral Tablet 03/30/2021 12:00:00 AM EDT eCW1 ([facility]) duloxetine 20 MG Delayed Release Oral Capsule 01/03/2021 12:00:00 A M EDT eCW1 ([facility]) duloxetine 20 MG Delayed Release Oral Capsule 01/03/2021 12:00:00 A M EDT eCW1 ([facility]) duloxetine 20 MG Delayed Release Oral Capsule 01/03/2021 12:00:00 A M EDT eCW1 ([facility]) duloxetine 20 MG Delayed Release Oral Capsule 01/03/2021 12:00:00 A M EDT eCW1 ([facility]) duloxetine 20 MG Delayed Release Oral Capsule 01/03/2021 12:00:00 A M EDT eCW1 ([facility]) duloxetine 20 MG Delayed Release Oral Capsule 01/03/2021 12:00:00 A M EDT eCW1 ([facility]) duloxetine 20 MG Delayed Release Oral Capsule 01/03/2021 12:00:00 A M EDT eCW1 ([facility]) duloxetine 20 MG Delayed Release Oral Capsule 01/03/2021 12:00:00 A M EDT eCW1 ([facility]) duloxetine 20 MG Delayed Release Oral Capsule 01/03/2021 12:00:00 A M EDT eCW1 ([facility]) duloxetine 20 MG Delayed Release Oral Capsule 01/03/2021 12:00:00 A M EDT eCW1 ([facility]) duloxetine 20 MG Delayed Release Oral Capsule 01/03/2021 12:00:00 A M EDT eCW1 ([facility]) duloxetine 20 MG Delayed Release Oral Capsule 01/03/2021 12:00:00 A M EDT eCW1 ([facility]) duloxetine 20 MG Delayed Release Oral Capsule 01/03/2021 12:00:00 A M EDT eCW1 ([facility]) duloxetine 20 MG Delayed Release Oral Capsule 01/03/2021 12:00:00 A M EDT eCW1 ([facility]) duloxetine 20 MG Delayed Release Oral Capsule 01/03/2021 12:00:00 A M EDT eCW1 ([facility]) tramadol hydrochloride 50 MG Oral Tablet 10/18/2020 12:00:00 AM EDT eCW1 ([facility]) tramadol hydrochloride 50 MG Oral Tablet 10/18/2020 12:00:00 AM EDT eCW1 ([facility]) tramadol hydrochloride 50 MG Oral Tablet 10/18/2020 12:00:00 AM EDT eCW1 ([facility]) tramadol hydrochloride 50 MG Oral Tablet 10/18/2020 12:00:00 AM EDT eCW1 ([facility]) tramadol hydrochloride 50 MG Oral Tablet 10/18/2020 12:00:00 AM EDT eCW1 ([facility]) tramadol hydrochloride 50 MG Oral Tablet 10/18/2020 12:00:00 AM EDT eCW1 ([facility]) tramadol hydrochloride 50 MG Oral Tablet 10/18/2020 12:00:00 AM EDT eCW1 ([facility]) tramadol hydrochloride 50 MG Oral Tablet 10/18/2020 12:00:00 AM EDT eCW1 ([facility]) tramadol hydrochloride 50 MG Oral Tablet 10/18/2020 12:00:00 AM EDT eCW1 ([facility]) tramadol hydrochloride 50 MG Oral Tablet 10/18/2020 12:00:00 AM EDT eCW1 ([facility]) tramadol hydrochloride 50 MG Oral Tablet 10/18/2020 12:00:00 AM EDT eCW1 ([facility]) tramadol hydrochloride 50 MG Oral Tablet 10/18/2020 12:00:00 AM EDT eCW1 ([facility]) tramadol hydrochloride 50 MG Oral Tablet 10/18/2020 12:00:00 AM EDT eCW1 ([facility]) tramadol hydrochloride 50 MG Oral Tablet 10/18/2020 12:00:00 AM EDT eCW1 ([facility]) tramadol hydrochloride 50 MG Oral Tablet 10/18/2020 12:00:00 AM EDT eCW1 ([facility]) tramadol hydrochloride 50 MG Oral Tablet 10/18/2020 12:00:00 AM EDT eCW1 ([facility]) tramadol hydrochloride 50 MG Oral Tablet 10/18/2020 12:00:00 AM EDT eCW1 ([facility]) tramadol hydrochloride 50 MG Oral Tablet 10/18/2020 12:00:00 AM EDT eCW1 ([facility])
--- OUTSIDE RECORDS SUMMARY | 2021-05-25 14:15 | CCD ---
Author Author [facility] Organization [facility] Address Unknown Phone Unavailable Care Team Providers Care Strip Tank Tender Name Role Phone SYSTEM IN, NOT IN PROVIDER Unavailable Unavailable LAROCK, Gabi WILSON NP Unavailable [...] Unavailable LAROCK, Gabi WILSON NP Unavailable Unavailable Quinones, D Janice IMPLEMENTATION ANALYST-C Unavailable Unavailable Quinones, D Janice IMPLEMENTATION ANALYST-C Unavailable Unavailable Quinones, D Janice IMPLEMENTATION ANALYST-C Unavailable Unavailable Quinones, D Janice IMPLEMENTATION ANALYST-C Unavailable Unavailable Quinones, D Janice IMPLEMENTATION ANALYST-C Unavailable Unavailable Quinones, D Janice IMPLEMENTATION ANALYST-C Unavailable Unavailable Quinones, D Janice IMPLEMENTATION ANALYST-C Unavailable Unavailable JasVictorina MD Unavailable Unavailable JasVictorina MD Unavailable Unavailable O'BrienVictorina MD Unavailable Unavailable O'BrienVictorina MD Unavailable Unavailable JasVictorina MD Unavailable Unavailable O'BrienVictorina MD Unavailable Unavailable O'BrienVictorina MD Unavailable Unavailable JasVictorina MD Unavailable Unavailable O'BrienVictorina MD Unavailable Unavailable JasVictorina MD Unavailable Unavailable JasVictorina MD Unavailable Unavailable O'BrienVictorina MD Unavailable Unavailable O'BrienVictorina MD Unavailable Unavailable JasVictorina MD Unavailable Unavailable JasVictorina MD Unavailable Unavailable O'BrienVictorina MD Unavailable Unavailable JasVictorina MD Unavailable Unavailable JasVictorina MD Unavailable Unavailable O'BrienVictorina MD Unavailable Unavailable O'BrienVictorina MD Unavailable Unavailable JasVictorina MD Unavailable Unavailable O'BrienVictorina MD Unavailable Unavailable O'BrienVictorina MD Unavailable Unavailable O'BrienVictorina MD Unavailable Unavailable O'BrienVictorina MD Unavailable Unavailable JasVictorina MD Unavailable Unavailable O'BrienVictorina MD Unavailable Unavailable JasVictorina MD Unavailable Unavailable JasVictorina MD Unavailable Unavailable O'BrienVictorina MD Unavailable Unavailable JasVictorina MD Unavailable Unavailable O'BrienVictorina MD Unavailable Unavailable JasVictorina MD Unavailable Unavailable O'BrienVictorina MD Unavailable Unavailable JasVictorina khanna MD Unavailable Unavailable O'BrienVictorina khanna MD Unavailable Unavailable JasVictorina MD Unavailable Unavailable O'BrienVictorina khanna MD Unavailable Unavailable O'BrienVictorina MD Unavailable Unavailable O'BrienVictorina MD Unavailable Unavailable O'BrienVictorina MD Unavailable Unavailable JasVictorina khanna MD Unavailable Unavailable O'BrienVictorina MD Unavailable Unavailable O'BrienVictorina MD Unavailable Unavailable O'BrienVictorina MD Unavailable Unavailable O'BrienVictorina MD Unavailable Unavailable JasVictorina MD Unavailable Unavailable JasVictorina MD Unavailable Unavailable O'BrienVictorina MD Unavailable Unavailable O'BrienVictorina MD Unavailable Unavailable JasVictorina MD Unavailable Unavailable JasVictorina MD Unavailable Unavailable JasVictorina MD Unavailable Unavailable JasVictorina MD Unavailable Unavailable O'BrienVictorina MD Unavailable Unavailable JasVictorina MD Unavailable Unavailable JasVictorina MD Unavailable Unavailable JasVictorina MD Unavailable Unavailable JasVictorina MD Unavailable Unavailable Jas, Victorina Brad MD Unavailable Unavailable Jas, Victorina Salinas MD Unavailable Unavailable JasVictorina MD Unavailable Unavailable JasVictorina MD Unavailable Unavailable Jas Victorina Brad MALDONADO Unavailable Unavailable O'BrienVictorina MD Unavailable Unavailable O'BrienVictorina MD Unavailable Unavailable O'Brien, Victorina Brad MALDONADO Unavailable Unavailable O'Brien Victorina Brad MALDONADO Unavailable Unavailable O'Brien Victorina Brad MALDONADO Unavailable Unavailable Jas Victorina Brad MALDONADO Unavailable Unavailable Jas Victorina Brad MALDONADO Unavailable Unavailable O'Brien Victorina Brad MALDONADO Unavailable Unavailable Jas Victorina Brad MALDONADO Unavailable Unavailable O'Brien, Victorina Brad MD Unavailable Unavailable Jas, Victorina Brad MALDONADO Unavailable Unavailable Jas Victorina Brad MALDONADO Unavailable Unavailable O'Brien Victorina Brad MALDONADO Unavailable Unavailable O'Brien Victorina Brad MALDONADO Unavailable Unavailable O'BrienVictorina MD Unavailable Unavailable Jas Victorina Brad MALDONADO Unavailable Unavailable Jas Victorina Brad MALDONADO Unavailable Unavailable Jas Victorina Brad MALDONADO Unavailable Unavailable Jas Victorina Brad MALDONADO Unavailable Unavailable O'Brien Victorina Brad MALDONADO Unavailable Unavailable Jas Victorina Brad MALDONADO Unavailable Unavailable O'Brien, Victorina Brad MD Unavailable Unavailable SUZANNA, RAY CARLOS IMPLEMENTATION ANALYST-C Unavailable Unavailable SUZANNA, RAY CARLOS IMPLEMENTATION ANALYST-C Unavailable Unavailable SUZANNA, RAY CARLOS IMPLEMENTATION ANALYST-C Unavailable Unavailable SUZANNA, RAY CARLOS IMPLEMENTATION ANALYST-C Unavailable Unavailable SUZANNA, RAY CARLOS IMPLEMENTATION ANALYST-C Unavailable Unavailable SUZANNA, RAY CARLOS IMPLEMENTATION ANALYST-C Unavailable Unavailable SUZANNA, RAY CARLOS IMPLEMENTATION ANALYST-C Unavailable Unavailable SUZANNA, RAY CARLOS IMPLEMENTATION ANALYST-C Unavailable Unavailable SUZANNA, RAY CARLOS IMPLEMENTATION ANALYST-C Unavailable Unavailable SUZANNA, RAY CARLOS IMPLEMENTATION ANALYST-C Unavailable Unavailable SUZANNA, RAY CARLOS IMPLEMENTATION ANALYST-C Unavailable Unavailable SUZANNA, RAY CARLOS IMPLEMENTATION ANALYST-C Unavailable Unavailable SUZANNA, RAY CARLOS IMPLEMENTATION ANALYST-C Unavailable Unavailable SUZANNA, RAY CARLOS IMPLEMENTATION ANALYST-C Unavailable Unavailable SUZANNA, RAY CARLOS IMPLEMENTATION ANALYST-C Unavailable Unavailable SUZANNA, RAY CARLOS IMPLEMENTATION ANALYST-C Unavailable Unavailable SUZANNARAYA IMPLEMENTATION ANALYST-C Unavailable Unavailable Milburn, Alvina IMPLEMENTATION ANALYST Unavailable Unavailable Milburn, Alvina IMPLEMENTATION ANALYST Unavailable Unavailable Milburn, Alvina IMPLEMENTATION ANALYST Unavailable Unavailable Milburn, Alvina IMPLEMENTATION ANALYST Unavailable Unavailable Milburn, Alvina IMPLEMENTATION ANALYST Unavailable Unavailable Milburn, Alvina IMPLEMENTATION ANALYST Unavailable Unavailable Milburn, Alvina IMPLEMENTATION ANALYST Unavailable Unavailable Milburn, Alvina IMPLEMENTATION ANALYST Unavailable Unavailable Milburn, Alvina IMPLEMENTATION ANALYST Unavailable Unavailable Milburn, Alvina IMPLEMENTATION ANALYST Unavailable Unavailable Milburn, Alvina IMPLEMENTATION ANALYST Unavailable Unavailable Milburn, Alvina IMPLEMENTATION ANALYST Unavailable Unavailable Milburn, Alvina IMPLEMENTATION ANALYST Unavailable Unavailable Milburn, Alvina IMPLEMENTATION ANALYST Unavailable Unavailable Milburn, Alvina IMPLEMENTATION ANALYST Unavailable Unavailable Milburn, Alvina IMPLEMENTATION ANALYST Unavailable Unavailable Milburn, Alvina IMPLEMENTATION ANALYST Unavailable Unavailable Milburn, Alvina IMPLEMENTATION ANALYST Unavailable Unavailable Milburn, Alvina IMPLEMENTATION ANALYST Unavailable Unavailable Milburn, Alvina IMPLEMENTATION ANALYST Unavailable Unavailable Milburn, Alvina IMPLEMENTATION ANALYST Unavailable Unavailable Milburn, Alvina IMPLEMENTATION ANALYST Unavailable Unavailable Milburn, Alvina IMPLEMENTATION ANALYST Unavailable Unavailable Milburn, Alvina IMPLEMENTATION ANALYST Unavailable Unavailable Milburn, Alvina IMPLEMENTATION ANALYST Unavailable Unavailable Milburn, Alvina IMPLEMENTATION ANALYST Unavailable Unavailable Milburn, Alvina IMPLEMENTATION ANALYST Unavailable Unavailable Milburn, Alvina IMPLEMENTATION ANALYST Unavailable Unavailable Milburn, Alvina IMPLEMENTATION ANALYST Unavailable Unavailable Milburn, Alvina IMPLEMENTATION ANALYST Unavailable Unavailable Milburn, Alvina IMPLEMENTATION ANALYST Unavailable Unavailable Milburn, Alvina IMPLEMENTATION ANALYST Unavailable Unavailable Milburn, Alvina IMPLEMENTATION ANALYST Unavailable Unavailable Milburn, Alvina IMPLEMENTATION ANALYST Unavailable Unavailable Milburn, Alvina IMPLEMENTATION ANALYST Unavailable Unavailable Milburn, Alvina IMPLEMENTATION ANALYST Unavailable Unavailable MD JEREMIE MIRANDA Unavailable Unavailable [...] is protected by Article 27-F of the [facility] Public Health law. If you continue you may have access to information: Regarding HIV / AIDS; Provided by facilities licensed or operated by the [facility] Office of Mental Health; or Provided by the [facility] Office for People With Developmental Disabilities. If such information is present, then the following [facility] mandated warning applies: This information has been [...] law may result in a fine or fci sentence or both. A general authorization for the release of medical or other information is NOT sufficient authorization for further disc losure. Allergies and Adverse Reactions Type Description Substance Reaction Status Data Source(s ) Propensity to adverse reactions NO KNOWN ALLERGIES NO KNOWN ALLERGIES [facility] Propensity to adverse reactions NO KNOWN ALLERGIES NO KNOWN ALLERGIES [facility] Family History Family Member Name Family Member Gender Family Member Status Date o f Status Description Data Source(s) Unknown Female Problem (finding) 11/24/2016 12:00:00 AM EDT [facility] ([facility]) Unknown Female Problem (finding) 11/24/2016 12:00:00 AM EDT [facility] ([facility]) Unknown Female Problem (finding) 11/24/2013 12:00:00 AM EDT [facility] ([facility]) Unknown Male Problem MEDENT ([facility]) Encounters Encounter Providers Location Date Indications Data Source(s ) Outpatient Attender: CARLOS Luis/Nilo/Julio/Naveen marshall 05/20/2021 07:00:00 AM EST [facility] ([facility]) [place] [address] [facility] [address] 05/11/2021 12:00:00 AM EDT eCW1 ([facility]) [place] [address] [facility] [address] 05/11/2021 12:00:00 AM EDT eCW1 ([facility]) [place] [address] [facility] [address] 05/02/2021 12:00:00 AM EDT [facility]CW1 [facility]) [place] [address] [facility] [address] 05/01/2021 12:00:00 AM EDT eCW1 ([facility]) Office Visit, Est Pt., Level 3 PC [address] [place] [address] 04/26/2021 12:00:00 AM EDT eCW1 ([facility]) [place] [address] [facility] [address] 04/22/2021 12:00:00 AM EDT eCW1 ([facility]) [place] [address] [address] 04/18/2021 12:00:00 AM EDT eCW1 ([facility]) [place] [address] [facility] [address] 03/30/2021 12:00:00 AM EDT eCW1 ([facility]) [place] [address] [facility] [address] 03/24/2021 12:00:00 AM EDT eCW1 ([facility]) Outpatient Attender: Janice GUNNP-C Main Office 03/22/2021 02:30:00 PM EDT [facility] ([facility]) [place] [address] [facility] [address] 03/10/2021 12:00:00 AM EDT eCW1 ([facility]) [place] [address] [facility] [address] 03/03/2021 12:00:00 AM EDT eCW1 ([facility]) Outpatient Attender: STEVE PERALTA NP 02/07 08:28:05 AM EDT - 03/02/2021 09:30:06 AM EDT [facility] ([facility] ) [place] [address] [address] 02/22/2021 12:00:00 AM EDT eCW1 ([facility]) [place] [address] [facility] [address] 02/03/2021 12:00:00 AM EDT eCW1 ([facility]) Unknown [address] [facility] [address] 01/26/2021 12:00:00 AM EDT eCW1 ([facility]) [place] [address] [facility] [facility] [address] 01/24/2021 12:00:00 AM EDT eCW1 ([facility]) Unknown [address] [facility] [facility] [address] 01/21/2021 12:00:00 AM EDT eCW1 ([facility]) [place] [address] [facility] [facility] [address] 01/19/2021 12:00:00 AM EDT eCW1 ([facility]) [place] [address] [facility] [facility] [address] 01/19/2021 12:00:00 AM EDT [facility]CW1 [facility] Outpatient Attender: Mirta Mason [facility] Main Office 01/13/2021 11:30:00 AM EDT MEDENT ([facility]) [place] [address] [facility] [facility] [address] 01/03/2021 12:00:00 AM EDT eCW1 ([facility]) [place] [address] [facility] [facility] [address] 12/27/2020 12:00:00 AM EDT eCW1 ([facility]) [place] [address] [facility] [address] 12/14/2020 12:00:00 AM EDT eCW1 ([facility]) Outpatient Attender: MD JEREMIE MIRANDAReferrer: Kenney Mark MD [id number] 12/13/2020 12:00:00 AM EDT [facility] Patient discharged. Outpatient Attender: Janice Quinones IMPLEMENTATION ANALYST-C Main Office 12/07/2020 09:15:00 AM EDT [facility] ([facility]) [place] [address] [facility] [facility] [address] 11/23/2020 12:00:00 AM EDT eCW1 ([facility]) [place] [address] [facility] [address] 11/22/2020 12:00:00 AM EDT eCW1 ([facility]) Unknown [address] [facility] [address] 11/22/2020 12:00:00 AM EDT eCW1 ([facility]) Outpatient Attender: Janice Quinones IMPLEMENTATION ANALYST-C Main Office 11/17/2020 10:30:00 AM EDT [facility] ([facility]) [place] [address] [facility] [facility] [address] 11/17/2020 12:00:00 AM EDT eCW1 ([facility]) Outpatient Referrer: PROVIDER SYSTEM IN 11/03/2020 1 2:00:00 AM EDT Essential tremor [facility] Essential tremor Outpatient Attender: MD JEREMIE MIRANDAReferrer: Kenney Mark MD [id number] 11/01/2020 12:00:00 AM EDT [facility] Patient discharged. [place] [address] [facility] [facility] [address] 10/25/2020 12:00:00 AM EDT eCW1 ([facility]) [place] [address] [facility] [facility] [address] 10/21/2020 12:00:00 AM EDT eCW1 ([facility]) Office Visit, Est Pt., Level 3 PC [address] [place] [address] 10/18/2020 12:00:00 AM EDT eCW1 ([facility]) Unknown [address] [facility] [facility] [address] 10/16/2020 12:00:00 AM EDT eCW1 ([facility]) [place] [address] [facility] [facility] [address] 10/14/2020 12:00:00 AM EDT eCW1 ([facility]) Unknown [address] [facility] [facility] [address] 09/28/2020 12:00:00 AM EDT eCW1 ([facility]) [place] [address] [facility] [facility] [address] 08/30/2020 12:00:00 AM EST eCW1 ([facility]) [place] [address] [place] [address] 08/26/2020 12:00:00 AM EST eCW1 ([facility]) [place] [address] [facility] [facility] [address] 08/25/2020 12:00:00 AM EST eCW1 ([facility]) [place] [address] [facility] [facility] [address] 08/24/2020 12:00:00 AM EST eCW1 ([facility]) [place] [address] [facility] [facility] [address] 08/24/2020 12:00:00 AM EST eCW1 ([facility]) [place] [address] [facility] [facility] [address] 08/23/2020 12:00:00 AM EST eCW1 ([facility]) [place] [address] [facility] [place] [address] 08/23/2020 12:00:00 AM EST eCW1 ([facility]) [place] [address] [facility] [facility] [address] 08/20/2020 12:00:00 AM EST eCW1 ([facility]) [place] [address] [facility] [facility] [address] 08/19/2020 12:00:00 AM EST eCW1 ([facility]) [place] [address] [facility] [facility] [address] 08/18/2020 12:00:00 AM EST eCW1 ([facility]) [place] [address] [facility] [facility] [address] 08/18/2020 12:00:00 AM EST [facility]CW1 [facility] [place] [address] [facility] [address] 07/27/2020 12:00:00 AM EST eCW1 ([facility]) Attender: ROWDY VERONICA MD [facility] 07/20/2020 07:07:00 PM EST - 07/20/2020 07:07:00 PM EST [facility] ( [facility]) [place] [address] [facility] [address] 07/16/2020 12:00:00 AM EST eCW1 ([facility]) [place] [address] [facility] [address] 06/29/2020 12:00:00 AM EST eCW1 ([facility]) [place] [address] [facility] [facility] [address] 06/29/2020 12:00:00 AM EST [facility]CW1 [facility]) [place] [address] [facility] [address] 05/14/2020 12:00:00 AM EST eCW1 ([facility]) [place] [address] [facility] [facility] [address] 04/25/2020 12:00:00 AM EDT eCW1 ([facility]) Immunizations Vaccine Date Status Description Data Source(s) COVID-19 VACCINE Moderna 05/06/2021 12:00:00 AM EDT completed [employer] Vaccine Series Complete: YESThis Data wa s Submitted to [facility] Via [employer]. COVID-19 VACCINE Moderna 09/08/2020 12:00:00 AM EST completed [employer] Vaccine Series Complete: YESThis Data wa s Submitted to [facility] Via [employer] COVID-19 dose #1 given elsewhere Unspecified 08/11/2020 05:0 1:00 PM EST completed eCW1 ([facility]) COVID-19 dose #1 given elsewhere Unspecified 08/11/2020 05:0 1:00 PM EST completed eCW1 ([facility]) COVID-19 dose #1 given elsewhere Unspecified 08/11/2020 05:0 1:00 PM EST completed eCW1 ([facility]) COVID-19 dose #1 given elsewhere Unspecified 08/11/2020 05:0 1:00 PM EST completed eCW1 ([facility]) COVID-19 dose #1 given elsewhere Unspecified 08/11/2020 05:0 1:00 PM EST completed eCW1 ([facility]) COVID-19 dose #1 given elsewhere Unspecified 08/11/2020 05:0 1:00 PM EST completed eCW1 ([facility]) COVID-19 dose #1 given elsewhere Unspecified 08/11/2020 05:0 1:00 PM EST completed eCW1 ([facility]) COVID-19 dose #1 given elsewhere Unspecified 08/11/2020 05:0 1:00 PM EST completed [facility]CW1 ([facility]) COVID-19 dose #1 given elsewhere Unspecified 08/11/2020 05:0 1:00 PM EST completed eCW1 ([facility]) COVID-19 dose #1 given elsewhere Unspecified 08/11/2020 05:0 1:00 PM EST completed eCW1 ([facility]) COVID-19 dose #1 given elsewhere Unspecified 08/11/2020 05:0 1:00 PM EST completed eCW1 ([facility]) COVID-19 dose #1 given elsewhere Unspecified 08/11/2020 05:0 1:00 PM EST completed eCW1 ([facility]) COVID-19 dose #1 given elsewhere Unspecified 08/11/2020 05:0 1:00 PM EST completed eCW1 ([facility]) COVID-19 dose #1 given elsewhere Unspecified 08/11/2020 05:0 1:00 PM EST completed eCW1 ([facility]) COVID-19 dose #1 given elsewhere Unspecified 08/11/2020 05:0 1:00 PM EST completed eCW1 ([facility]) COVID-19 dose #1 given elsewhere Unspecified 08/11/2020 05:0 1:00 PM EST completed eCW1 ([facility]) COVID-19 dose #1 given elsewhere Unspecified 08/11/2020 05:0 1:00 PM EST completed eCW1 ([facility]) COVID-19 dose #1 given elsewhere Unspecified 08/11/2020 05:0 1:00 PM EST completed eCW1 ([facility]) COVID-19 dose #1 given elsewhere Unspecified 08/11/2020 05:0 1:00 PM EST completed eCW1 ([facility]) COVID-19 dose #1 given elsewhere Unspecified 08/11/2020 05:0 1:00 PM EST completed eCW1 ([facility]) COVID-19 dose #1 given elsewhere Unspecified 08/11/2020 05:0 1:00 PM EST completed eCW1 ([facility]) COVID-19 dose #1 given elsewhere Unspecified 08/11/2020 05:0 1:00 PM EST completed eCW1 ([facility]) COVID-19 dose #1 given elsewhere Unspecified 08/11/2020 05:0 1:00 PM EST completed eCW1 ([facility]) COVID-19 dose #1 given elsewhere Unspecified 08/11/2020 05:0 1:00 PM EST completed eCW1 ([facility]) COVID-19 dose #1 given elsewhere Unspecified 08/11/2020 05:0 1:00 PM EST completed eCW1 ([facility]) COVID-19 dose #1 given elsewhere Unspecified 08/11/2020 05:0 1:00 PM EST completed eCW1 ([facility]) COVID-19 dose #1 given elsewhere Unspecified 08/11/2020 05:0 1:00 PM EST completed eCW1 ([facility]) COVID-19 dose #1 given elsewhere Unspecified 08/11/2020 05:0 1:00 PM EST completed eCW1 ([facility]) COVID-19 dose #1 given elsewhere Unspecified 08/11/2020 05:0 1:00 PM EST completed eCW1 ([facility]) COVID-19 dose #1 given elsewhere Unspecified 08/11/2020 05:0 1:00 PM EST completed eCW1 ([facility]) COVID-19 dose #1 given elsewhere Unspecified 08/11/2020 05:0 1:00 PM EST completed eCW1 ([facility]) COVID-19 dose #1 given elsewhere Unspecified 08/11/2020 05:0 1:00 PM EST completed eCW1 ([facility]) COVID-19 dose #1 given elsewhere Unspecified 08/11/2020 05:0 1:00 PM EST completed eCW1 ([facility]) COVID-19 dose #1 given elsewhere Unspecified 08/11/2020 05:0 1:00 PM EST completed eCW1 ([facility]) COVID-19 dose #1 given elsewhere Unspecified 08/11/2020 05:0 1:00 PM EST completed eCW1 ([facility]) COVID-19 dose #1 given elsewhere Unspecified 08/11/2020 05:0 1:00 PM EST completed eCW1 ([facility]) COVID-19 dose #1 given elsewhere Unspecified 08/11/2020 05:0 1:00 PM EST completed eCW1 ([facility]) Imm: COVID-19 dose #1 given elsewhere Unspecified 08/11/2020 05:01:00 PM EST completed eCW1 ([facility]) Imm: COVID-19 dose #1 given elsewhere Unspecified 08/11/2020 05:01:00 PM EST completed eCW1 ([facility]) Imm: COVID-19 dose #1 given elsewhere Unspecified 08/11/2020 05:01:00 PM EST completed eCW1 ([facility]) COVID-19 dose #1 (given elsewhere) Unspecified 08/11/2020 05 :01:00 PM EST completed eCW1 ([facility]) COVID-19 dose #1 (given elsewhere) Unspecified 08/11/2020 05 :01:00 PM EST completed eCW1 ([facility]) COVID-19 dose #1 (given elsewhere) Unspecified 08/11/2020 05 :01:00 PM EST completed eCW1 ([facility]) COVID-19 dose #1 (given elsewhere) Unspecified 08/11/2020 05 :01:00 PM EST completed eCW1 ([facility]) COVID-19(given elsewhere) Unspecified 08/11/2020 05:01:00 PM EST co mpleted eCW1 ([facility]) COVID-19 VACCINE Moderna 08/11/2020 12:00:00 AM EST completed [employer] Vaccine Series Complete: NOThis Data was Submitted to [facility] Via [employer]. IIV3. This is one of two codes replacing CVX 15, which is being retired. 05/03/2020 11:30:00 AM EDT completed eCW1 ([facility]) IIV3. This is one of two codes replacing CVX 15, which is being retired. 05/03/2020 11:30:00 AM EDT completed eCW1 ([facility]) IIV3. This is one of two codes replacing CVX 15, which is being retired. 05/03/2020 11:30:00 AM EDT completed eCW1 ([facility]) IIV3. This is one of two codes replacing CVX 15, which is being retired. 05/03/2020 11:30:00 AM EDT completed eCW1 ([facility]) IIV3. This is one of two codes replacing CVX 15, which is being retired. 05/03/2020 11:30:00 AM EDT completed eCW1 ([facility]) IIV3. This is one of two codes replacing CVX 15, which is being retired. 05/03/2020 11:30:00 AM EDT completed eCW1 ([facility]) IIV3. This is one of two codes replacing CVX 15, which is being retired. 05/03/2020 11:30:00 AM EDT completed eCW1 ([facility]) IIV3. This is one of two codes replacing CVX 15, which is being retired. 05/03/2020 11:30:00 AM EDT completed eCW1 ([facility]) IIV3. This is one of two codes replacing CVX 15, which is being retired. 05/03/2020 11:30:00 AM EDT completed eCW1 ([facility]) IIV3. This is one of two codes replacing CVX 15, which is being retired. 05/03/2020 11:30:00 AM EDT completed eCW1 ([facility]) IIV3. This is one of two codes replacing CVX 15, which is being retired. 05/03/2020 11:30:00 AM EDT completed eCW1 ([facility]) IIV3. This is one of two codes replacing CVX 15, which is being retired. 05/03/2020 11:30:00 AM EDT completed eCW1 ([facility]) IIV3. This is one of two codes replacing CVX 15, which is being retired. 05/03/2020 11:30:00 AM EDT completed eCW1 ([facility]) IIV3. This is one of two codes replacing CVX 15, which is being retired. 05/03/2020 11:30:00 AM EDT completed eCW1 ([facility]) IIV3. This is one of two codes replacing CVX 15, which is being retired. 05/03/2020 11:30:00 AM EDT completed eCW1 ([facility]) IIV3. This is one of two codes replacing CVX 15, which is being retired. 05/03/2020 11:30:00 AM EDT completed eCW1 ([facility]) IIV3. This is one of two codes replacing CVX 15, which is being retired. 05/03/2020 11:30:00 AM EDT completed eCW1 ([facility]) IIV3. This is one of two codes replacing CVX 15, which is being retired. 05/03/2020 11:30:00 AM EDT completed eCW1 ([facility]) IIV3. This is one of two codes replacing CVX 15, which is being retired. 05/03/2020 11:30:00 AM EDT completed eCW1 ([facility]) IIV3. This is one of two codes replacing CVX 15, which is being retired. 05/03/2020 11:30:00 AM EDT completed eCW1 ([facility]) IIV3. This is one of two codes replacing CVX 15, which is being retired. 05/03/2020 11:30:00 AM EDT completed eCW1 ([facility]) IIV3. This is one of two codes replacing CVX 15, which is being retired. 05/03/2020 11:30:00 AM EDT completed eCW1 ([facility]) IIV3. This is one of two codes replacing CVX 15, which is being retired. 05/03/2020 11:30:00 AM EDT completed eCW1 ([facility]) IIV3. This is one of two codes replacing CVX 15, which is being retired. 05/03/2020 11:30:00 AM EDT completed eCW1 ([facility]) IIV3. This is one of two codes replacing CVX 15, which is being retired. 05/03/2020 11:30:00 AM EDT completed eCW1 ([facility]) IIV3. This is one of two codes replacing CVX 15, which is being retired. 05/03/2020 11:30:00 AM EDT completed eCW1 ([facility]) IIV3. This is one of two codes replacing CVX 15, which is being retired. 05/03/2020 11:30:00 AM EDT completed eCW1 ([facility]) IIV3. This is one of two codes replacing CVX 15, which is being retired. 05/03/2020 11:30:00 AM EDT completed eCW1 ([facility]) IIV3. This is one of two codes replacing CVX 15, which is being retired. 05/03/2020 11:30:00 AM EDT completed eCW1 ([facility]) IIV3. This is one of two codes replacing CVX 15, which is being retired. 05/03/2020 11:30:00 AM EDT completed eCW1 ([facility]) IIV3. This is one of two codes replacing CVX 15, which is being retired. 05/03/2020 11:30:00 AM EDT completed eCW1 ([facility]) IIV3. This is one of two codes replacing CVX 15, which is being retired. 05/03/2020 11:30:00 AM EDT completed eCW1 ([facility]) IIV3. This is one of two codes replacing CVX 15, which is being retired. 05/03/2020 11:30:00 AM EDT completed eCW1 ([facility]) IIV3. This is one of two codes replacing CVX 15, which is being retired. 05/03/2020 11:30:00 AM EDT completed eCW1 ([facility]) IIV3. This is one of two codes replacing CVX 15, which is being retired. 05/03/2020 11:30:00 AM EDT completed eCW1 ([facility]) IIV3. This is one of two codes replacing CVX 15, which is being retired. 05/03/2020 11:30:00 AM EDT completed eCW1 ([facility]) IIV3. This is one of two codes replacing CVX 15, which is being retired. 05/03/2020 11:30:00 AM EDT completed eCW1 ([facility]) IIV3. This is one of two codes replacing CVX 15, which is being retired. 05/03/2020 11:30:00 AM EDT completed eCW1 ([facility]) IIV3. This is one of two codes replacing CVX 15, which is being retired. 05/03/2020 11:30:00 AM EDT completed eCW1 ([facility]) IIV3. This is one of two codes replacing CVX 15, which is being retired. 05/03/2020 11:30:00 AM EDT completed eCW1 ([facility]) IIV3. This is one of two codes replacing CVX 15, which is being retired. 05/03/2020 11:30:00 AM EDT completed eCW1 ([facility]) IIV3. This is one of two codes replacing CVX 15, which is being retired. 05/03/2020 11:30:00 AM EDT completed eCW1 ([facility]) IIV3. This is one of two codes replacing CVX 15, which is being retired. 05/03/2020 11:30:00 AM EDT completed eCW1 ([facility]) IIV3. This is one of two codes replacing CVX 15, which is being retired. 05/03/2020 11:30:00 AM EDT completed eCW1 ([facility]) IIV3. This is one of two codes replacing CVX 15, which is being retired. 05/03/2020 11:30:00 AM EDT completed eCW1 ([facility]) IIV3. This is one of two codes replacing CVX 15, which is being retired. 05/03/2020 11:30:00 AM EDT completed eCW1 ([facility]) Medications Medication Brand Name Start Date Product [...] AM EDT active Zithromax 250 MG eCW1 ([facility]) Ketoconazole 20 MG/ML Medicated Shampoo KETOCONAZOLE 05/03/20 [...] AM EDT active Zithromax 250 MG eCW1 ([facility]) Azithromycin 250 MG Oral Tablet [Zithromax] Zithromax 250 MG Zithromax 250 MG 05/03/2021 12:00:00 AM EDT active Zithromax 250 MG eCW1 ([facility]) Azithromycin 250 MG Oral Tablet [Zithromax] Zithromax 250 MG Zithromax 250 MG 05/03/2021 12:00:00 AM EDT active Zithromax 250 MG eCW1 ([facility]) Azithromycin 250 MG Oral Tablet [Zithromax] Zithromax 250 MG Zithromax 250 MG 05/03/2021 12:00:00 AM EDT active Zithromax 250 MG eCW1 ([facility]) tramadol hydrochloride 50 MG Oral Tablet traMADol HCl 50 MG traMADol HCl 50 MG 04/26/2021 12:00:00 AM EDT 1.0 {tablet} active traMADol HCl 50 MG eCW1 ([facility]) Cephalexin 500 MG Oral Tablet Cephalexin 500 MG 04/26/2021 12:00:00 AM EDT 1.0 {tablet} active Cephalexin 500 MG eCW1 ([facility]) Cephalexin 500 MG Oral Tablet Cephalexin 500 MG 04/26/2021 12:00:00 AM EDT 1.0 {tablet} active Cephalexin 500 MG eCW1 ([facility]) Cephalexin 500 MG Oral Tablet Cephalexin 500 MG 04/26/2021 12:00:00 AM EDT 1.0 {tablet} active Cephalexin 500 MG eCW1 ([facility]) tramadol hydrochloride 50 MG Oral Tablet traMADol HCl 50 MG traMADol HCl 50 MG 04/26/2021 12:00:00 AM EDT 1.0 {tablet} active traMADol HCl 50 MG eCW1 ([facility]) tramadol hydrochloride 50 MG Oral Tablet traMADol HCl 50 MG traMADol HCl 50 MG 04/26/2021 12:00:00 AM EDT 1.0 {tablet} active traMADol HCl 50 MG eCW1 ([facility]) tramadol hydrochloride 50 MG Oral Tablet traMADol HCl 50 MG traMADol HCl 50 MG 04/26/2021 12:00:00 AM EDT 1.0 {tablet} active traMADol HCl 50 MG eCW1 ([facility]) Cephalexin 500 MG Oral Tablet Cephalexin 500 MG 04/26/2021 12:00:00 AM EDT 1.0 {tablet} active Cephalexin 500 MG eCW1 ([facility]) Cephalexin 500 MG Oral Tablet Cephalexin 500 MG 04/26/2021 12:00:00 AM EDT 1.0 {tablet} active Cephalexin 500 MG eCW1 ([facility]) tramadol hydrochloride 50 MG Oral Tablet traMADol HCl 50 MG traMADol HCl 50 MG 04/26/2021 12:00:00 AM EDT 1.0 {tablet} active traMADol HCl 50 MG eCW1 ([facility]) Cephalexin 500 MG Oral Tablet Cephalexin 500 MG 04/26/2021 12:00:00 AM EDT 1.0 {tablet} active Cephalexin 500 MG eCW1 ([facility]) tramadol hydrochloride 50 MG Oral Tablet traMADol HCl 50 MG traMADol HCl 50 MG 04/26/2021 12:00:00 AM EDT 1.0 {tablet} active traMADol HCl 50 MG eCW1 ([facility]) Cephalexin 500 MG Oral Tablet Cephalexin 500 MG 04/26/2021 12:00:00 AM EDT 1.0 {tablet} active Cephalexin 500 MG eCW1 ([facility]) tramadol hydrochloride 50 MG Oral Tablet traMADol HCl 50 MG traMADol HCl 50 MG 04/26/2021 12:00:00 AM EDT 1.0 {tablet} active traMADol HCl 50 MG eCW1 ([facility]) tramadol hydrochloride 50 MG Oral Tablet traMADol HCl 50 MG traMADol HCl 50 MG 03/30/2021 12:00:00 AM EDT 1.0 {tablet} active traMADol HCl 50 MG eCW1 ([facility]) tramadol hydrochloride 50 MG Oral Tablet traMADol HCl 50 MG traMADol HCl 50 MG 03/30/2021 12:00:00 AM EDT 1.0 {tablet} active traMADol HCl 50 MG eCW1 ([facility]) Fluticasone propionate 0.5 MG/ML Topical Cream Fluticasone P ropionate 01/13/2021 12:00:00 AM EDT completed MEDENT ([facility]) duloxetine 20 MG Delayed Release Oral Capsule DULoxeti ne HCl 20 MG DULoxetine HCl 20 MG 01/03/2021 12:00:00 AM EDT 1.0 {capsule} a ctive DULoxetine HCl 20 MG eCW1 ([facility]) duloxetine 20 MG Delayed Release Oral Capsule DULoxeti ne HCl 20 MG DULoxetine HCl 20 MG 01/03/2021 12:00:00 AM EDT 1.0 {capsule} a ctive DULoxetine HCl 20 MG eCW1 ([facility]) duloxetine 20 MG Delayed Release Oral Capsule DULoxeti ne HCl 20 MG DULoxetine HCl 20 MG 01/03/2021 12:00:00 AM EDT 1.0 {capsule} a ctive DULoxetine HCl 20 MG eCW1 ([facility]) duloxetine 20 MG Delayed Release Oral Capsule DULoxeti ne HCl 20 MG DULoxetine HCl 20 MG 01/03/2021 12:00:00 AM EDT 1.0 {capsule} a ctive DULoxetine HCl 20 MG eCW1 ([facility]) duloxetine 20 MG Delayed Release Oral Capsule DULoxeti ne HCl 20 MG DULoxetine HCl 20 MG 01/03/2021 12:00:00 AM EDT 1.0 {capsule} a ctive DULoxetine HCl 20 MG eCW1 ([facility]) duloxetine 20 MG Delayed Release Oral Capsule DULoxeti ne HCl 20 MG DULoxetine HCl 20 MG 01/03/2021 12:00:00 AM EDT 1.0 {capsule} a ctive DULoxetine HCl 20 MG eCW1 ([facility]) duloxetine 20 MG Delayed Release Oral Capsule DULoxeti ne HCl 20 MG DULoxetine HCl 20 MG 01/03/2021 12:00:00 AM EDT 1.0 {capsule} a ctive DULoxetine HCl 20 MG eCW1 ([facility]) duloxetine 20 MG Delayed Release Oral Capsule DULoxeti ne HCl 20 MG DULoxetine HCl 20 MG 01/03/2021 12:00:00 AM EDT 1.0 {capsule} a ctive DULoxetine HCl 20 MG eCW1 ([facility]) duloxetine 20 MG Delayed Release Oral Capsule DULoxeti ne HCl 20 MG DULoxetine HCl 20 MG 01/03/2021 12:00:00 AM EDT 1.0 {capsule} a ctive DULoxetine HCl 20 MG eCW1 ([facility]) duloxetine 20 MG Delayed Release Oral Capsule DULoxeti ne HCl 20 MG DULoxetine HCl 20 MG 01/03/2021 12:00:00 AM EDT 1.0 {capsule} a ctive DULoxetine HCl 20 MG eCW1 ([facility]) duloxetine 20 MG Delayed Release Oral Capsule DULoxeti ne HCl 20 MG DULoxetine HCl 20 MG 01/03/2021 12:00:00 AM EDT 1.0 {capsule} a ctive DULoxetine HCl 20 MG eCW1 ([facility]) duloxetine 20 MG Delayed Release Oral Capsule DULoxeti ne HCl 20 MG DULoxetine HCl 20 MG 01/03/2021 12:00:00 AM EDT 1.0 {capsule} a ctive DULoxetine HCl 20 MG eCW1 ([facility]) duloxetine 20 MG Delayed Release Oral Capsule DULoxeti ne HCl 20 MG DULoxetine HCl 20 MG 01/03/2021 12:00:00 AM EDT 1.0 {capsule} a ctive DULoxetine HCl 20 MG eCW1 ([facility]) duloxetine 20 MG Delayed Release Oral Capsule DULoxeti ne HCl 20 MG DULoxetine HCl 20 MG 01/03/2021 12:00:00 AM EDT 1.0 {capsule} a ctive DULoxetine HCl 20 MG eCW1 ([facility]) duloxetine 20 MG Delayed Release Oral Capsule DULoxeti ne HCl 20 MG DULoxetine HCl 20 MG 01/03/2021 12:00:00 AM EDT 1.0 {capsule} a ctive DULoxetine HCl 20 MG eCW1 ([facility]) duloxetine 20 MG Delayed Release Oral Capsule DULoxeti ne HCl 20 MG DULoxetine HCl 20 MG 01/03/2021 12:00:00 AM EDT 1.0 {capsule} a ctive DULoxetine HCl 20 MG eCW1 ([facility]) duloxetine 20 MG Delayed Release Oral Capsule DULoxeti ne HCl 20 MG DULoxetine HCl 20 MG 01/03/2021 12:00:00 AM EDT 1.0 {capsule} a ctive DULoxetine HCl 20 MG eCW1 ([facility]) duloxetine 20 MG Delayed Release Oral Capsule DULoxeti ne HCl 20 MG DULoxetine HCl 20 MG 01/03/2021 12:00:00 AM EDT 1.0 {capsule} a ctive DULoxetine HCl 20 MG eCW1 ([facility]) duloxetine 20 MG Delayed Release Oral Capsule DULoxeti ne HCl 20 MG DULoxetine HCl 20 MG 01/03/2021 12:00:00 AM EDT 1.0 {capsule} a ctive DULoxetine HCl 20 MG eCW1 ([facility]) duloxetine 20 MG Delayed Release Oral Capsule DULoxeti ne HCl 20 MG DULoxetine HCl 20 MG 01/03/2021 12:00:00 AM EDT 1.0 {capsule} a ctive DULoxetine HCl 20 MG eCW1 ([facility]) Ketoconazole 20 MG/ML Topical Cream Ketoconazole 12/07/2020 12:00:00 AM EDT active MEDENT ([facility]) Ketoconazole 20 MG/ML Medicated Shampoo Ketoconazole 11/18/19 12:00:00 AM EDT active MEDENT ( [facility]) Clobetasol Propionate 0.5 MG/ML Topical Cream Clobetasol Pro pionate 11/17/2020 12:00:00 AM EDT active M EDENT ([facility]) tramadol hydrochloride 50 MG Oral Tablet Tramadol HCl 50 MG Tramadol HCl 50 MG 10/18/2020 12:00:00 AM EDT 1.0 {tablet} active Tramadol HCl 50 MG eCW1 ([facility]) tramadol hydrochloride 50 MG Oral Tablet traMADol HCl 50 MG traMADol HCl 50 MG 10/18/2020 12:00:00 AM EDT 1.0 {tablet} active traMADol HCl 50 MG eCW1 ([facility]) tramadol hydrochloride 50 MG Oral Tablet Tramadol HCl 50 MG Tramadol HCl 50 MG 10/18/2020 12:00:00 AM EDT 1.0 {tablet} active Tramadol HCl 50 MG eCW1 ([facility]) tramadol hydrochloride 50 MG Oral Tablet traMADol HCl 50 MG traMADol HCl 50 MG 10/18/2020 12:00:00 AM EDT 1.0 {tablet} active traMADol HCl 50 MG eCW1 ([facility]) tramadol hydrochloride 50 MG Oral Tablet traMADol HCl 50 MG traMADol HCl 50 MG 10/18/2020 12:00:00 AM EDT 1.0 {tablet} active traMADol HCl 50 MG eCW1 ([facility]) tramadol hydrochloride 50 MG Oral Tablet traMADol HCl 50 MG traMADol HCl 50 MG 10/18/2020 12:00:00 AM EDT 1.0 {tablet} active traMADol HCl 50 MG eCW1 ([facility]) tramadol hydrochloride 50 MG Oral Tablet Tramadol HCl 50 MG Tramadol HCl 50 MG 10/18/2020 12:00:00 AM EDT 1.0 {tablet} active Tramadol HCl 50 MG eCW1 ([facility]) tramadol hydrochloride 50 MG Oral Tablet traMADol HCl 50 MG traMADol HCl 50 MG 10/18/2020 12:00:00 AM EDT 1.0 {tablet} active traMADol HCl 50 MG eCW1 ([facility]) tramadol hydrochloride 50 MG Oral Tablet traMADol HCl 50 MG traMADol HCl 50 MG 10/18/2020 12:00:00 AM EDT 1.0 {tablet} active traMADol HCl 50 MG eCW1 ([facility]) tramadol hydrochloride 50 MG Oral Tablet Tramadol HCl 50 MG Tramadol HCl 50 MG 10/18/2020 12:00:00 AM EDT 1.0 {tablet} active Tramadol HCl 50 MG eCW1 ([facility]) tramadol hydrochloride 50 MG Oral Tablet Tramadol HCl 50 MG Tramadol HCl 50 MG 10/18/2020 12:00:00 AM EDT 1.0 {tablet} active Tramadol HCl 50 MG eCW1 ([facility]) tramadol hydrochloride 50 MG Oral Tablet traMADol HCl 50 MG traMADol HCl 50 MG 10/18/2020 12:00:00 AM EDT 1.0 {tablet} active traMADol HCl 50 MG eCW1 ([facility]) tramadol hydrochloride 50 MG Oral Tablet traMADol HCl 50 MG traMADol HCl 50 MG 10/18/2020 12:00:00 AM EDT 1.0 {tablet} active traMADol HCl 50 MG eCW1 ([facility]) tramadol hydrochloride 50 MG Oral Tablet traMADol HCl 50 MG traMADol HCl 50 MG 10/18/2020 12:00:00 AM EDT 1.0 {tablet} active traMADol HCl 50 MG eCW1 ([facility]) tramadol hydrochloride 50 MG Oral Tablet Tramadol HCl 50 MG Tramadol HCl 50 MG 10/18/2020 12:00:00 AM EDT 1.0 {tablet} active Tramadol HCl 50 MG eCW1 ([facility]) tramadol hydrochloride 50 MG Oral Tablet traMADol HCl 50 MG traMADol HCl 50 MG 10/18/2020 12:00:00 AM EDT 1.0 {tablet} active traMADol HCl 50 MG eCW1 ([facility]) tramadol hydrochloride 50 MG Oral Tablet traMADol HCl 50 MG traMADol HCl 50 MG 10/18/2020 12:00:00 AM EDT 1.0 {tablet} active traMADol HCl 50 MG eCW1 ([facility]) tramadol hydrochloride 50 MG Oral Tablet Tramadol HCl 50 MG Tramadol HCl 50 MG 10/18/2020 12:00:00 AM EDT 1.0 {tablet} active Tramadol HCl 50 MG eCW1 ([facility]) tramadol hydrochloride 50 MG Oral Tablet traMADol HCl 50 MG traMADol HCl 50 MG 10/18/2020 12:00:00 AM EDT 1.0 {tablet} active traMADol HCl 50 MG eCW1 ([facility]) tramadol hydrochloride 50 MG Oral Tablet Tramadol HCl 50 MG Tramadol HCl 50 MG 10/18/2020 12:00:00 AM EDT 1.0 {tablet} active Tramadol HCl 50 MG eCW1 ([facility]) tramadol hydrochloride 50 MG Oral Tablet traMADol HCl 50 MG traMADol HCl 50 MG 10/18/2020 12:00:00 AM EDT 1.0 {tablet} active traMADol HCl 50 MG eCW1 ([facility]) tramadol hydrochloride 50 MG Oral Tablet Tramadol HCl 50 MG Tramadol HCl 50 MG 10/18/2020 12:00:00 AM EDT 1.0 {tablet} active Tramadol HCl 50 MG eCW1 ([facility]) tramadol hydrochloride 50 MG Oral Tablet Tramadol HCl 50 MG Tramadol HCl 50 MG 10/18/2020 12:00:00 AM EDT 1.0 {tablet} active Tramadol HCl 50 MG eCW1 (Formerly [facility]) Insurance Providers Payer name Policy type / Coverage type Policy ID Covered democrat ID Covered democrat's relationship to orozco Policy [employer] Plan Information Medicare Natl Govt Servic Medicare Primary [id number] Self [id number] Medicare Natl Govt Servic Medicare Primary [id number] Self [id number] Medicare Natl Govt Servic Medicare Primary [id number] Self [id number] [facility] Health Maintenance Organization ([facility]) [id number] Family Dependent Z [id number] [facility] Health Maintenance Organization ([facility]) [id number] Family Dependent Z [id number] [facility] Health Maintenance Organization ([facility]) [id number] Family Dependent Z [id number] [facility] ([facility]) [id number] Family Dependent Z [id number] [facility] Health Maintenance Organization ([facility]) [id number] Family Dependent Z [id number] [facility] Health Maintenance Organization ([facility]) [id number] Family Dependent [id number] [facility] Health Maintenance Organization ([facility]) [id number] Family Dependent Z [id number] [facility] Health Maintenance Organization ([facility]) Usbpi [id number] Family Dependent U sbpi [facility] Health Maintenance Organization ([facility]) [id number] Family Dependent Z [id number] [facility] Health Maintenance Organization ([facility]) [id number] Family Dependent Z [id number] [facility] Health Maintenance Organization ([facility]) [id number] Family Dependent Z [id number] [facility] Health Maintenance Organization ([facility]) [id number] Family Dependent Z [id number] [facility] Health Maintenance Organization ([facility]) [id number] Family Dependent Z [id number] [employer]/MX Commercial 802 [id number]. [id number] Family Dependent 802 BS Lakhw[employer] Trad/MX Medigap Part B [id number] Family Dependent [id number] BS [employer] Trad/MX Medigap Part B [id number] Family Dependent [id number] BS [employer] Trad/MX Commercial 802 [id number] Family Dependent 802 BS [employer]/MX Commercial 802 [id number] .[id number] Self 802 BS [employer] Trad/MX Medigap Part B [id number] Self [id number] [employer] Commercial [id number] Self Y [id number] [employer] Commercial [id number] Self Y [id number] [employer] Commercial [id number] Self Y [id number] [employer] Tr[employer]/MX Medigap Part B [id number] Self [id number] [employer] Commercial [id number] Self Y [id number] [employer] Commercial [id number] [id number] Self Y [id number] [employer] Trad/MX Medigap Part B [id number] Self Y [id number] BS Lakhwinder Tr[employer]/MX Commercial [id number] Self Y [id number] [employer] Commercial [id number] Self Y [id number] BS Lakhwinder Trad/MX Medigap Part B [id number] Self Y [id number] BS Lakhwinder Trad/MX Medigap Part B [id number] [id number] Self Y [id number] BS [employer] Trad/MX Medigap Part B [id number] Self Y [id number] BS Lakhwinder Trad/MX Commercial [employer] [id number] Self G old Select [facility] Medicare [place] Commercial [id number] 00 [id number] Self 9 [id number] [facility] [employer] Commercial [id number] 00 [id number] Self [id number] [employer] Medicare [place] Commercial [id number] Self [id number] UHC UNITED MEDICARE COMPLETE G [id number] Self [id number] [facility] [id number] Self [id number] [facility] Medicare P [id number] SELF [id number] [employer] Blue [employer] and Blue Shield - [place] Blue Cross/B lue Shield [id number] Self [id number] [employer] MEDICARE BLUE PPO G [id number] Self [id number] [employer] BCBS P [id number] S VYS [id number] MEDICARE [id number] SP [id number] Blue Shield Medicare P [id number] SELF [id number] BS [place] Trad/MX Medigap Part B [id number] MEDICARE COMPLETE [id number] SP [id number] ANSI-Medicare Part B [id number] ANSI-Medicare Part B [id number] ANSI-Medicare Part B [id number] ANSI-Medicare Part B [id number] [facility] [id number] SP [id number] MEDICARE COMPLETE [id number] SP [id number] [facility] O [id number] S [id number] BS [place] Trad/MX Commercial 802 [id number] [facility] O [id number] S [id number] [facility] [id number] SP [id number] [place] 305/805 [id number] SP [id number] [place] BCBS B [id number] S YNE [id number] [place] 302/307 [id number] [place] [id number] [place] 302/307 [id number] SP [id number] [employer] [employer]BS P [id number] S VYS [id number] [place] 302/307 [id number] [place] [id number] MEDICARE BLUE PPO 306 [id number] SP [id number] Problems, Conditions, and Diagnoses Code Display Name Description Problem Type Effective Dates Data Source(s) G25.0 Essential tremor Essential tremor Diagnosis 11/03/2020 01 :35:44 PM EDT [facility] R29.6 [id number] Frequent falls Problem 01/25/2021 12:00:00 A M EDT eCW1 (Formerly [facility]) M25.551 [id number] Right hip pain Problem 12/27/2020 12:00 :00 AM EDT eCW1 (Formerly [facility]) Z68.41 [id number] Body mass index (BMI) of 40.1 to 44.9 in adult Problem 06/29/2020 12:00:00 AM EST eC (Formerly [facility]) Surgeries/Procedures Procedure Description Date Indications Data Source(s) OFFICE OUTPATIENT NEW 30 MINUTES 05/20/2021 12:00:00 A M CARLYLE NOONAN ([facility], ) Shave Biopsy Of Skin, Single Lesion 03/22/2021 12:00:0 0 AM EDT [facility] ([facility]) OFFICE OUTPATIENT VISIT 25 MINUTES 03/22/2021 12:00:00 AM EDT [facility] ([facility]) OFFICE OUTPATIENT VISIT 25 MINUTES 01/13/2021 12:00:00 AM EDT [facility] ([facility]) DESTRUCTION PREMALIGNANT LESION 1ST 12/07/2020 12:00:0 0 AM EDT [facility] ([facility]) OFFICE OUTPATIENT VISIT 25 MINUTES 12/07/2020 12:00:00 AM EDT [facility] ([facility]) Shave Biopsy Of Skin, Single Lesion 11/17/2020 12:00:0 0 AM EDT [facility] ([facility]) Each Separate/Additional Lesion 11/17/2020 12:00:00 AM EDT [facility] ([facility]) OFFICE OUTPATIENT NEW 45 MINUTES 11/17/2020 12:00:00 A M EDT [facility] ([facility]) CT HEAD/BRAIN W/O CONTRAST MATERIAL <td>CT HEAD WITHOU T CONTRAST [id number]</td><td>Routine</td><td>11/03/2020 2:10 PM EDT</td><td> Essential tremor</td><td> </td> 11/03/2020 02:10:02 PM EDT Essential tremor [facility] Essential tremor Results ID Date Data Source [id number] 03/22/2021 03:20:00 PM EDT [facility] ([facility]) Name Value Range Interpretation Code Description Data Ct rce(s) Supporting Document(s) Laboratory test finding (navigational concept) Laboratory test result [facility] ([facility]) ID Date Data Source [id number] 03/02/2021 08:45:[address] [facility] Name Value Range Interpretation Code Description Data Ct rce(s) Supporting Document(s) SARS-CoV-2 RNA Resp Ql OLIVIA+probe NOT DETECTED [facility] This lab was ordered by DANNIE agee and reported by DANNIE Frazier. ID Date Data Source [id number] 11/17/2020 11:14:00 AM [facility] Name Value Range Interpretation Code Description Data Ct rce(s) Supporting Document(s) Laboratory test finding (navigational concept) Laboratory test result [facility] ([facility]) A) LN2 to any remaining, appt 12/07/20 B) LN2 to any remaining, appt 12/07/20 Laboratory test finding (navigational concept) Laboratory test result [facility] ([facility]) A) LN2 to any remaining, appt 12/07/20 B) [address]2 to any remaining, appt 12/07/20 ID Date Data Source [id number] 11/03/2020 02:33:39 PM EDT [facility] CT HEAD WITHOUT CONTRAST [id number] RESU LTInterpreted by:Brneda Rodriguez MDHISTORY: Essential tremor.TECHNIQUE: Noncontrast CT head. [...] rce(s) Supporting Document(s) ID Date Data Source [id number] 08/18/2020 09:14:00 AM EST [facility] Name Value Range Interpretation Code Description Data Ct rce(s) Supporting Document(s) SARS coronavirus 2 RNA Not Detected [facility] [place] This lab was ordered by [facility] and reported by [facility]. ID Date Data Source Coronavirus 2019 Nasopharygeal (Send Out) COVID 08/18/2020 1 2:00:00 AM EST eCW1 (Formerly [facility]) Name Value Range Interpretation Code Description Data Ct rce(s) Supporting Document(s) This nucleic acid amplification test was developed and its CORONAVIRUS 2019 NASOPHARYGEAL eCW1 (Formerly [facility]) ID Date Data Source Basic Metabolic Profile (BMP) 08/18/2020 12:00:00 AM EST eCW 1 (Formerly [facility]) Name Value Range Interpretation Code Description Data Ct rce(s) Supporting Document(s) 100 70-100 GLUCOSE, FASTING eCW1 ([facility]) 0.88 0.70-1.30 CREATININE FOR GFR eCW1 [facility] 24 7-18 BLOOD UREA NITROGEN eCW1 ([facility]) 4.2 3.5-5.1 POTASSIUM SERUM eCW1 ([facility]) 141 136-145 SODIUM LEVEL eCW1 ([facility]) > 60.0 >42 GLOMERULAR FILTRATION RATE eCW 1 (Formerly [facility]) 103 98-107 CHLORIDE LEVEL eCW1 (Formerly [facility]) 31 21-32 CARBON DIOXIDE LEVEL eCW1 ([facility]) 9.6 8.8-10.2 CALCIUM LEVEL eCW1 ([facility]ly [facility]) ID Date Data Source [id number] 08/18/2020 12:00:00 AM EST eCW1 ([facility]) Name Value Range Interpretation Code Description Data Ct rce(s) Supporting Document(s) Hemoglobin A1c/Hemoglobin.total in Blood 5.5 HEMOGLOBIN A1c eCW1 ([facility]ly [facility]) ID Date Data Source CBC - Complete Blood Count 08/18/2020 12:00:00 AM EST eCW1 ( [facility]ly [facility]) Name Value Range Interpretation Code Description Data Ct rce(s) Supporting Document(s) 4.4 4.0-10.0 WHITE BLOOD COUNT eCW1 ([facility]) 14.4 13.5-17.5 HEMOGLOBIN eCW1 ([facility]) 4.30 4.30-6.10 RED BLOOD COUNT eCW1 ([facility]) 42.5 42.0-52.0 HEMATOCRIT eCW1 ([facility]) 33.9 32.0-36.5 MEAN CORPUSCULAR HGB CONC eCW1 ([facility]ly [facility]) 33.5 27.0-33.0 MEAN CORPUSCULAR HEMOGLOB IN eCW1 ([facility]ly [facility]) 12.6 11.5-14.5 RED CELL DISTRIBUTION WID TH eCW1 ([facility]ly [facility]) 98.8 80.0-96.0 MEAN CORPUSCULAR VOLUME e CW1 (Formerly [facility]) 161 150-450 PLATELET COUNT, AUTOMATED eCW1 ([facility]ly [facility]) ID Date Data Source [id number] 07/05/2020 12:00:00 AM EST [facility] Name Value Range Interpretation Code Description Data Ct rce(s) Supporting Document(s) SARS coronavirus 2 RNA [Presence] in Res piratory specimen by OLIVIA with probe detection [facility] This lab was ordered by Freddie Miguel and reported by tuul. ID Date Data Source [id number] 07/05/2020 12:00:00 AM EST [facility] Name Value Range Interpretation Code Description Data Ct rce(s) Supporting Document(s) Carestart Rapid COVID Antigen Test [facility] This lab was reported by Freddie torre. Procedure Social History Code Duration Value Status Description Data Source(s ) Smoking 05/20/2021 12:00:00 AM EST Patient is a former smoker completed Patient is a former smoker [facility] ([facility], ) Smoking 04/26/2021 12:00:00 AM EDT Former Smoker completed Former Smoker eCW1 (Formerly [facility]) Smoking 04/26/2021 12:00:00 AM EDT Former Smoker completed Former Smoker eCW1 (Formerly [facility]) Smoking 04/26/2021 12:00:00 AM EDT Former Smoker completed Former Smoker eCW1 (Formerly [facility]) Smoking 04/26/2021 12:00:00 AM EDT Former Smoker completed Former Smoker eCW1 (Formerly [facility]) Smoking 04/26/2021 12:00:00 AM EDT Former Smoker completed Former Smoker eCW1 (Formerly [facility]) Smoking 04/26/2021 12:00:00 AM EDT Former Smoker completed Former Smoker eCW1 ([facility]ly [facility]) Smoking 04/26/2021 12:00:00 AM EDT Former Smoker completed Former Smoker eCW1 (Formerly [facility]) Smoking 01/19/2021 12:00:00 AM EDT Former Smoker completed Former Smoker eCW1 ([facility]ly [facility]) Smoking 01/19/2021 12:00:00 AM EDT Former Smoker completed Former Smoker eCW1 ([facility]ly [facility]) Smoking 01/19/2021 12:00:00 AM EDT Former Smoker completed Former Smoker eCW1 ([facility]ly [facility]) Smoking 01/19/2021 12:00:00 AM EDT Former Smoker completed Former Smoker eCW1 ([facility]ly [facility]) Smoking 01/19/2021 12:00:00 AM EDT Former Smoker completed Former Smoker eCW1 ([facility]ly [facility]) Smoking 01/19/2021 12:00:00 AM EDT Former Smoker completed Former Smoker eCW1 ([facility]ly [facility]) Smoking 01/19/2021 12:00:00 AM EDT Former Smoker completed Former Smoker eCW1 ([facility]ly [facility]) Smoking 01/19/2021 12:00:00 AM EDT Former Smoker completed Former Smoker eCW1 ([facility]ly [facility]) Smoking 01/19/2021 12:00:00 AM EDT Former Smoker completed Former Smoker eCW1 ([facility]ly [facility]) Smoking 01/19/2021 12:00:00 AM EDT Former Smoker completed Former Smoker eCW1 ([facility]ly [facility]) Smoking 01/19/2021 12:00:00 AM EDT Former Smoker completed Former Smoker eCW1 ([facility]ly [facility]) Smoking 01/19/2021 12:00:00 AM EDT Former Smoker completed Former Smoker eCW1 ([facility]ly [facility]) Smoking 01/03/2021 12:00:00 AM EDT Former Smoker completed Former Smoker eCW1 ([facility]ly [facility]) Smoking 12/27/2020 12:00:00 AM EDT Former Smoker completed Former Smoker eCW1 ([facility]ly [facility]) Smoking 10/18/2020 12:00:00 AM EDT Former Smoker completed Former Smoker eCW1 ([facility]ly [facility]) Smoking 10/18/2020 12:00:00 AM EDT Former Smoker completed Former Smoker eCW1 ([facility]ly [facility]) Smoking 10/18/2020 12:00:00 AM EDT Former Smoker completed Former Smoker eCW1 ([facility]ly [facility]) Smoking 10/18/2020 12:00:00 AM EDT Former Smoker completed Former Smoker eCW1 ([facility]ly [facility]) Smoking 10/18/2020 12:00:00 AM EDT Former Smoker completed Former Smoker eCW1 ([facility]ly [facility]) Smoking 10/18/2020 12:00:00 AM EDT Former Smoker completed Former Smoker eCW1 ([facility]ly [facility]) Smoking 10/18/2020 12:00:00 AM EDT Former Smoker completed Former Smoker eCW1 ([facility]ly [facility]) Smoking 10/18/2020 12:00:00 AM EDT Former Smoker completed Former Smoker eCW1 ([facility]ly [facility]) Smoking 10/18/2020 12:00:00 AM EDT Former Smoker completed Former Smoker eCW1 ([facility]ly [facility]) Smoking 10/18/2020 12:00:00 AM EDT Former Smoker completed Former Smoker eCW1 ([facility]ly [facility]) Smoking 10/18/2020 12:00:00 AM EDT Former Smoker completed Former Smoker eCW1 ([facility]ly [facility]) Smoking 08/18/2020 12:00:00 AM EST Former Smoker completed Former Smoker eCW1 ([facility]ly [facility]) Smoking 08/18/2020 12:00:00 AM EST Former Smoker completed Former Smoker eCW1 ([facility]ly [facility]) Smoking 08/18/2020 12:00:00 AM EST Former Smoker completed Former Smoker eCW1 ([facility]ly [facility]) Smoking 08/18/2020 12:00:00 AM EST Former Smoker completed Former Smoker eCW1 ([facility]ly [facility]) Smoking 08/18/2020 12:00:00 AM EST Former Smoker completed Former Smoker eCW1 ([facility]ly [facility]) Smoking 08/18/2020 12:00:00 AM EST Former Smoker completed Former Smoker eCW1 ([facility]ly [facility]) Smoking 08/18/2020 12:00:00 AM EST Former Smoker completed Former Smoker eCW1 ([facility]ly [facility]) Smoking 08/18/2020 12:00:00 AM EST Former Smoker completed Former Smoker eCW1 ([facility]ly [facility]) Smoking 08/18/2020 12:00:00 AM EST Former Smoker completed Former Smoker eCW1 ([facility]ly [facility]) Smoking 08/18/2020 12:00:00 AM EST Former Smoker completed Former Smoker eCW1 ([facility]ly [facility]) Smoking 08/18/2020 12:00:00 AM EST Former Smoker completed Former Smoker eCW1 ([facility]ly [facility]) Smoking 08/18/2020 12:00:00 AM EST Former Smoker completed Former Smoker eCW1 ([facility]ly [facility]) Smoking 08/18/2020 12:00:00 AM EST Former Smoker completed Former Smoker eCW1 ([facility]ly [facility]) Smoking 06/29/2020 12:00:00 AM EST Former Smoker completed Former Smoker eCW1 (Formerly [facility]) Vital Signs ID Date Data Source UNK Name Value Range Interpretation Code Description Data Source(s) Diastolic blood pressure 74 mm[Hg] 74 mm[Hg] [facility] ([facility]) Body weight 272.00 [lb_av] 272.00 [lb_av] MEDEN T ([facility]) Systolic blood pressure 120 mm[Hg] 120 mm[Hg] M EDENT ([facility]) Heart rate 74 /min 74 /min [facility] ([facility]) Oxygen saturation in Arterial blood by Pulse oximetry 93 % 93 % [facility] ([facility]) Body height 71 [in_i] 71 [in_i] [facility] ([facility]) 5'11" Body mass index (BMI) [Ratio] 37.9 kg/m2 37.9 k g/m2 [facility] ([facility]) [place] body weight 172 [lb_av] 172 [lb_av] MEDEN T ([facility]) Body weight 123.379 kg 123.379 kg [facility] ([facility]) Body surface area Derived from formula 2.40 m2 2.40 m2 [facility] ([facility]) Body weight 285.6 [lb_av] 285.6 [lb_av] eCW1 ([facility]) Body weight 129.55 kg 129.55 kg W1 ([facility]) Body height 70 [in_i] 70 [in_i] [facility] ([facility]) Body mass index (BMI) [Ratio] 40.97 kg/m2 40.97 kg/m2 [facility] ([facility]ly [facility]) Heart rate 74 /min 74 /min eCW1 ([facility]) Respiratory rate 20 /min 20 /min eCW1 ([facility]) Body temperature 98.3 [degF] 98.3 [degF] eCW1 ( [facility]) Systolic blood pressure 126 mm[Hg] 126 mm[Hg] e CW1 ([facility]ly [facility]) Diastolic blood pressure 68 mm[Hg] 68 mm[Hg] eCW1 ([facility]) Systolic blood pressure 152 mm[Hg] 152 mm[Hg] M EDENT ([facility]) Diastolic blood pressure 69 mm[Hg] 69 mm[Hg] [facility] ([facility]) Body weight 286.00 [lb_av] 286.00 [lb_av] MEDEN T ([facility]) Body height 71 [in_i] 71 [in_i] [facility] ([facility]) 5'11" Body mass index (BMI) [Ratio] 39.9 kg/m2 39.9 k g/m2 [facility] ([facility]) Body weight 291 [lb_av] 291 [lb_av] eCW1 [facility] Body height 70 [in_i] 70 [in_i] eCW1 ([facility]) Body mass index (BMI) [Ratio] 41.75 kg/m2 41.75 kg/m2 W1 ([facility]ly [facility]) Heart rate 67 /min 67 /min eCW1 ([facility]) Respiratory rate 20 /min 20 /min eCW1 ([facility]) Body temperature 97 [degF] 97 [degF] eCW1 ([facility]) Systolic blood pressure 130 mm[Hg] 130 mm[Hg] e CW1 ([facility]ly [facility]) Diastolic blood pressure 66 mm[Hg] 66 mm[Hg] eCW1 ([facility]) Diastolic blood pressure 64 mm[Hg] 64 mm[Hg] [facility] ([facility]) Systolic blood pressure 122 mm[Hg] 122 mm[Hg] M EDENT ([facility]) Body weight 290.00 [lb_av] 290.00 [lb_av] MEDEN T ([facility]) Respiratory rate 17 /min 17 /min [facility] ( [facility]) Respiratory rate 17 /min 17 /min [facility] ( [facility]) Body weight 290.00 [lb_av] 290.00 [lb_av] [facility] Body weight 287.6 [lb_av] 287.6 [lb_av] eCW1 ([facility]) Body height 70 [in_i] 70 [in_i] eCW1 ([facility]) Body mass index (BMI) [Ratio] 41.26 kg/m2 41.26 kg/m2 eCW1 ([facility]) Heart rate 78 /min 78 /min eCW1 ([facility]) Respiratory rate 20 /min 20 /min eCW1 ([facility]) Body temperature 98.9 [degF] 98.9 [degF] eCW1 ( [facility]) Systolic blood pressure 144 mm[Hg] 144 mm[Hg] e CW1 ([facility]ly [facility]) Diastolic blood pressure 72 mm[Hg] 72 mm[Hg] eCW1 ([facility]) Systolic blood pressure 120 mm[Hg] 120 mm[Hg] M EDENT ([facility]) Diastolic blood pressure 70 mm[Hg] 70 mm[Hg] [facility] ([facility]) Body weight 290.00 [lb_av] 290.00 [lb_av] MEDEN T ([facility]) Respiratory rate 18 /min 18 /min [facility] ( [facility]) Heart rate 72 /min 72 /min eCW1 ([facility]) Body height 70 [in_i] 70 [in_i] eCW1 ([facility]) Body mass index (BMI) [Ratio] 42.04 kg/m2 42.04 kg/m2 eCW1 ([facility]) Body weight 293 [lb_av] 293 [lb_av] eCW1 [facility] Respiratory rate 18 /min 18 /min eCW1 ([facility]) Body temperature 98.8 [degF] 98.8 [degF] eCW1 ( [facility]) Systolic blood pressure 130 mm[Hg] 130 mm[Hg] e CW1 ([facility]) Diastolic blood pressure 70 mm[Hg] 70 mm[Hg] eCW1 ([facility]) Body weight 282 [lb_av] 282 [lb_av] eCW1 [facility] Body height 70 [in_i] 70 [in_i] eCW1 ([facility]) Body mass index (BMI) [Ratio] 40.46 kg/m2 40.46 kg/m2 eCW1 ([facility]) Heart rate 78 /min 78 /min eCW1 ([facility]) Respiratory rate 18 /min 18 /min eCW1 ([facility]) Body temperature 96.4 [degF] 96.4 [degF] eCW1 ( [facility]) Systolic blood pressure 142 mm[Hg] 142 mm[Hg] e CW1 ([facility]) Diastolic blood pressure 70 mm[Hg] 70 mm[Hg] eCW1 ([facility]) Heart rate 88 /min 88 /min eCW1 ([facility]) Respiratory rate 18 /min 18 /min eCW1 ([facility]) Body temperature 99 [degF] 99 [degF] eCW1 ([facility]) Systolic blood pressure 160 mm[Hg] 160 mm[Hg] e CW1 ([facility]) Diastolic blood pressure 88 mm[Hg] 88 mm[Hg] eCW1 ([facility]) Body weight 285 [lb_av] 285 [lb_av] eCW1 [facility] Body height 70 [in_i] 70 [in_i] eCW1 ([facility]) Body mass index (BMI) [Ratio] 40.89 kg/m2 40.89 kg/m2 eCW1 ([facility]ly [facility]) Patient Treatment Plan of Care Planned Activity Planned Date Details Description Data Source (s) Azithromycin 250 MG Oral Tablet [Zithromax] 05/03/2021 12:00:00 AM EDT eCW1 ([facility]ly [facility]) Azithromycin 250 MG Oral Tablet [Zithromax] 05/03/2021 12:00:00 AM EDT eCW1 ([facility]ly [facility]) Azithromycin 250 MG Oral Tablet [Zithromax] 05/03/2021 12:00:00 AM EDT eCW1 ([facility]ly [facility]) Azithromycin 250 MG Oral Tablet [Zithromax] 05/03/2021 12:00:00 AM EDT eCW1 ([facility]ly [facility]) Azithromycin 250 MG Oral Tablet [Zithromax] 05/03/2021 12:00:00 AM EDT eCW1 ([facility]ly [facility]) tramadol hydrochloride 50 MG Oral Tablet 04/26/2021 12:00:00 AM EDT eCW1 ([facility]ly [facility]) Cephalexin 500 MG Oral Tablet 04/26/2021 12:00:00 AM EDT eCW1 ([facility]ly [facility]) tramadol hydrochloride 50 MG Oral Tablet 04/26/2021 12:00:00 AM EDT eCW1 ([facility]ly [facility]) Cephalexin 500 MG Oral Tablet 04/26/2021 12:00:00 AM EDT eCW1 ([facility]) tramadol hydrochloride 50 MG Oral Tablet 04/26/2021 12:00:00 AM EDT eCW1 ([facility]) Cephalexin 500 MG Oral Tablet 04/26/2021 12:00:00 AM EDT eCW1 ([facility]) tramadol hydrochloride 50 MG Oral Tablet 04/26/2021 12:00:00 AM EDT eCW1 ([facility]) Cephalexin 500 MG Oral Tablet 04/26/2021 12:00:00 AM EDT eCW1 ([facility]) tramadol hydrochloride 50 MG Oral Tablet 04/26/2021 12:00:00 AM EDT eCW1 ([facility]) Cephalexin 500 MG Oral Tablet 04/26/2021 12:00:00 AM EDT eCW1 ([facility]) tramadol hydrochloride 50 MG Oral Tablet 04/26/2021 12:00:00 AM EDT eCW1 ([facility]) Cephalexin 500 MG Oral Tablet 04/26/2021 12:00:00 AM EDT eCW1 ([facility]) tramadol hydrochloride 50 MG Oral Tablet 04/26/2021 12:00:00 AM EDT eCW1 ([facility]) Cephalexin 500 MG Oral Tablet 04/26/2021 12:00:00 AM EDT eCW1 ([facility]) tramadol hydrochloride 50 MG Oral Tablet 03/30/2021 12:00:00 AM EDT eCW1 ([facility]) tramadol hydrochloride 50 MG Oral Tablet 03/30/2021 12:00:00 AM EDT eCW1 ([facility]) duloxetine 20 MG Delayed Release Oral Capsule 01/03/2021 12:00:00 A M EDT eCW1 ([facility]) duloxetine 20 MG Delayed Release Oral Capsule 01/03/2021 12:00:00 A M EDT eCW1 ([facility]ly [facility]) duloxetine 20 MG Delayed Release Oral Capsule 01/03/2021 12:00:00 A M EDT eCW1 ([facility]ly [facility]) duloxetine 20 MG Delayed Release Oral Capsule 01/03/2021 12:00:00 A M EDT eCW1 ([facility]ly [facility]) duloxetine 20 MG Delayed Release Oral Capsule 01/03/2021 12:00:00 A M EDT eCW1 ([facility]) duloxetine 20 MG Delayed Release Oral Capsule 01/03/2021 12:00:00 A M EDT eCW1 ([facility]) duloxetine 20 MG Delayed Release Oral Capsule 01/03/2021 12:00:00 A M EDT eCW1 ([facility]) duloxetine 20 MG Delayed Release Oral Capsule 01/03/2021 12:00:00 A M EDT eCW1 ([facility]ly [facility]) duloxetine 20 MG Delayed Release Oral Capsule 01/03/2021 12:00:00 A M EDT eCW1 ([facility]) duloxetine 20 MG Delayed Release Oral Capsule 01/03/2021 12:00:00 A M EDT eCW1 ([facility]) duloxetine 20 MG Delayed Release Oral Capsule 01/03/2021 12:00:00 A M EDT eCW1 ([facility]) duloxetine 20 MG Delayed Release Oral Capsule 01/03/2021 12:00:00 A M EDT eCW1 ([facility]) duloxetine 20 MG Delayed Release Oral Capsule 01/03/2021 12:00:00 A M EDT eCW1 ([facility]) duloxetine 20 MG Delayed Release Oral Capsule 01/03/2021 12:00:00 A M EDT eCW1 ([facility]ly [facility]) duloxetine 20 MG Delayed Release Oral Capsule 01/03/2021 12:00:00 A M EDT eCW1 ([facility]ly [facility]) tramadol hydrochloride 50 MG Oral Tablet 10/18/2020 12:00:00 AM EDT eCW1 ([facility]) tramadol hydrochloride 50 MG Oral Tablet 10/18/2020 12:00:00 AM EDT eCW1 ([facility]) tramadol hydrochloride 50 MG Oral Tablet 10/18/2020 12:00:00 AM EDT eCW1 ([facility]) tramadol hydrochloride 50 MG Oral Tablet 10/18/2020 12:00:00 AM EDT eCW1 ([facility]) tramadol hydrochloride 50 MG Oral Tablet 10/18/2020 12:00:00 AM EDT eCW1 ([facility]) tramadol hydrochloride 50 MG Oral Tablet 10/18/2020 12:00:00 AM EDT eCW1 ([facility]) tramadol hydrochloride 50 MG Oral Tablet 10/18/2020 12:00:00 AM EDT eCW1 ([facility]) tramadol hydrochloride 50 MG Oral Tablet 10/18/2020 12:00:00 AM EDT eCW1 ([facility]) tramadol hydrochloride 50 MG Oral Tablet 10/18/2020 12:00:00 AM EDT eCW1 ([facility]) tramadol hydrochloride 50 MG Oral Tablet 10/18/2020 12:00:00 AM EDT eCW1 ([facility]) tramadol hydrochloride 50 MG Oral Tablet 10/18/2020 12:00:00 AM EDT eCW1 ([facility]) tramadol hydrochloride 50 MG Oral Tablet 10/18/2020 12:00:00 AM EDT eCW1 ([facility]) tramadol hydrochloride 50 MG Oral Tablet 10/18/2020 12:00:00 AM EDT eCW1 ([facility]) tramadol hydrochloride 50 MG Oral Tablet 10/18/2020 12:00:00 AM EDT eCW1 (Formerly [facility]) tramadol hydrochloride 50 MG Oral Tablet 10/18/2020 12:00:00 AM EDT eCW1 (Formerly [facility]) tramadol hydrochloride 50 MG Oral Tablet 10/18/2020 12:00:00 AM EDT eCW1 (Formerly [facility]) tramadol hydrochloride 50 MG Oral Tablet 10/18/2020 12:00:00 AM EDT eCW1 (Formerly [facility]) tramadol hydrochloride 50 MG Oral Tablet 10/18/2020 12:00:00 AM EDT eCW1 (Formerly [facility])
== END 2021-05-25 14:06 | disposition left against medical advice (07) ==
LOC: M ED 11:58
DX: Z53.29 Procedure and treatment not carried out because of patient's decision for other reasons (principal)

== ENCOUNTER → 2021-06-19 | Outpatient (CLI) | payer MEDICARE ==
[~2021-06-19] MED LIST changes: +ATOR40TA75; +CELE1CAP9; +DULO1CAP4; +PROP60CA; +TORS10TA3
--- NOTE | 2021-06-21 15:46 | SLEEPCENT ---
DATE: 06/19/2021 ORDERED BY: SUSAN Norton Nocturnal polysomnography was performed for evaluation of sleep physiology in this patient with a history of excessive somnolence and nonrestorative sleep. Seven hours and 43 minutes of data were reviewed. There were 283.5 minutes of sleep identified. Sleep latency was short at 17 minutes. REM sleep was delayed at 289 minutes. Sleep architecture improved later in the study after interventions were made. Overall sleep efficiency was 62%. The electrocardiogram showed a sinus rhythm with an average heart rate of 52 beats per minute. EEG showed normal waveforms for wake and sleep. There were 132 respiratory events identified of 10 seconds in duration or greater for an apnea-hypopnea index of 27.9. Having clearly established the presence of obstructive sleep apnea syndrome early in the study, testing was stopped shortly before midnight for the application of pressure therapy. The patient was fit with a [employer]Med AirFit F20 full face mask of large size, 4 cm of water were applied to the circuit and the lights were extinguished. Throughout the remaining hours of testing, pressure titration was performed to a best pressure of 12 cm of water with which the patient did sleep without respiratory event or significant oxygen desaturation. Limited time was seen on the final CPAP pressure of 12. Some limb activity was noted early in the study. This activity improved substantially after the application of pressure therapy. Limb movement arousal index was 4. IMPRESSION: Obstructive sleep apnea syndrome (G47.33). Apnea-hypopnea index 27.9. RECOMMENDATION: Initiation of pressure therapy at 12 cm of water would seem appropriate based on this test result. Close clinical followup will be necessary as limited time was seen on the optimal pressure. cc: Adriana Hightower RN, ANP
== END ==
LOC: M SLEEP 20:00
PROVIDERS: ATTEND Nurse Practitioner Family
DX: G47.33 Obstructive sleep apnea (adult) (pediatric) (principal)

== ENCOUNTER → 2021-11-16 | Outpatient (CLI) | payer MEDICARE ==
[~2021-11-16] MED LIST changes: +LOSA100T45 PO; -LOSA100T50 PO
[2021-11-16 15:53] LABS: ALBUMIN 3.9 GM/DL (3.2-5.2); ALT/SGPT 47 U/L (12-78); BILIRUBIN,TOTAL 0.3 MG/DL (0.2-1.0); BLOOD UREA NITROGEN 29 MG/DL (7-18); CALCIUM LEVEL 9.9 MG/DL (8.8-10.2); CARBON DIOXIDE LEVEL 29 MEQ/L (21-32); CHLORIDE LEVEL 105 MEQ/L (98-107); CHOLESTEROL LEVEL 148 MG/DL (<200); CHOLESTEROL RISK RATIO 3.441 (<5); CREATININE FOR GFR 0.85 MG/DL (0.70-1.30); GLOMERULAR FILTRATION RATE > 60.0 (>42); GLUCOSE, FASTING 91 MG/DL (70-100); HDL CHOLESTEROL 43 MG/DL (>40); LDL CHOLESTEROL 79 MG/DL (<100); NON-HDL-C 105 MG/DL; POTASSIUM SERUM 4.5 MEQ/L (3.5-5.1); SODIUM LEVEL 138 MEQ/L (136-145); TOTAL PROTEIN 7.6 GM/DL (6.4-8.2); TRIGLYCERIDES LEVEL 131 MG/DL (<150)
[2021-11-16 15:57] LABS: TOTAL 25(OH) VITAMIN D 48.7 NG/ML (30.0-100.0)
[2021-11-16 16:12] LABS: HEMOGLOBIN A1c 5.4 %
== END ==
LOC: M PLAIMG 13:05
PROVIDERS: ATTEND Nurse Practitioner Adult Health
DX: R05.9 Cough, unspecified (principal); R73.01 Impaired fasting glucose; E55.9 Vitamin D deficiency, unspecified; E78.2 Mixed hyperlipidemia; Z79.899 Other long term (current) drug therapy

== ENCOUNTER → 2022-07-12 | Outpatient (CLI) | payer MEDICARE ==
[2022-07-12 18:15] LABS: CHOLESTEROL RISK RATIO 3.29 (<5); HDL CHOLESTEROL 48.9 MG/DL (>40); LDL CHOLESTEROL 79.1 MG/DL (<100)
== END ==
LOC: M PLALAB 16:35
PROVIDERS: ATTEND Family Medicine
DX: Z12.11 Encounter for screening for malignant neoplasm of colon (principal); E78.2 Mixed hyperlipidemia

== ENCOUNTER → 2022-07-12 | Outpatient (CLI) | payer MEDICARE | LOC: M PLAIMG 15:48 | PROVIDERS: ATTEND Neurological Surgery | DX: I67.1 Cerebral aneurysm, nonruptured (principal); R25.1 Tremor, unspecified ==

== ENCOUNTER → 2023-01-31 | Outpatient (CLI) | payer MEDICARE ==
[~2023-01-31] MED LIST changes: -LOSA100T45 PO; +LOSA100T46 PO
[2023-01-31 14:41] LABS: HEMOGLOBIN A1c 5.9 % (4.0-6.0)
[2023-01-31 14:54] LABS: ALKALINE PHOSPHATASE 94 U/L (46-116); ALT/SGPT 21 U/L (7.0-40); AST/SGOT 14 U/L (<34); BILIRUBIN,TOTAL 0.2 MG/DL (0.3-1.2); BLOOD UREA NITROGEN 26 MG/DL (9-23); CALCIUM LEVEL 9.4 MG/DL (8.3-10.6); CARBON DIOXIDE LEVEL 26 MMOL/L (20-31); CHLORIDE LEVEL 109 MMOL/L (98-107); CREATININE FOR GFR 0.89 MG/DL (0.70-1.30); GLOMERULAR FILTRATION RATE > 60.0 (>42); GLUCOSE, FASTING 101 MG/DL (74-106); POTASSIUM SERUM 3.9 MMOL/L (3.5-5.1); SODIUM LEVEL 143 MMOL/L (136-145); TOTAL PROTEIN 6.9 G/DL (5.7-8.2)
[2023-01-31 14:55] LABS: TOTAL 25(OH) VITAMIN D 52.7 NG/ML (20.0-100.0)
== END ==
LOC: M PLALAB 09:22
PROVIDERS: ATTEND Family Medicine
DX: R73.01 Impaired fasting glucose (principal); E55.9 Vitamin D deficiency, unspecified; I10 Essential (primary) hypertension; I87.2 Venous insufficiency (chronic) (peripheral)

== ENCOUNTER → 2023-11-14 | Outpatient (CLI) | payer MEDICARE ==
[~2023-11-14] MED LIST changes: +CELE0.09; -CELE1CAP9
== END ==
LOC: M RAD 09:39
PROVIDERS: ATTEND Family Medicine
DX: Z87.19 Personal history of other diseases of the digestive system (principal)

== ENCOUNTER → 2024-04-24 | Outpatient (CLI) | payer MEDICARE ==
[2024-04-24 19:11] LABS: BLOOD UREA NITROGEN 18 MG/DL (9-23); CREATININE FOR GFR 0.72 MG/DL (0.70-1.30); GLOMERULAR FILTRATION RATE > 60.0 (>42)
== END ==
LOC: M PLALAB 16:44
PROVIDERS: ATTEND Internal Medicine Gastroenterology
DX: C15.9 Malignant neoplasm of esophagus, unspecified (principal); R13.10 Dysphagia, unspecified; R63.4 Abnormal weight loss

== ENCOUNTER → 2024-07-21 | Outpatient (CLI) | payer MEDICARE | LOC: M PLARAD 12:48 | PROVIDERS: ATTEND Internal Medicine | DX: C15.5 Malignant neoplasm of lower third of esophagus (principal) | CPT/HCPCS: 78815; A9552 ==

== ENCOUNTER → 2024-07-22 | Outpatient (REF) | payer MEDICARE ==
[2024-07-22 13:21] LABS: INR 2.5; PROTHROMBIN TIME 27.1 SECONDS (12.5-14.5)
[2024-07-22 13:22] LABS: ALBUMIN 3.7 G/DL (3.2-5.2); ALKALINE PHOSPHATASE 110 U/L (40-129); ALT/SGPT 20 U/L (7.0-40); AST/SGOT 24 U/L (<34); BILIRUBIN,TOTAL 0.5 MG/DL (0.3-1.2); BLOOD UREA NITROGEN 18 MG/DL (9-23); CALCIUM LEVEL 9.6 MG/DL (8.3-10.6); CARBON DIOXIDE LEVEL 29 MMOL/L (20-31); CHLORIDE LEVEL 98 MMOL/L (98-107); CREATININE FOR GFR 0.56 MG/DL (0.70-1.30); GLOMERULAR FILTRATION RATE > 60.0 (>42); GLUCOSE, FASTING 86 MG/DL (74-106); POTASSIUM SERUM 3.1 MMOL/L (3.5-5.1); SODIUM LEVEL 142 MMOL/L (136-145)
[2024-07-22 13:23] LABS: THYROID STIMULATING HORMONE 2.977 uIU/ML (0.55-4.78)
[2024-07-22 13:38] LABS: HEMOGLOBIN A1c 5.3 % (4.0-6.0)
== END ==
LOC: M LAB REF 12:26
PROVIDERS: ATTEND Family Medicine
DX: I48.91 Unspecified atrial fibrillation (principal); R73.03 Prediabetes; C15.9 Malignant neoplasm of esophagus, unspecified; R68.89 Other general symptoms and signs

== ENCOUNTER → 2024-09-04 | Outpatient (REF) | payer MEDICARE ==
[2024-09-04 12:25] LABS: HEMATOCRIT 30.4 % (42.0-52.0); HEMOGLOBIN 9.8 g/dl (13.5-17.5); MEAN CORPUSCULAR HEMOGLOBIN 35.6 pg (27.0-33.0); MEAN CORPUSCULAR HGB CONC 32.2 g/dl (32.0-36.5); MEAN CORPUSCULAR VOLUME 110.5 fl (80.0-96.0); PLATELET COUNT, AUTOMATED 236 10^3/uL (150-450); RED BLOOD COUNT 2.75 10^6/uL (4.30-6.10); WHITE BLOOD COUNT 2.9 10^3/uL (4.0-10.0)
[2024-09-04 12:44] LABS: INR 0.99; PROTHROMBIN TIME 13.4 SECONDS (12.5-14.5)
== END ==
LOC: M LAB REF 12:19
PROVIDERS: ATTEND Family Medicine
DX: I48.91 Unspecified atrial fibrillation (principal); Z79.01 Long term (current) use of anticoagulants; C15.9 Malignant neoplasm of esophagus, unspecified

== ENCOUNTER 2024-09-21 18:06 | Emergency (ER) | payer MEDICARE, MEDICAID ==
[~2024-09-21] VITALS: Ht 172.7 cm; Wt 78.5 kg
[2024-09-21 22:29] VITALS: BP 129/64; TEMP 97.8; O2SAT 98
== END 2024-09-21 23:20 | disposition home or self-care (01) ==
LOC: M ED 18:06
DX: K59.00 Constipation, unspecified (principal); I10 Essential (primary) hypertension; Z79.899 Other long term (current) drug therapy